=== PATIENT | male | born 1965 | race Caucasian/White ===

== ENCOUNTER → 2020-01-29 12:27 | Outpatient (BNVA) | payer OTHER, SELFPAY | PROVIDERS: PCP Internal Medicine; Referring Provider Internal Medicine; Visit Provider Internal Medicine Cardiovascular Disease | DX: Z76.89 Persons encountering health services in other specified circumstances (principal) ==

== ENCOUNTER 2020-04-25 10:28 | Outpatient (REF) | payer OTHER, SELFPAY ==
[2020-04-25 11:09] LABS: MANUAL DIFF FLAG NO
[2020-04-25 11:12] LABS: Basophils Absolute Auto 0.1 X10*3/uL (0.0-0.2); Basophils Percent Auto 0.9 % (0-2); Eosinophils Absolute Auto 0.3 X10*3/uL (0.0-0.4); Eosinophils Percent Auto 4.1 % (0-4); Hematocrit 45.4 % (42-52); Hemoglobin 15.6 g/dl (14.0-18.0); Imm Gran Abs Auto 0.03 X10*3/uL (0.00-0.03); Imm Gran Pct Auto 0.4 % (0.0-0.4); Lymphocytes Absolute Auto 1.8 X10*3/uL (1.2-4.9); Lymphocytes Percent Auto 26.3 % (20-40); Mean Corpuscular HGB Conc 34.4 g/dl (31.0-36.0); Mean Corpuscular Hemoglobin 31.4 pg (27.0-33.0); Mean Corpuscular Volume 91.3 fL (80-98); Monocytes Absolute Auto 0.7 X10*3/uL (0.1-1.2); Monocytes Percent Auto 10.7 % (2-11); Neutrophils Percent Auto 57.6 % (45-73); Platelet Count 207 X10*3/uL (160-400); Red Blood Count 4.97 X10*6/uL (4.60-5.80); Red Cell Distribution Width 12.6 % (11.0-16.0); White Blood Count 6.9 X10*3/uL (4.8-10.8)
[2020-04-25 11:27] LABS: Estimated Average Glucose 226 mg/dL; Hemoglobin A1c % 9.5 %
[2020-04-25 11:50] LABS: B Type Natriuretic Peptide 14 pg/mL (<100)
[2020-04-25 12:02] LABS: Free T4 (Free Thyroxine) 1.01 ng/dL (0.71-1.85); Thyroid Stimulating Hormone 1.04 uIU/mL (0.32-4.0)
[2020-04-25 12:11] LABS: Alanine Aminotransferase 67 U/L (0-40); Albumin Level 4.4 g/dL (3.5-5.0); Alkaline Phosphatase 67 U/L (39-117); Anion Gap 14 (12-20); Aspartate Amino Transferase 29 U/L (5-37); Blood Urea Nitrogen 20 mg/dL (9-16); Calcium 9.2 mg/dL (8.4-10.2); Carbon Dioxide 27 mmol/L (22-29); Chloride 102 mmol/L (96-108); Cholesterol 168 mg/dL; Estimated Glomerular Filt Rate > 60; Glucose Random 238 mg/dL (60-115); HDL Cholesterol 32 mg/dL; LDL Cholesterol Calculated 109 mg/dl; Potassium 4.3 mmol/L (3.3-5.1); Sodium 139 mmol/L (135-145); Total Protein 7.2 g/dL (6.5-8.0); Triglycerides 137 mg/dL
[2020-04-25 12:25] LABS: Folate 13.6 ng/mL (> or = 4.0); Vitamin B12 509 pg/mL (200-900)
== END 2020-04-25 10:29 | disposition home or self-care (01) ==
LOC: HO.LAB 10:28
PROVIDERS: PCP Internal Medicine; Visit Provider Internal Medicine
DX: E11.65 Type 2 diabetes mellitus with hyperglycemia (principal); I42.8 Other cardiomyopathies; I10 Essential (primary) hypertension; E78.00 Pure hypercholesterolemia, unspecified
CPT/HCPCS: 36415; 80053; 80061; 82607; 82746; 83036; 83880; 84439; 84443; 85025

== ENCOUNTER → 2020-07-18 13:24 | Outpatient (BNVA) | payer OTHER, SELFPAY | PROVIDERS: PCP Internal Medicine; Referring Provider Internal Medicine; Visit Provider Internal Medicine Cardiovascular Disease ==

== ENCOUNTER → 2020-09-18 15:07 | Outpatient (REF) | payer OTHER, SELFPAY ==
--- NOTE | 2020-09-18 15:12 | CA_ITS ---
Transthoracic Echocardiogram Patient (Last, First, Middle): Mark Roth P Gender: Male Date of : 1965 Age: 54 Procedure Date: 09/18/2020 Procedure Type: Transthoracic Echocardiogram Location: OP Height: 175.26 cm Weight: 133.81 kg BSA: 2.44 m2 Heart Rate: bpm BP: 130 / 82 mmHg Splunk Developer: JOB/CP Referring MD: Papi Peterson MD Detasseler: Papi Peterson MD Symptoms: I42.8 - Other cardiomyopathies Study Quality: Technically Difficult/Contrast ECG Rhythm: Ventriculary paced rhythm Conclusions: - 1. Mildly dilated left ventricle with normal LV systolic function with LVEF of 55-60% with grade 1 diastolic dysfunction 2. Normal cardiac valvular Doppler 3. Normal RV systolic pressure 4. No gross pericardial effusion Findings Procedure Information Contrast agent, definity, is being given per protocol without apparent complications. Left Ventricle Mildly increased left ventricular cavity size. There is normal left ventricular wall thickness. The left ventricular systolic function is normal. The visually estimated ejection fraction is between 55-60%. Spectral Doppler is indicative of an impaired relaxation filling pattern. E/E prime ratio is <8, consistent with normal filling pressures. Evidence suggests grade I (mild) diastolic dysfunction. Right Ventricle Normal right ventricular cavity size and systolic function. There is a pacemaker wire seen in the right ventricle. Atria The left atrium is normal in size. Interatrial shunt cannot be excluded. The right atrium is normal in size. A pacemaker wire is identified in the right atrium. Aortic Valve The aortic valve was not well visualized. There is no aortic valve stenosis. There is no aortic valve regurgitation. Mitral Valve Likely normal mitral valve structure and function. There is trace mitral valve regurgitation. There is no mitral valve stenosis. Pulmonic Valve The pulmonic valve was not well visualized. Tricuspid Valve The tricuspid valve was not well visualized. There is trace tricuspid valve regurgitation. The right ventricular systolic pressure is normal. Normal right atrial pressure. There is no evidence of pulmonary hypertension. Great Vessels All visible segments of the aorta are normal in size. The pulmonary artery was not well visualized. Venous The inferior vena cava was not well visualized. Pericardium/Pleural There is no evidence of pericardial effusion. Prior Study Comparison Changes noted compared to prior study dated: 05/24/2019. LV systolic function is normalized Measurements 2D Linear Measurements IVSd: 1.14 0.6-0.9/0.6-1.0 cm LVIDd: 5.90 3.9-5.3/4.2-5.9 cm LVIDd Index: 2.42 2.4-3.2/2.2-3.1 cm/m2 LVIDs: 4.70 2.0-3.6 cm LVPWd: 1.16 0.7-1.1 cm Ao Root: 3.40 2.1-3.5 cm LA Diam: 4.60 2.7-3.8/3.0-4.0 cm LAIDs Index: 1.89 1.5-2.3 cm/m2 LV Mass: 359.83 67-162/88-224 g LV Mass Index: 147.47 43-95/49-115 g/m2 LVOT Diam: 2.30 3.0+(-)1.3 cm 2D Systolic Function EF 4C: 57.00 >55% EF 2C: 61.50 >55% EF BiP: 59.50 >55% Mitral Valve MV Pk E: 0.67 MV PK A: 0.68 MV Decel Time: 244.00 E/A: 1.00 E'Lateral: 11.90 E'Medial: 7.62 E/E' Med: 8.80 E/E' Lat: 5.60 PHT: 72.00 MVA PHT: 3.06 Decel [place]: 2.75 Aortic Valve AoV Pk Gibran: 1.75 AoV Mn Gibran: 1.25 AoV VTI: 0.36 AoV Pk Grad: 12.00 Aov Mn Grad: 7.00 DIMITRY Cont.VTI: 2.64 LVOT LVOT Pk Gibran: 1.17 LVOT Mn Gibran: 0.82 LVOT VTI: 0.23 LVOT Pk Grad: 5.00 LVOT Mn Grad: 3.00 LVOT Diam: 2.30 LVOT Area: 4.15 Diastolic Function MV Pk E: 0.67 MV Pk A: 0.68 E/A: 1.00 E'Medial: 7.62 E/E' Med: 8.80 E' Laterial: 11.90 E/E' Lat: 5.60 Tricuspid Valve TR Pk Gibran: 1.52 TR Pk Grad: 9.00 RA Press: 3.00 RVSP: 12.00 Great Vessels Aorta Ao Root-2D: 3.40 2.0-3.7 cm Ao Asc: 3.90 2.1-3.4 cm Ao Arch: 3.50 Updated in Other Vendor System with Status of Final Papi Peterson MD electronically signed on 09/18/2020 4:57:20 PM with status of Final
== END ==
LOC: HO.CARD 15:07
PROVIDERS: PCP Internal Medicine; Visit Provider Internal Medicine Cardiovascular Disease
DX: I42.8 Other cardiomyopathies (principal)
CPT/HCPCS: 93306; Q9957

== ENCOUNTER 2020-10-28 14:52 | Outpatient (REF) | payer OTHER, SELFPAY ==
--- NOTE | ~2020-10-28 | XR_ITS ---
EXAMINATION: XR RIBS, RIGHT CLINICAL INFORMATION: Pleurodynia COMPARISON: September 26, 2019 TECHNIQUE: PA chest and 3 views of the right ribs FINDINGS: There is no evidence of acute parenchymal disease, pneumothorax, or pleural effusion. Heart normal size. No evidence of pulmonary edema. Pacemaker in place. No acute displaced right rib fracture identified. No expansile destructive bony lesion is identified. XR/XR ribs RT min 3V w CXR1V IMPRESSION: No acute parenchymal disease within the chest. No acute displaced right rib fracture.
== END 2020-10-28 14:53 | disposition home or self-care (01) ==
LOC: HO.HMGCX 14:52
PROVIDERS: PCP Internal Medicine; Visit Provider Hospitalist
DX: R07.81 Pleurodynia (principal)
CPT/HCPCS: 71101

== ENCOUNTER 2020-11-18 09:34 | Outpatient (REF) | payer OTHER, SELFPAY | END 2020-11-18 09:35 | disposition home or self-care (01) | LOC: HO.LAB 09:34 | PROVIDERS: PCP Internal Medicine; Visit Provider Internal Medicine | DX: Z13.89 Encounter for screening for other disorder (principal) ==

== ENCOUNTER → 2021-01-16 10:37 | Outpatient (BNVA) | payer OTHER, SELFPAY | PROVIDERS: PCP Internal Medicine; Referring Provider Internal Medicine; Visit Provider Internal Medicine Cardiovascular Disease | DX: Z45.02 Encounter for adjustment and management of automatic implantable cardiac defibrillator (principal); I42.8 Other cardiomyopathies | CPT/HCPCS: 93005 ==

== ENCOUNTER 2021-02-19 08:29 | Outpatient (REF) | payer OTHER, SELFPAY ==
[2021-02-19 09:52] LABS: Estimated Average Glucose 223 mg/dL; Hemoglobin A1c % 9.4 %
[2021-02-19 10:02] LABS: Alanine Aminotransferase 55 U/L (0-40); Albumin Level 4.1 g/dL (3.5-5.0); Alkaline Phosphatase 62 U/L (39-117); Anion Gap 12 (12-20); Aspartate Amino Transferase 32 U/L (5-37); Blood Urea Nitrogen 14 mg/dL (9-16); Calcium 9.3 mg/dL (8.4-10.2); Carbon Dioxide 26 mmol/L (22-29); Chloride 102 mmol/L (96-108); Cholesterol 153 mg/dL; Estimated Glomerular Filt Rate > 60; Glucose Random 241 mg/dL (60-115); HDL Cholesterol 29 mg/dL; LDL Cholesterol Calculated 91 mg/dl; Potassium 4.2 mmol/L (3.3-5.1); Sodium 136 mmol/L (135-145); Total Protein 6.8 g/dL (6.5-8.0); Triglycerides 165 mg/dL
[2021-02-19 10:36] LABS: B Type Natriuretic Peptide 17 pg/mL (<100)
== END 2021-02-19 08:30 | disposition home or self-care (01) ==
LOC: HO.LAB 08:29
PROVIDERS: PCP Internal Medicine; Visit Provider Internal Medicine
DX: E11.65 Type 2 diabetes mellitus with hyperglycemia (principal); E78.00 Pure hypercholesterolemia, unspecified; I42.8 Other cardiomyopathies
CPT/HCPCS: 36415; 80053; 80061; 83036; 83880

== ENCOUNTER 2021-03-03 12:23 | Outpatient (REF) | payer OTHER, SELFPAY ==
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
== END 2021-03-03 12:24 | disposition home or self-care (01) ==
LOC: HO.XRAY 12:23
PROVIDERS: PCP Internal Medicine; Visit Provider Nurse Practitioner Acute Care
DX: M89.8X5 Other specified disorders of bone, thigh (principal); M25.551 Pain in right hip
CPT/HCPCS: 73552

== ENCOUNTER 2021-05-29 11:37 | Outpatient (REF) | payer OTHER, SELFPAY ==
[2021-05-29 12:16] LABS: Baso%MD 0.8 %; Eos%MD 3.2 %; Hematocrit 42.8 % (42.0-52.0); Hemoglobin 14.4 g/dl (14.0-18.0); IG%MD 0.5 %; Lymph%MD 23.3 %; Mean Corpuscular HGB Conc 33.6 g/dl (31.0-36.0); Mean Corpuscular Hemoglobin 31.4 pg (27.0-33.0); Mean Corpuscular Volume 93.4 fL (80.0-98.0); Mean Platelet Volume 9.8 fL (9.4-12.4); Mono%MD 10.9 %; Neut%MD 61.3 %; Platelet Count 191 X10*3/uL (160-400); Red Blood Count 4.58 X10*6/uL (4.60-5.80); Red Cell Distribution Width 13.2 % (11.0-16.0); White Blood Count 7.9 X10*3/uL (4.8-10.8)
[2021-05-29 12:55] LABS: Band Neutrophils Percent 2 % (3-5); Eosinophils Absolute Manual 0.3 X10*3/uL (0.0-0.4); Eosinophils Percent Manual 4 % (0-4); Lymphocytes Absolute Manual 2.1 X10*3/uL (1.2-4.9); Lymphocytes Percent Manual 27 % (20-40); Monocytes Absolute Manual 0.6 X10*3/uL (0.1-1.2); Monocytes Percent Manual 8 % (2-11); Neutrophils Absolute Manual 4.8 X10*3/uL (2.0-8.3); Neutrophils Percent Manual 59 % (45-73); Platelet Estimate NORMAL (NORMAL); Platelet Morphology Comment NORMAL; RBC Morphology NORMAL
[2021-05-29 12:58] LABS: Estimated Average Glucose 203 mg/dL; Hemoglobin A1c % 8.7 %
[2021-05-29 13:28] LABS: Creatinine Urine 206.19 mg/dL; Microalbum/Creatinine Ratio Ur 4.8 ug/mg cr
[2021-05-29 14:19] LABS: Alanine Aminotransferase 51 U/L (0-40); Albumin Level 4.1 g/dL (3.5-5.0); Alkaline Phosphatase 62 U/L (39-117); Anion Gap 14 (12-20); Aspartate Amino Transferase 24 U/L (5-37); Blood Urea Nitrogen 15 mg/dL (9-16); Calcium 9.7 mg/dL (8.4-10.2); Carbon Dioxide 25 mmol/L (22-29); Chloride 104 mmol/L (96-108); Cholesterol 146 mg/dL; Estimated Glomerular Filt Rate > 60; Glucose Fasting 197 mg/dL (60-99); HDL Cholesterol 33 mg/dL; LDL Cholesterol Calculated 92 mg/dl; Sodium 139 mmol/L (135-145); Total Protein 6.8 g/dL (6.5-8.0); Triglycerides 109 mg/dL
[2021-05-29 14:43] LABS: Prostate Specific Antigen Scr 0.97 ng/mL (<0.05-4.0)
== END 2021-05-29 11:38 | disposition home or self-care (01) ==
LOC: HO.LAB 11:37
PROVIDERS: Absent Provider Internal Medicine; PCP Internal Medicine; Visit Provider Nurse Practitioner Acute Care
DX: Z12.5 Encounter for screening for malignant neoplasm of prostate (principal); E11.65 Type 2 diabetes mellitus with hyperglycemia
CPT/HCPCS: 36415; 80053; 80061; 82043; 83036; 84153; 84443; 85007; 85027

== ENCOUNTER 2021-06-13 08:02 | Outpatient (REF) | payer OTHER, SELFPAY ==
--- NOTE | ~2021-06-13 | XR_ITS ---
EXAMINATION: XR HIP, RIGHT CLINICAL INFORMATION: Pain COMPARISON: Right femur x-rays 03/03/2021 TECHNIQUE: Two views of the right hip. FINDINGS: Pelvic ring is intact. Visualized portion of the proximal right femur demonstrate no fracture. There is mild narrowing of the right femoral acetabular joint space. Small osteophyte along the superolateral right acetabular margin. Small pelvic calcifications are likely vascular in nature. Limited imaging of the left hip demonstrates mild degenerative changes. XR/XR hip RT w PEL1V IMPRESSION: Mild degenerative changes of the right hip without fracture or dislocation.
== END 2021-06-13 08:03 | disposition home or self-care (01) ==
LOC: HO.HOSX 08:02
PROVIDERS: Visit Provider Physician Assistant
DX: M70.61 Trochanteric bursitis, right hip (principal)
CPT/HCPCS: 20610; 73502; J1020

== ENCOUNTER 2021-09-10 10:03 | Outpatient (REF) | payer OTHER, SELFPAY ==
[2021-09-10 10:34] LABS: MANUAL DIFF FLAG NO
[2021-09-10 10:43] LABS: Basophils Absolute Auto 0.1 X10*3/uL (0.0-0.2); Basophils Percent Auto 0.9 % (0-2); Eosinophils Absolute Auto 0.2 X10*3/uL (0.0-0.4); Eosinophils Percent Auto 3.8 % (0-4); Imm Gran Abs Auto 0.03 X10*3/uL (0.00-0.03); Imm Gran Pct Auto 0.5 % (0.0-0.4); Lymphocytes Absolute Auto 1.5 X10*3/uL (1.2-4.9); Lymphocytes Percent Auto 25.9 % (20-40); Mean Corpuscular HGB Conc 34.1 g/dl (31.0-36.0); Mean Corpuscular Hemoglobin 31.8 pg (27.0-33.0); Mean Corpuscular Volume 93.2 fL (80.0-98.0); Mean Platelet Volume 9.6 fL (9.4-12.4); Monocytes Absolute Auto 0.7 X10*3/uL (0.1-1.2); Monocytes Percent Auto 11.4 % (2-11); Neutrophils Absolute Auto 3.3 x10*3/uL (2.0-8.3); Neutrophils Percent Auto 57.5 % (45-73); Platelet Count 206 X10*3/uL (160-400); Red Blood Count 4.72 X10*6/uL (4.60-5.80); Red Cell Distribution Width 13.2 % (11.0-16.0); White Blood Count 5.7 X10*3/uL (4.8-10.8)
[2021-09-10 10:50] LABS: Estimated Average Glucose 177 mg/dL; Hemoglobin A1c % 7.8 %
[2021-09-10 11:32] LABS: Alanine Aminotransferase 52 U/L (0-40); Albumin Level 4.3 g/dL (3.5-5.0); Alkaline Phosphatase 62 U/L (39-117); Anion Gap 12 (12-20); Aspartate Amino Transferase 34 U/L (5-37); Bilirubin Total 1.9 mg/dL (0.0-1.0); Blood Urea Nitrogen 13 mg/dL (9-16); Calcium 9.2 mg/dL (8.4-10.2); Carbon Dioxide 27 mmol/L (22-29); Chloride 106 mmol/L (96-108); Cholesterol 142 mg/dL; Estimated Glomerular Filt Rate > 60; Glucose Random 168 mg/dL (60-115); HDL Cholesterol 30 mg/dL; LDL Cholesterol Calculated 87 mg/dl; Potassium 4.3 mmol/L (3.3-5.1); Sodium 141 mmol/L (135-145); Total Protein 7.1 g/dL (6.5-8.0); Triglycerides 129 mg/dL
[2021-09-10 11:34] LABS: Free T4 (Free Thyroxine) 1.17 ng/dL (0.71-1.85); Prostate Specific Antigen Scr 0.91 ng/mL (<0.05-4.0); Thyroid Stimulating Hormone 1.24 uIU/mL (0.32-4.0)
[2021-09-10 11:48] LABS: Folate 17.3 ng/mL (> or = 4.0); Vitamin B12 339 pg/mL (200-900)
[2021-09-10 12:35] LABS: Creatinine Urine 99.76 mg/dL
[2021-09-10 15:12] LABS: Creatinine Urine 96.09 mg/dL
== END 2021-09-10 10:04 | disposition home or self-care (01) ==
LOC: HO.LAB 10:03
PROVIDERS: PCP Internal Medicine; Referring Provider Internal Medicine; Visit Provider Nurse Practitioner Acute Care
DX: Z12.5 Encounter for screening for malignant neoplasm of prostate (principal); E11.65 Type 2 diabetes mellitus with hyperglycemia; E78.00 Pure hypercholesterolemia, unspecified
CPT/HCPCS: 36415; 80053; 80061; 82043; 82607; 82746; 83036; 84153; 84439; 84443; 85025

== ENCOUNTER 2021-11-19 13:27 | Emergency (ER) | payer OTHER, SELFPAY ==
--- NOTE | 2021-11-19 13:53 | ECG_ITS ---
Test Reason : dizziness sob Blood Pressure : / mmHG Vent. Rate : 077 BPM Atrial Rate : 077 BPM P-R Int : 172 ms QRS Dur : 128 ms QT Int : 432 ms P-R-T Axes : 033 -44 124 degrees QTc Int : 488 ms Atrial-sensed ventricular-paced rhythm Abnormal ECG When compared with ECG of 16-MAY-2007 12:06, Electronic ventricular pacemaker has replaced Sinus rhythm Referred By: Generic ED Physician Electronically Signed By:PETRA HERNANDEZ
[2021-11-19 13:54] VITALS: BP 152/83; PULSE 86; RESP 18; TEMP 36.7; O2SAT 99; BMI 41.3
[2021-11-19 14:21] LABS: MANUAL DIFF FLAG NO
[2021-11-19 14:22] LABS: Basophils Percent Auto 0.7 % (0-2); Eosinophils Absolute Auto 0.2 X10*3/uL (0.0-0.4); Eosinophils Percent Auto 2.7 % (0-4); Hematocrit 43.5 % (42.0-52.0); Hemoglobin 14.7 g/dl (14.0-18.0); Imm Gran Abs Auto 0.03 X10*3/uL (0.00-0.03); Imm Gran Pct Auto 0.5 % (0.0-0.4); Lymphocytes Absolute Auto 1.4 X10*3/uL (1.2-4.9); Lymphocytes Percent Auto 22.4 % (20-40); Mean Corpuscular HGB Conc 33.8 g/dl (31.0-36.0); Mean Corpuscular Hemoglobin 31.3 pg (27.0-33.0); Mean Corpuscular Volume 92.8 fL (80.0-98.0); Mean Platelet Volume 9.7 fL (9.4-12.4); Monocytes Absolute Auto 0.5 X10*3/uL (0.1-1.2); Neutrophils Absolute Auto 3.9 x10*3/uL (2.0-8.3); Neutrophils Percent Auto 64.7 % (45-73); Platelet Count 190 X10*3/uL (160-400); Red Blood Count 4.69 X10*6/uL (4.60-5.80); Red Cell Distribution Width 12.6 % (11.0-16.0)
[2021-11-19 14:38] LABS: COVID-19 Test Negative (Negative)
[2021-11-19 14:54] LABS: Anion Gap 17 (12-20); Blood Urea Nitrogen 11 mg/dL (9-16); Calcium 9.6 mg/dL (8.4-10.2); Carbon Dioxide 22 mmol/L (22-29); Chloride 107 mmol/L (96-108); Estimated Glomerular Filt Rate > 60; Glucose Random 253 mg/dL (60-115); Potassium 3.7 mmol/L (3.3-5.1); Sodium 142 mmol/L (135-145)
[2021-11-19 14:58] LABS: Troponin-I High Sensitivity < 3.5 ng/L (<3.5-35.0)
[2021-11-19 18:20] LABS: Glucose, Whole Blood 211 mg/dL (60-115)
--- NOTE | 2021-11-19 20:01 | ED.GENADULT ---
HPI - General Adult General Chief complaint: General Medical Stated complaint: not feeling well, shaky Time Seen by Provider: 11/19/21 19:45 History of Present Illness HPI narrative: Patient is a 55-year-old male with a history of cardiomyopathy. History of diabetes, hypertension. History of ventricular tachycardia. Status post AICD placement. Patient had an episode of feeling lightheaded. Almost passed out. Not associated with chest pain. No bloody stool. The episode lasted a few minutes. He attempted to take some food to no avail initially. The symptoms eventually resolved. Patient never checked the sugar. Patient denies any fever chills coughing congestion upper respiratory symptoms. No diaphoresis. Patient's defibrillator is a Biotronik AICD. Related Data Home Medications Medication Instructions Recorded Confirmed CPAP full face mask medium size 13 #1 ea 04/22/20 09/01/21 cm H2O humidified Air furosemide 40 mg tablet 40 mg PO DAILY PRN 07/18/20 09/01/21 Previous Rx's Medication Instructions Recorded fluticasone propionate 50 2 spray intranasal DAILY #16 grams 10/30/20 mcg/actuation nasal spray,suspension (Flonase Allergy Relief) lovastatin 40 mg tablet 40 mg PO DAILY #90 tabs 11/04/20 metoprolol succinate 100 mg 100 mg PO DAILY #90 tabs 01/03/21 tablet,extended release 24 hr lidocaine 4 % topical patch 1 patch topical DAILY PRN pain #10 04/09/21 (Aspercreme (lidocaine)) ea empagliflozin 10 mg tablet 10 mg PO DAILY 30 days #30 tabs 05/29/21 (Jardiance) lisinopril 40 mg tablet 40 mg PO DAILY #90 tabs 06/06/21 metformin 1,000 mg tablet 1,000 mg PO BID #180 tabs 06/06/21 clotrimazole 1 % topical cream 1 appl topical BID 4 weeks #45 08/28/21 grams Allergies Allergy/AdvReac Type Severity Reaction Status Date / Time morphine [Morphine] Allergy Mild FLUSH, Verified 09/10/21 11:57 SHORT OF BREATH SEASONAL ALLERGIES Allergy Unknown SHORT OF Uncoded 09/10/21 11:57 BREATH Review of Systems Review of Systems: No fever no chills no chest pain Yes all other systems are reviewed and are negative PMFSH Past Medical History Attestation statement: The following information was validated with the patient. Medical History Biventricular ICD (implantable cardioverter-defibrillator) in place Fatty liver GERD (gastroesophageal reflux disease) HTN (hypertension) Hypercholesterolemia Left bundle branch block Morbid obesity Nonischemic cardiomyopathy ZAEEM (obstructive sleep apnea) Peripheral vascular disease Ventricular tachycardia Vitamin D deficiency Surgical History History of cardiac catheterization History of permanent cardiac pacemaker placement Family History Family History Father CHF (congestive heart failure) Diabetes Mother No problems noted. Social History Social History Housing: House Alcohol intake: current Alcohol intake frequency: a few times a week Patient Tobacco Use Status: Never used Tobacco e-Cigarette/Vaping Use: Never Used Second Hand Smoke Exposure: No Advance Directives: No Advance Directives Information Provided: No service: No Current occupational status: employed Cognitive needs: No Hearing needs: No Vision needs: Yes (reading glasses) Physical Exam ED Vital Signs: Vital Signs - 24 hr 11/19/21 13:54 11/19/21 21:15 Temperature 98.1 F 97.8 F Pulse Rate 86 96 Respiratory Rate 18 18 Blood Pressure 152/83 H 143/90 H Pulse Oximetry 99 98 Oxygen Delivery Method Room Air Room Air BMI result Body Mass Index 41.3 Appearance: Alert. Oriented X3. No acute distress. Eyes: Pupils equal, round and reactive to light. ENT: Pharynx normal. Neck: Normal inspection. Neck supple. No lymph nodes noted. No crepitus CVS: Normal heart rate and rhythm. Pulses normal. Normal S1 and S2 Respiratory: No respiratory distress. Breath sounds normal. No Wheezing. No rales Abdomen: Soft and nontender. No rigidity. No distention. good BS x4 Skin: Skin warm and dry. Normal skin color. Normal skin turgor. Extremities: No lower extremity edema. Neurovascular intact to all extremities. No Lacerations. No Rash Neuro: Oriented X 3. No motor deficit. No sensory deficit. Moving all extermities. No slurred speech Medical Decision Making MDM Narrative Medical decision making narrative: Patient's EKG showed a paced rhythm heart rate is 75. Patient's cardiac enzyme was negative. No distress. Neurologically intact. Patient's defibrillator was interrogated. No arrhythmia was detected. More likely patient's episode likely secondary to low sugar. Will discharge patient home. Close follow-up on an outpatient basis. In stable condition. Troponin was negative as well. Lab Data Result diagrams: 11/19/21 14:12 11/19/21 14:12 Labs: Lab Results 11/19/21 11/19/21 11/19/21 Range/Units 13:58 14:12 14:12 WBC 6.0 (4.8-10.8) X10*3/uL RBC 4.69 (4.60-5.80) X10*6/uL Hgb 14.7 (14.0-18.0) g/dl Hct 43.5 (42.0-52.0) % MCV 92.8 (80.0-98.0) fL MCH 31.3 (27.0-33.0) pg MCHC 33.8 (31.0-36.0) g/dl RDW 12.6 (11.0-16.0) % Plt Count 190 (160-400) X10*3/uL MPV 9.7 (9.4-12.4) fL Immature Gran % (Auto) 0.5 H (0.0-0.4) % Neut % (Auto) 64.7 (45-73) % Lymph % (Auto) 22.4 (20-40) % [place] % (Auto) 9.0 (2-11) % Eos % (Auto) 2.7 (0-4) % Baso % (Auto) 0.7 (0-2) % Lymph # (Auto) 1.4 (1.2-4.9) X10*3/uL [place] # (Auto) 0.5 (0.1-1.2) X10*3/uL Eos # (Auto) 0.2 (0.0-0.4) X10*3/uL Baso # (Auto) 0.0 (0.0-0.2) X10*3/uL Abs Immat Gran (auto) 0.03 (0.00-0.03) X10*3/uL Absolute Neuts (auto) 3.9 (2.0-8.3) x10*3/uL Absolute Nucleated RBC 0.000 (0.0-0.012) X10*3/uL Nucleated RBC % (auto) 0.0 (0.0-0.2) /100WBC Sodium 142 (135-145) mmol/L Potassium 3.7 (3.3-5.1) mmol/L Chloride 107 (96-108) mmol/L Carbon Dioxide 22 (22-29) mmol/L Anion Gap 17 (12-20) BUN 11 (9-16) mg/dL Creatinine 0.94 (0.5-1.4) mg/dL Estim Creat Clear Calc 117.0 Estimated GFR > 60 POC Glucose 211 H (60-115) mg/dL Random Glucose 253 H D (60-115) mg/dL Calcium 9.6 (8.4-10.2) mg/dL Troponin I High Sens (<3.5-35.0) ng/L COVID-19 (JIMY) (Negative) COVID-19 Clin Com 11/19/21 11/19/21 Range/Units 14:12 14:12 WBC (4.8-10.8) X10*3/uL RBC (4.60-5.80) X10*6/uL Hgb (14.0-18.0) g/dl Hct (42.0-52.0) % MCV (80.0-98.0) fL MCH (27.0-33.0) pg MCHC (31.0-36.0) g/dl RDW (11.0-16.0) % Plt Count (160-400) X10*3/uL MPV (9.4-12.4) fL Immature Gran % (Auto) (0.0-0.4) % Neut % (Auto) (45-73) % Lymph % (Auto) (20-40) % [place] % (Auto) (2-11) % Eos % (Auto) (0-4) % Baso % (Auto) (0-2) % Lymph # (Auto) (1.2-4.9) X10*3/uL [place] # (Auto) (0.1-1.2) X10*3/uL Eos # (Auto) (0.0-0.4) X10*3/uL Baso # (Auto) (0.0-0.2) X10*3/uL Abs Immat Gran (auto) (0.00-0.03) X10*3/uL Absolute Neuts (auto) (2.0-8.3) x10*3/uL Absolute Nucleated RBC (0.0-0.012) X10*3/uL Nucleated RBC % (auto) (0.0-0.2) /100WBC Sodium (135-145) mmol/L Potassium (3.3-5.1) mmol/L Chloride (96-108) mmol/L Carbon Dioxide (22-29) mmol/L Anion Gap (12-20) BUN (9-16) mg/dL Creatinine (0.5-1.4) mg/dL Estim Creat Clear Calc Estimated GFR POC Glucose (60-115) mg/dL Random Glucose (60-115) mg/dL Calcium (8.4-10.2) mg/dL Troponin I High Sens < 3.5 (<3.5-35.0) ng/L COVID-19 (JIMY) Negative (Negative) COVID-19 Clin Com See Note Discharge Plan Discharge Clinical Impression: Hypoglycemia, Near syncope Patient Disposition: Home, Self-Care Instructions: Near Syncope (ED), Diabetes and Nutrition (ED) Prescriptions: No Action fluticasone propionate [Flonase Allergy Relief] 50 mcg/actuation spray,suspension 2 spray intranasal DAILY Qty: 16 11RF Rx Instructions: administer into each nostril lovastatin 40 mg tablet 40 mg PO DAILY Qty: 90 3RF metoprolol succinate 100 mg tablet extended release 24 hr 100 mg PO DAILY Qty: 90 3RF metformin 1,000 mg tablet 1,000 mg PO BID Qty: 180 3RF lisinopril 40 mg tablet 40 mg PO DAILY Qty: 90 2RF (DME) CPAP full face mask medium size 13 cm H2O humidified Air 0 .Route .MEDSUPPLY Qty: 1 Jardiance 10 mg tablet 10 mg PO DAILY 30 Days Qty: 30 3RF clotrimazole 1 % cream 1 appl topical BID 28 Days Qty: 45 0RF lidocaine [Aspercreme (lidocaine)] 4 % adhesive patch,medicated 1 patch topical DAILY PRN (Reason: pain) Qty: 10 0RF furosemide 40 mg tablet 40 mg PO DAILY PRN Referrals: Po,Ondina Langford MD [Primary Care Provider] -
[2021-11-19 21:15] VITALS: BP 143/90; PULSE 96; RESP 18; TEMP 36.6; O2SAT 98
[2021-11-19 22:23] LABS: Glucose, Whole Blood 225 mg/dL (60-115)
== END 2021-11-19 22:27 | disposition home or self-care (01) ==
PROVIDERS: Emergency Medicine; Emergency Provider Emergency Medicine Emergency Medical Services; PCP Internal Medicine
DX: E11.649 Type 2 diabetes mellitus with hypoglycemia without coma (principal); I10 Essential (primary) hypertension; R07.89 Other chest pain; R42 Dizziness and giddiness; R06.02 Shortness of breath; Z20.822 Contact with and (suspected) exposure to COVID-19; Z79.899 Other long term (current) drug therapy
CPT/HCPCS: 80048; 82947; 84484; 85025; 87635; 93005; 99283

== ENCOUNTER 2022-02-11 11:41 | Outpatient (REF) | payer OTHER, SELFPAY ==
[2022-02-11 11:57] LABS: MANUAL DIFF FLAG NO
[2022-02-11 12:20] LABS: Basophils Absolute Auto 0.1 X10*3/uL (0.0-0.2); Basophils Percent Auto 0.8 % (0-2); Eosinophils Absolute Auto 0.3 X10*3/uL (0.0-0.4); Eosinophils Percent Auto 4.1 % (0-4); Hematocrit 45.9 % (42.0-52.0); Hemoglobin 15.5 g/dl (14.0-18.0); Imm Gran Abs Auto 0.03 X10*3/uL (0.00-0.03); Imm Gran Pct Auto 0.4 % (0.0-0.4); Lymphocytes Absolute Auto 1.8 X10*3/uL (1.2-4.9); Lymphocytes Percent Auto 24.1 % (20-40); Mean Corpuscular HGB Conc 33.8 g/dl (31.0-36.0); Mean Corpuscular Hemoglobin 31.3 pg (27.0-33.0); Mean Corpuscular Volume 92.5 fL (80.0-98.0); Mean Platelet Volume 9.4 fL (9.4-12.4); Monocytes Absolute Auto 0.8 X10*3/uL (0.1-1.2); Monocytes Percent Auto 11.4 % (2-11); Neutrophils Absolute Auto 4.4 x10*3/uL (2.0-8.3); Neutrophils Percent Auto 59.2 % (45-73); Platelet Count 221 X10*3/uL (160-400); Red Blood Count 4.96 X10*6/uL (4.60-5.80); Red Cell Distribution Width 12.8 % (11.0-16.0); White Blood Count 7.4 X10*3/uL (4.8-10.8)
[2022-02-11 13:28] LABS: Alanine Aminotransferase 57 U/L (0-40); Albumin Level 4.4 g/dL (3.5-5.0); Alkaline Phosphatase 74 U/L (39-117); Anion Gap 12 (12-20); Aspartate Amino Transferase 28 U/L (5-37); Bilirubin Total 1.8 mg/dL (0.0-1.0); Blood Urea Nitrogen 14 mg/dL (9-16); Calcium 9.9 mg/dL (8.4-10.2); Carbon Dioxide 26 mmol/L (22-29); Chloride 105 mmol/L (96-108); Estimated Glomerular Filt Rate > 60; Glucose Random 177 mg/dL (60-115); Sodium 139 mmol/L (135-145); Total Protein 7.1 g/dL (6.5-8.0)
[2022-02-11 14:38] LABS: Estimated Average Glucose 177 mg/dL; Hemoglobin A1c % 7.8 %
== END 2022-02-11 11:42 | disposition home or self-care (01) ==
LOC: HO.LAB 11:41
PROVIDERS: PCP Internal Medicine; Visit Provider Surgery
DX: E66.01 Morbid (severe) obesity due to excess calories (principal); K42.9 Umbilical hernia without obstruction or gangrene; E11.65 Type 2 diabetes mellitus with hyperglycemia; I42.8 Other cardiomyopathies
CPT/HCPCS: 36415; 80053; 83036; 84134; 85025

== ENCOUNTER 2022-02-20 10:15 | Outpatient (REF) | payer OTHER, SELFPAY ==
--- NOTE | ~2022-02-20 | CT_ITS ---
EXAMINATION: CT ABDOMEN AND PELVIS WITHOUT CONTRAST CLINICAL INFORMATION: Umbilical hernia without obstruction. Severe obesity. COMPARISON: None TECHNIQUE: Multidetector volumetric imaging was performed from the superior aspect of the liver through the pubic symphysis. Sagittal and coronal reformatted images were obtained on the technologist's workstation. This CT examination was performed using dose optimization techniques as appropriate, variously including the following: *Automated exposure control *Adjustment of mA and/or kV according to patient size (this includes techniques or standardized protocols for targeted exams where dose is matched to indication/reason for exam; i.e. extremities or head) *Use of iterative reconstruction technique DLP: 862 mGy-cm FINDINGS: LUNG BASES: The visualized lung bases are unremarkable. LIVER, GALLBLADDER, AND BILIARY TREE: The liver is normal in size, shape, and attenuation. No focal hepatic lesion or biliary ductal dilatation is present. There are multiple radiopaque gallstones in a contracted gallbladder. PANCREAS: Unremarkable. SPLEEN: Unremarkable. ADRENAL GLANDS: Unremarkable. KIDNEYS AND URETERS: The kidneys are normal in size, shape, and attenuation. No hydronephrosis, hydroureter, or calculi seen. No perinephric stranding. BLADDER: Unremarkable. GASTROINTESTINAL TRACT: There is scattered stool, diverticula and gas seen throughout the colon without distention. ABDOMINAL WALL: There is a small umbilical hernia containing minimal intraperitoneal fat with neck measuring 5 mm wide. LYMPH NODES: Normal. VASCULAR: Unremarkable. PELVIC VISCERA: Unremarkable. OSSEOUS STRUCTURES: There are degenerative disc changes L5-S1 disc level. Rest of the disc levels, vertebral heights and alignment are preserved. There is moderate ventral spondylosis. CT/CT abdomen pelvis wo IV con IMPRESSION: 1. Cholelithiasis without wall thickening. 2. Colonic diverticulosis without diverticulitis. 3. Small umbilical hernia containing minimal intraperitoneal fat. Fleischner guidelines were followed.
== END 2022-02-20 10:16 | disposition home or self-care (01) ==
LOC: HO.CT 10:15
PROVIDERS: PCP Internal Medicine; Visit Provider Surgery
DX: E11.65 Type 2 diabetes mellitus with hyperglycemia (principal); E66.01 Morbid (severe) obesity due to excess calories; K42.9 Umbilical hernia without obstruction or gangrene
CPT/HCPCS: 74176

== ENCOUNTER → 2022-03-11 12:58 | Outpatient (REF) | payer OTHER, SELFPAY ==
--- NOTE | 2022-03-11 13:01 | CA_ITS ---
Transthoracic Echocardiogram Patient (Last, First, Middle): Mark Roth P Gender: Male Date of : 1965 Age: 56 Procedure Date: 03/11/2022 Procedure Type: Transthoracic Echocardiogram Location: OP Height: 175.26 cm Weight: 124.74 kg BSA: 2.37 m2 Heart Rate: bpm BP: 130 / 85 mmHg Home Health Attendant: TO Referring MD: Papi Peterson MD Symptoms: I42.8 - Other cardiomyopathies Study Quality: Fair/Contrast ECG Rhythm: Sinus Conclusions: - The left ventricular systolic function is low normal. The visually estimated ejection fraction is between 50-55%. - No obvious valvular pathology seen on this study. Findings Procedure Information Contrast agent, definity, is being given per protocol without apparent complications. Left Ventricle Normal left ventricular cavity size. There is mildly increased left ventricular wall thickness. The left ventricular systolic function is low normal. The visually estimated ejection fraction is between 50-55%. There is no evidence of regional wall motion abnormalities. Diastolic function is normal for age. Right Ventricle Normal right ventricular cavity size and systolic function. Atria Both atria are normal in size. Aortic Valve There is a normal trileaflet aortic valve. There is no aortic valve stenosis. There is no aortic valve regurgitation. Mitral Valve The mitral valve appears normal. There is no mitral valve regurgitation. There is no mitral valve stenosis. Pulmonic Valve The pulmonic valve is likely normal. Tricuspid Valve There is trace tricuspid valve regurgitation. There is no evidence of pulmonary hypertension. Great Vessels The asc aorta is normal in size. Venous The inferior vena cava was not well visualized. The inferior vena cava is normal in size. Pericardium/Pleural There is no evidence of pericardial effusion. Prior Study Comparison No significant change compared to prior study dated: 09/18/2020. Recommendations, Care & Conclusions No obvious valvular pathology seen on this study. Measurements 2D Linear Measurements IVSd: 1.24 0.6-0.9/0.6-1.0 cm LVIDd: 5.54 3.9-5.3/4.2-5.9 cm LVIDd Index: 2.34 2.4-3.2/2.2-3.1 cm/m2 LVIDs: 4.11 2.0-3.6 cm LVPWd: 1.06 0.7-1.1 cm LA Diam: 4.10 2.7-3.8/3.0-4.0 cm LAIDs Index: 1.73 1.5-2.3 cm/m2 LV Mass: 324.33 67-162/88-224 g LV Mass Index: 136.85 43-95/49-115 g/m2 LVOT Diam: 2.40 3.0+(-)1.3 cm 2D Systolic Function EF 4C: 55.50 >55% EF 2C: 60.30 >55% EF BiP: 57.70 >55% Mitral Valve MV Pk E: 0.74 MV PK A: 0.78 MV Decel Time: 193.00 E/A: 0.90 E'Lateral: 8.70 E'Medial: 5.22 E/E' Med: 14.20 E/E' Lat: 8.50 PHT: 57.00 MVA PHT: 3.86 Decel [place]: 3.84 Aortic Valve AoV Pk Gibran: 1.54 AoV Mn Gibran: 1.12 AoV VTI: 0.30 AoV Pk Grad: 9.00 Aov Mn Grad: 6.00 DIMITRY Cont.VTI: 3.02 LVOT LVOT Pk Gibran: 1.09 LVOT Mn Gibran: 0.74 LVOT VTI: 0.20 LVOT Pk Grad: 5.00 LVOT Mn Grad: 3.00 LVOT Diam: 2.40 LVOT Area: 4.52 Diastolic Function MV Pk E: 0.74 MV Pk A: 0.78 E/A: 0.90 E'Medial: 5.22 E/E' Med: 14.20 E' Laterial: 8.70 E/E' Lat: 8.50 Right Ventricle TAPSE (mm): 25.40 TVS' Gibran: 12.00 Great Vessels Aorta Sinus of Valsalva: 3.47 2.0-3.5 cm Ao Asc: 3.90 2.1-3.4 cm Updated in Other Vendor System with Status of Final Kai Grant MD electronically signed on 03/13/2022 3:08:56 PM with status of Final
== END ==
LOC: HO.CARD 12:58
PROVIDERS: PCP Internal Medicine; Visit Provider Internal Medicine Cardiovascular Disease
DX: I42.8 Other cardiomyopathies (principal)
CPT/HCPCS: 93306; Q9957

== ENCOUNTER → 2022-03-16 10:06 | Outpatient (BNVA) | payer OTHER, SELFPAY | PROVIDERS: PCP Internal Medicine; Visit Provider Surgery | DX: Z13.89 Encounter for screening for other disorder (principal) ==

== ENCOUNTER → 2022-03-18 14:00 | Outpatient (BNVA) | payer OTHER, SELFPAY | PROVIDERS: PCP Internal Medicine; Visit Provider Physician Assistant Surgical | DX: E66.9 Obesity, unspecified (principal) ==

== ENCOUNTER → 2022-03-25 16:02 | Outpatient (BNVA) | payer OTHER, SELFPAY | PROVIDERS: PCP Internal Medicine; Visit Provider Dietitian, Registered | DX: E66.01 Morbid (severe) obesity due to excess calories (principal) | CPT/HCPCS: 97802 ==

== ENCOUNTER → 2022-05-04 15:02 | Outpatient (BNVA) | payer OTHER, SELFPAY | PROVIDERS: PCP Internal Medicine; Referring Provider Internal Medicine; Visit Provider Internal Medicine Cardiovascular Disease | DX: I42.8 Other cardiomyopathies (principal); Z95.810 Presence of automatic (implantable) cardiac defibrillator | CPT/HCPCS: 93005 ==

== ENCOUNTER → 2022-05-20 14:57 | Outpatient (BNVA) | payer OTHER, SELFPAY | PROVIDERS: PCP Internal Medicine; Visit Provider Surgery | DX: Z13.89 Encounter for screening for other disorder (principal) ==

== ENCOUNTER 2022-07-09 10:12 | Outpatient (REF) | payer OTHER, SELFPAY ==
[2022-07-09 10:33] LABS: MANUAL DIFF FLAG NO
[2022-07-09 11:01] LABS: Basophils Absolute Auto 0.1 X10*3/uL (0.0-0.2); Eosinophils Absolute Auto 0.3 X10*3/uL (0.0-0.4); Eosinophils Percent Auto 4.7 % (0-4); Hematocrit 45.9 % (42.0-52.0); Hemoglobin 15.5 g/dl (14.0-18.0); Imm Gran Abs Auto 0.03 X10*3/uL (0.00-0.03); Imm Gran Pct Auto 0.5 % (0.0-0.4); Lymphocytes Absolute Auto 1.4 X10*3/uL (1.2-4.9); Lymphocytes Percent Auto 22.9 % (20-40); Mean Corpuscular HGB Conc 33.8 g/dl (31.0-36.0); Mean Corpuscular Hemoglobin 31.6 pg (27.0-33.0); Mean Corpuscular Volume 93.5 fL (80.0-98.0); Mean Platelet Volume 9.4 fL (9.4-12.4); Monocytes Absolute Auto 0.7 X10*3/uL (0.1-1.2); Monocytes Percent Auto 11.1 % (2-11); Neutrophils Absolute Auto 3.5 x10*3/uL (2.0-8.3); Neutrophils Percent Auto 59.8 % (45-73); Platelet Count 216 X10*3/uL (160-400); Red Blood Count 4.91 X10*6/uL (4.60-5.80); Red Cell Distribution Width 13.1 % (11.0-16.0); White Blood Count 5.9 X10*3/uL (4.8-10.8)
[2022-07-09 12:18] LABS: Creatinine Urine 88.51 mg/dL; Microalbumin Urine < 5.0 mg/L
[2022-07-09 12:21] LABS: B Type Natriuretic Peptide 15 pg/mL (<100)
[2022-07-09 12:31] LABS: Alanine Aminotransferase 48 U/L (0-40); Albumin Level 4.2 g/dL (3.5-5.0); Alkaline Phosphatase 57 U/L (39-117); Anion Gap 11 (12-20); Aspartate Amino Transferase 24 U/L (5-37); Bilirubin Total 1.9 mg/dL (0.0-1.0); Blood Urea Nitrogen 18 mg/dL (9-16); C Reactive Protein 0.23 mg/dL (< or = 0.50); Calcium 9.6 mg/dL (8.4-10.2); Carbon Dioxide 23 mmol/L (22-29); Chloride 110 mmol/L (96-108); Cholesterol 169 mg/dL; Estimated Glomerular Filt Rate > 60; Glucose Random 135 mg/dL (60-115); HDL Cholesterol 30 mg/dL; Iron 87 mcg/dL (45-160); LDL Cholesterol Calculated 107 mg/dl; Percent Iron Saturation 29 % (15-50); Potassium 4.4 mmol/L (3.3-5.1); Sodium 140 mmol/L (135-145); Total Iron Binding Capacity 297 mcg/dL (228-428); Total Protein 6.9 g/dL (6.5-8.0); Triglycerides 161 mg/dL; Unsaturated Iron Binding 210 ug/dL
[2022-07-09 12:45] LABS: Free T4 (Free Thyroxine) 0.87 ng/dL (0.71-1.85); Prostate Specific Antigen Scr 0.75 ng/mL (<0.05-4.0)
[2022-07-09 13:09] LABS: Ferritin 620 ng/mL (20-250); Folate 11.7 ng/mL (> or = 4.0); Insulin 16 uU/mL (2-29); TSH reflex Free T4 0.92 uIU/mL (0.32-4.0); Thyroid Stimulating Hormone 0.92 uIU/mL (0.32-4.0); Vitamin B12 290 pg/mL (200-900); Vitamin D 25-OH Total 26.2 ng/mL (>30)
[2022-07-13 15:24] LABS: PTHI 48 pg/mL (16-77)
[2022-07-14 13:04] LABS: Zinc 73 mcg/dL (60-130)
[2022-07-16 00:59] LABS: Vitamin A 58 mcg/dL (38-98)
[2022-07-18 15:23] LABS: Vitamin B1 10 nmol/L (8-30)
== END 2022-07-09 10:13 | disposition home or self-care (01) ==
LOC: HO.LAB 10:12
PROVIDERS: Absent Provider Internal Medicine; PCP Internal Medicine; Visit Provider Physician Assistant Surgical
DX: Z12.5 Encounter for screening for malignant neoplasm of prostate (principal); E66.01 Morbid (severe) obesity due to excess calories; E11.65 Type 2 diabetes mellitus with hyperglycemia; I42.8 Other cardiomyopathies; E63.9 Nutritional deficiency, unspecified
CPT/HCPCS: 36415; 80053; 80061; 82043; 82306; 82607; 82728; 82746; 83525; 83540; 83880; 83970; 84153; 84425; 84439; 84443; 84590; 84630; 85025; 86140

== ENCOUNTER → 2022-09-29 23:59 | Outpatient (BNV) | payer OTHER, SELFPAY ==
--- NOTE | 2022-10-07 14:44 | MHC.OFFVIS ---
Intake Intake Visit Reasons: Remote HF Monitoring- Biotronik Allergies morphine [Morphine] Allergy (Mild, Verified 07/07/22 14:29) FLUSH, SHORT OF BREATH SEASONAL ALLERGIES Allergy (Unknown, Uncoded 07/07/22 14:29) SHORT OF BREATH PFSH Medical History (Updated 07/07/22 @ 14:54 by Ondina France MD) Biventricular ICD (implantable cardioverter-defibrillator) in place Fatty liver GERD (gastroesophageal reflux disease) HTN (hypertension) Hypercholesterolemia Left bundle branch block Morbid obesity Nonischemic cardiomyopathy AZEEM (obstructive sleep apnea) Peripheral vascular disease Ventricular tachycardia Vitamin D deficiency Surgical History History of cardiac catheterization History of permanent cardiac pacemaker placement Family History Father CHF (congestive heart failure) Diabetes Mother No problems noted. Social History Housing: House Alcohol intake: current Alcohol intake frequency: a few times a week Patient Tobacco Use Status: Never used Tobacco e-Cigarette/Vaping Use: Never Used Second Hand Smoke Exposure: No service: No Current occupational status: employed Cognitive needs: No Hearing needs: No Vision needs: Yes (reading glasses) Office Procedures Cardiac Device Check Cardiac Device Check Details: Remote heart failure report generated 09/29/2022. Heart failure parameters are stable [id number] Cardiac Device Interrogation, cardio physiologic monitor Procedure code (CPT) selection complete Coding Level of Care Code Procedure Only Diagnoses CPT Codes Cardiac Device Check - Cardiac Device 15: [id number] Cardiac Device Interrogation, cardio physiologic monitor ([id number])
== END ==
PROVIDERS: PCP Internal Medicine; Visit Provider Internal Medicine Cardiovascular Disease
DX: I42.8 Other cardiomyopathies (principal); Z95.810 Presence of automatic (implantable) cardiac defibrillator
CPT/HCPCS: 93297

== ENCOUNTER → 2022-10-05 23:59 | Outpatient (BNV) | payer OTHER, SELFPAY ==
--- NOTE | 2022-10-07 14:28 | MHC.OFFVIS ---
Intake Intake Visit Reasons: Remote ICD Check- Bitronik Allergies morphine [Morphine] Allergy (Mild, Verified 07/07/22 14:29) FLUSH, SHORT OF BREATH SEASONAL ALLERGIES Allergy (Unknown, Uncoded 07/07/22 14:29) SHORT OF BREATH PFSH Medical History (Updated 07/07/22 @ 14:54 by Ondina France MD) Biventricular ICD (implantable cardioverter-defibrillator) in place Fatty liver GERD (gastroesophageal reflux disease) HTN (hypertension) Hypercholesterolemia Left bundle branch block Morbid obesity Nonischemic cardiomyopathy AZEEM (obstructive sleep apnea) Peripheral vascular disease Ventricular tachycardia Vitamin D deficiency Surgical History History of cardiac catheterization History of permanent cardiac pacemaker placement Family History Father CHF (congestive heart failure) Diabetes Mother No problems noted. Social History Housing: House Alcohol intake: current Alcohol intake frequency: a few times a week Patient Tobacco Use Status: Never used Tobacco e-Cigarette/Vaping Use: Never Used Second Hand Smoke Exposure: No service: No Current occupational status: employed Cognitive needs: No Hearing needs: No Vision needs: Yes (reading glasses) Office Procedures Cardiac Device Check Cardiac Device Check Details: Remote ICD report generated 10/05/2022. ICD function is adequate. Bi V pacing 99% of the time [id number] Cardiac Interrogation, implant defibrillator w/interim Procedure code (CPT) selection complete Coding Level of Care Code Procedure Only Diagnoses CPT Codes Cardiac Device Check - Cardiac Device 13: [id number] Cardiac Interrogation, implant defibrillator w/interim ([id number])
== END ==
PROVIDERS: PCP Internal Medicine; Visit Provider Internal Medicine Cardiovascular Disease
DX: I42.9 Cardiomyopathy, unspecified (principal); Z95.810 Presence of automatic (implantable) cardiac defibrillator
CPT/HCPCS: 93295

== ENCOUNTER 2022-10-20 15:46 | Outpatient (AMB) | payer OTHER, SELFPAY ==
[2022-10-20 16:01] VITALS: BP 126/80; PULSE 70; O2SAT 97; BMI 40.0
--- NOTE | 2022-10-20 16:01 | MHC.PC.OV ---
Vital Signs 10/20/22 16:01 Height 5 ft 9 in Weight 271 lb BMI 40.0 BP 126/80 Blood Pressure Location Lt brachial Position Sitting Pulse 70 Pulse Source Pulse Oximeter Pulse Oximetry (%) 97 Oxygen Delivery Method Room Air Intake Visit Reasons: DM Dental Chairside Assistant Required: No Accompanied by: Self / Same As Patient Allergies morphine [Morphine] Allergy (Mild, Verified 10/20/22 16:02) FLUSH, SHORT OF BREATH SEASONAL ALLERGIES Allergy (Unknown, Uncoded 07/07/22 14:29) SHORT OF BREATH Tobacco use date assessed: 10/20/22 Dental Screening Dental Screen Date: 10/20/22 Did you have a dental visit in the last 12 months?: Yes Did you have a dental problem in the last 6 months where you did not have access to dental care?: No Was dental information given to patient?: Patient has dentist HPI DM HPI Details 56-year-old obese male with nonischemic cardiomyopathy ICD in place hypertension obstructive sleep apnea hypercholesterolemia GERD coming in for follow-up last seen in July 2022. Patient continues to follow-up with cardiology for testing of the ICD. Otherwise July 2022 last blood work cholesterol still elevated 107 LDL has requested but this was not done. Reminded patient. As for the diabetes patient has had Jardiance but this was stopped and not sure why. He has been taking semaglutide at a lower dose and did not feel any changed yet. Discussed that we need to increase Emery 0.5 is still very low. [facility] Medical History (Updated 10/20/22 @ 16:14 by Ondina France MD) Biventricular ICD (implantable cardioverter-defibrillator) in place Diabetes type 2, uncontrolled Fatty liver GERD (gastroesophageal reflux disease) HTN (hypertension) Hypercholesterolemia Left bundle branch block Morbid obesity Nonischemic cardiomyopathy AZEEM (obstructive sleep apnea) Peripheral vascular disease Ventricular tachycardia Vitamin D deficiency Surgical History History of cardiac catheterization History of permanent cardiac pacemaker placement Family History Father CHF (congestive heart failure) Diabetes Mother No problems noted. Social History Housing: House Alcohol intake: current Alcohol intake frequency: a few times a week Patient Tobacco Use Status: Never used Tobacco e-Cigarette/Vaping Use: Never Used Second Hand Smoke Exposure: No service: No Current occupational status: employed Cognitive needs: No Hearing needs: No Vision needs: Yes (reading glasses) Questionnaire PHQ-9 Over the last 2 weeks, how often have you been bothered by any of the following problems? 1. Little interest or pleasure in doing things: not at all 2. Feeling down, depressed, or hopeless: not at all 3. Trouble falling or staying asleep, or sleeping too much: not at all 4. Feeling tired or having little energy: not at all 5. Poor appetite or overeating: not at all 6. Feeling bad about yourself - or that you are a failure or have let yourself or your family down: not at all 7. Trouble concentrating on things, such as reading the newspaper or watching television: not at all 8. Moving or speaking so slowly that other people could have noticed. Or the opposite - being so fidgety or restless that you have been moving around a lot more than usual: not at all 9. Thoughts that you would be better off or of hurting yourself in some way: not at all Total score: 0 Depression Screening Interpretation: Negative Source: Developed by Drs. Jasvir Salazar, Jory Sanchez, Akira Fairbanks and colleagues, with an educational saloni from [employer]. Thrive Questionnaire Date Thrive assessed: 10/20/22 I am a: Patient What is your living situation today?: I have a steady place to live Within the past 12 months, did the food you bought not last and you didn't have the money to get more?: Never true Within the past 12 months, did you worry whether your food would run out before you got money to buy more?: Never true Do you have trouble paying for medicines?: No Do you have trouble getting transportation to medical appointments?: No Do you have trouble paying your heating and electricity bill?: No Do you have trouble taking care of your child, family member or friend?: No Do you have trouble with day-to-day activities such as bathing, preparing meals, shopping, managing finances, etc.?: No Are you currently unemployed and looking for a job?: No Are you interested in more education?: No Please select the resources that you would like help with: None Currently or been in a relationship where the following occur: no concerns reported AUDIT C Alcohol Use Questionnaire (AUDIT-C) 1. How often do you have a drink containing alcohol?: 2-3 times a week 2. How many drinks containing alcohol do you have on a typical day when you are drinking?: 1 or 2 3. How often do you have six or more drinks on one occasion?: Never Total Score: 3 Score Reviewed/Action Taken: Yes VERONICA-7 AMB Questionnaire VERONICA-7 Date VERONICA - 7 assessed: 10/20/22 Feeling nervous, anxious, or on edge: 0 = Not at all Not being able to stop or control worryin = Not at all Worrying too much about different things: 0 = Not at all Trouble relaxin = Not at all Being so restless that it is hard to sit still: 0 = Not at all Becoming easily annoyed or irritable: 0 = Not at all Feeling afraid as if something awful might happen: 0 = Not at all Total VERONICA-7 score (0-4 normal; 5-9 mild; 10-14 moderate; 15-21 severe): 0 Source: Developed by Drs. Jasvir Salazar, Jory Sanchez, Akira Fairbanks and colleagues, with an educational saloni from [employer]. Physical exam (Primary Care) Vital Signs: Last Vital Signs Pulse 70 10/20/22 16:01 BP 126/80 10/20/22 16:01 Pulse Ox 97 10/20/22 16:01 Oxygen Delivery Method Room Air 10/20/22 16:01 BMI result Body Mass Index 40.0 Tobacco/Smoking Status: Tobacco use Status Tobacco use date assessed 10/20/22 10/20/22 16:05 Patient Tobacco Use Status Never used Tobacco 10/20/22 16:05 e-Cigarette/Vaping Use Never Used 10/20/22 16:05 PHQ-9: PHQ-9 Score PHQ-9: Total score 0 10/20/22 16:05 Depression Screening Interpretation: Negative Thrive Assessment: Date of Thrive Assessment Date Thrive assessed 10/20/22 10/20/22 16:05 Currently or been in a relationship where the following occur: no concerns reported Const General: alert; No acute distress Eyes Conjunctivae: conjunctivae normal Resp Auscultation: clear to auscultation bilaterally Cardio Rate: regular rate Rhythm: regular rhythm GI Inspection: Yes normal to inspection Extrem General: Yes normal to inspection and No edema Results AMB Hemoglobin A1c AMB Hemoglobin A1c 6.6 % Last Edit by Kristi Paula CMA on 10/20/22 16:16 Assessment and Plan Assessment & Plan (1) Type 2 diabetes mellitus with hyperglycemia: Comment: Dr. Streeter Code(s): E11.65 - Type 2 diabetes mellitus with hyperglycemia Qualifiers: Diabetes mellitus assisted insulin use: without termite helper use Qualified Code(s): E11.65 - Type 2 diabetes mellitus with hyperglycemia Plan: Decrease the amount of carbohydrate intake, pasta, bread, rice and potatoes are all sugar and that is aside from all the sweet stuff, remember that fruits are good but they are Sweet also. Hemoglobin A1c goal of less than 6.5 patient is on metformin a 1000 mg twice a day and semaglutide . Patient was on Jardiance and all of a sudden was told it was discontinued. Not really sure but would need Jardiance with the semaglutide and will need to increase the dose on the semaglutide. (2) Nonischemic cardiomyopathy: Code(s): I42.8 - Other cardiomyopathies Plan: Control the blood pressure and cholesterol (3) Biventricular ICD (implantable cardioverter-defibrillator) in place: Comment: September 2019 Code(s): Z95.810 - Presence of automatic (implantable) cardiac defibrillator Plan: Patient follows up with cardiology for ICD check (4) HTN (hypertension): Code(s): I10 - Essential (primary) hypertension Qualifiers: Hypertension type: essential hypertension Qualified Code(s): I10 - Essential (primary) hypertension Plan: Continue with blood pressure medication. Decrease salt intake and exercise patient is taking metoprolol on rid mg once a day lisinopril 40 mg once a day (5) AZEEM (obstructive sleep apnea): Comment: CPAP use Code(s): G47.33 - Obstructive sleep apnea (adult) (pediatric) Plan: Continue to use the CPAP more than 4 hours night and benefits from the (6) Morbid obesity: Code(s): E66.01 - Morbid (severe) obesity due to excess calories Plan: Diet and exercise (7) Hypercholesterolemia: Code(s): E78.00 - Pure hypercholesterolemia, unspecified Plan: Avoid fried foods, chicken skin, eggs, butter margarine, pastries and meat. Be it pork or beef they have a lot of cholesterol LDL goal of less than 100 and triglyceride of less than 150 patient is presently on lovastatin 40. Patient is reminded about the blood work (8) GERD (gastroesophageal reflux disease): Code(s): K21.9 - Gastro-esophageal reflux disease without esophagitis Qualifiers: Esophagitis presence: without esophagitis Qualified Code(s): K21.9 - Gastro-esophageal reflux disease without esophagitis Plan: Avoid the foods that causes that usually spicy foods, tomato products, juices, coffee, soda and foods that your sensitive to. After eating do not lie down, allow 3-4 hours before in lie down. And keep the head of bed above 30 degrees to avoid the acid from going up. Orders: Orders AMB Hemoglobin A1c Today Z13.9 - Encounter for screening, unspecified Medications: Changed From empagliflozin 25 mg PO DAILY 30 tabs 3RF 30 days E11.65 - Type 2 diabetes mellitus with hyperglycemia To empagliflozin 25 mg PO DAILY 90 days 90 tabs 3RF E11.65 - Type 2 diabetes mellitus with hyperglycemia From semaglutide for 4 doses 0.5 mg (0.736 mL) subcut QWEEK 30 days 4 mL 1RF E11.65 - Type 2 diabetes mellitus with hyperglycemia To semaglutide for 4 doses 1 mg (0.75 mL) subcut QWEEK 30 days 3.75 mL 4RF E11.65 - Type 2 diabetes mellitus with hyperglycemia Coding Level of Care Code Est Pt Level 4 (91220) Diagnoses Type 2 diabetes mellitus with hyperglycemia E11.65 Diabetes mellitus termite helper insulin use: without assisted use Nonischemic cardiomyopathy I42.8 Biventricular ICD (implantable cardioverter-defibrillator) in place Z95.810 HTN (hypertension) I10 Hypertension type: essential hypertension AZEEM (obstructive sleep apnea) G47.33 Morbid obesity E66.01 Hypercholesterolemia E78.00 GERD (gastroesophageal reflux disease) K21.9 Esophagitis presence: without esophagitis Additional Codes PHQ-9 - 52284 - PHQ-9 Billing: Y ([id number])
== END 2022-10-20 16:28 | disposition home or self-care (01) ==
PROVIDERS: PCP Internal Medicine; Visit Provider Internal Medicine
DX: E11.65 Type 2 diabetes mellitus with hyperglycemia (principal); I10 Essential (primary) hypertension; E66.01 Morbid (severe) obesity due to excess calories; K21.9 Gastro-esophageal reflux disease without esophagitis; I42.8 Other cardiomyopathies; Z68.41 Body mass index [BMI] 40.0-44.9, adult; Z95.810 Presence of automatic (implantable) cardiac defibrillator; G47.33 Obstructive sleep apnea (adult) (pediatric); E78.00 Pure hypercholesterolemia, unspecified
CPT/HCPCS: 83036; 99214

== ENCOUNTER → 2022-10-25 23:59 | Outpatient (BNV) | payer OTHER, SELFPAY ==
--- NOTE | 2022-11-02 15:05 | MHC.OFFVIS ---
Intake Intake Visit Reasons: Remote HF Monitoring- [employer] Allergies morphine [Morphine] Allergy (Mild, Verified 11/02/22 14:38) FLUSH, SHORT OF BREATH SEASONAL ALLERGIES Allergy (Unknown, Uncoded 11/02/22 14:38) SHORT OF BREATH PFSH Medical History (Updated 10/20/22 @ 16:14 by Ondina France MD) Biventricular ICD (implantable cardioverter-defibrillator) in place Diabetes type 2, uncontrolled Fatty liver GERD (gastroesophageal reflux disease) HTN (hypertension) Hypercholesterolemia Left bundle branch block Morbid obesity Nonischemic cardiomyopathy AZEEM (obstructive sleep apnea) Peripheral vascular disease Ventricular tachycardia Vitamin D deficiency Surgical History History of cardiac catheterization History of permanent cardiac pacemaker placement Family History Father CHF (congestive heart failure) Diabetes Mother No problems noted. Social History Housing: House Alcohol intake: current Alcohol intake frequency: a few times a week Patient Tobacco Use Status: Never used Tobacco e-Cigarette/Vaping Use: Never Used Second Hand Smoke Exposure: No service: No Current occupational status: employed Cognitive needs: No Hearing needs: No Vision needs: Yes (reading glasses) Office Procedures Cardiac Device Check Cardiac Device Check Details: Remote heart failure report generated 10/25/2022. Heart failure parameters are stable [id number] Cardiac Device Interrogation, cardio physiologic monitor Procedure code (CPT) selection complete Coding Level of Care Code Procedure Only Diagnoses CPT Codes Cardiac Device Check - Cardiac Device 15: [id number] Cardiac Device Interrogation, cardio physiologic monitor ([id number])
== END ==
PROVIDERS: PCP Internal Medicine; Visit Provider Internal Medicine Cardiovascular Disease
DX: I50.9 Heart failure, unspecified (principal)
CPT/HCPCS: 93297

== ENCOUNTER 2022-11-02 14:15 | Outpatient (AMB) | payer OTHER, SELFPAY ==
--- NOTE | 2022-11-02 14:23 | A.OFFVIS_ITS ---
Intake Vital Signs 11/02/22 14:26 Height 5 ft 9 in Weight 269 lb 6.478 oz BMI 39.8 BP 110/64 Blood Pressure Location Lt brachial Position Sitting Pulse 108 H Pulse Source Pulse Oximeter Intake Visit Reasons: 6 month f/u with [employer] Intake Note: 6 month follow up with [employer] device check. Colorist Formulator Required: No Accompanied by: Self / Same As Patient Allergies morphine [Morphine] Allergy (Mild, Verified 11/02/22 14:38) FLUSH, SHORT OF BREATH SEASONAL ALLERGIES Allergy (Unknown, Uncoded 11/02/22 14:38) SHORT OF BREATH Medication List - Last Reconciled 11/02/22 by Papi Peterson MD [CPAP full face mask medium size 13 cm H2O humidified Air ] empagliflozin 25 mg PO DAILY 90 days fexofenadine 180 mg PO DAILY fluticasone propionate 50 mcg/actuation (Flonase Allergy Relief) 2 sprays intranasal DAILY furosemide 40 mg PO DAILY PRN lisinopril 40 mg PO DAILY lovastatin 40 mg PO DAILY metformin 1,000 mg PO BID metoprolol succinate ER 100 mg PO DAILY semaglutide 1 mg (0.75 mL) subcut QWEEK 30 days sildenafil 50 mg PO DAILY PRN HPI HPI Comments History of Present Illness Details Mark comes for follow-up. He has been taking all his medications. Occasionally feels twinges in his chest. Denies any rapid heart rate. Today said he has been working on lot of projects which are labor intensive and not adequately hydrating himself. He also stubbed his toe couple of weeks ago and still in pain in the left great toe. He denies any other cardiac symptoms. No ICD discharge. No lightheadedness, syncope. No orthopnea, PND, leg edema. [facility] Medical History Biventricular ICD (implantable cardioverter-defibrillator) in place Diabetes type 2, uncontrolled Fatty liver GERD (gastroesophageal reflux disease) HTN (hypertension) Hypercholesterolemia Left bundle branch block Morbid obesity Nonischemic cardiomyopathy AZEEM (obstructive sleep apnea) Peripheral vascular disease Ventricular tachycardia Vitamin D deficiency Surgical History History of cardiac catheterization History of permanent cardiac pacemaker placement Family History Father CHF (congestive heart failure) Diabetes Mother No problems noted. Social History Housing: House Alcohol intake: current Alcohol intake frequency: a few times a week Patient Tobacco Use Status: Never used Tobacco e-Cigarette/Vaping Use: Never Used Second Hand Smoke Exposure: No service: No Current occupational status: employed Cognitive needs: No Hearing needs: No Vision needs: Yes (reading glasses) Review of Systems Const Denies weakness ENT Denies dizziness Card Denies chest pain, Denies chest pain with activity, Denies syncope, Denies rapid heart rate, Denies pedal edema, Denies edema, Denies leg edema, Denies lightheadedness, Denies palpitations, Denies dyspnea, Denies dyspnea on exertion and Denies orthopnea Resp Denies cough, Denies dyspnea and Denies dyspnea on exertion GI Denies hematochezia and Denies change in stool character Musc Denies abnormal gait, Denies muscle cramps, Denies muscle weakness, Denies numbn ess, Denies radiating pain into limb and Denies tingling Neuro Denies abnormal gait, Denies dizziness, Denies syncope, Denies numbness, Denies tingling and Denies weakness Endo Denies palpitations Physical Exam Vital Signs: Last Vital Signs Pulse 108 H 11/02/22 14:26 BP 110/64 11/02/22 14:26 BMI result Body Mass Index 39.8 Const General: cooperative, comfortable, no acute distress, alert, awake and Physically active Nutritional Appearance: obese Orientation/consciousness: patient oriented x3 Limitations: no limitations Neck Neck: Yes trachea midline, Yes supple and Yes no JVD Resp Effort & Inspection: normal respiratory effort Auscultation: clear to auscultation bilaterally Cardio Jugular venous distension: no JVD Palpation: normal PMI Rate: regular rate Rhythm: regular rhythm Heart sounds: S1 normal heart sound present, S2 normal heart sound present and Other heart sounds present (S4 present) GI Inspection: Yes obesity Auscultation: normal bowel sounds Skin General skin exam: no rashes or lesions noted Neuro General: patient oriented x3 and no focal motor deficits Extrem General: Yes no clubbing, cyanosis or edema Psych Appearance: grossly normal Office Procedures Cardiac Device Check Cardiac Device Check Details: Biventricular [employer] ICD in place. Programmed in DDDR at 60 beats per minute . Atrial and biventricular pacing thresholds adequate. Pacing lead impedance is stable. Atrial ventricular sensing is excellent. Multiple high ventricular rate episode consistent with SVT or sinus tachycardia. Isolated PVCs noted. Battery life is excellent [id number] Cardiac Device Check, multi lead implantable defibrillator Procedure code (CPT) selection complete EKG Details: EKG shows sinus tachycardia with biventricular pacing [id number], Complete Assessment & Plan Assessment & Plan (1) Nonischemic cardiomyopathy: Code(s): I42.8 - Other cardiomyopathies Plan: Nonischemic cardiomyopathy most likely bundle-branch block related. Has improved with cardiac resynchronization therapy. No signs or symptoms of heart failure. Continue neurohormonal modulation with lisinopril and metoprolol therapy. Will add Corlanor to his regimen given his baseline sinus tachy have frequent sinus tachycardia to help with better rate control. Continue Jardiance although prescribed for diabetes. Currently on Lasix as need be. Daily weight monitoring avoidance of salt loading was discussed. Maintain adequate hydration. Has symptoms of twinges in his chest most likely related to isolated PVCs. Does not require additional therapy. Continue metoprolol. Avoidance of stimulants was discussed. Continue participate in weight loss program regular physical activity. Continue CPAP therapy. (2) Biventricular ICD (implantable cardioverter-defibrillator) in place: Comment: September 2019 Code(s): Z95.810 - Presence of automatic (implantable) cardiac defibrillator Plan: Biventricular ICD in place, working well. Follow remotely for heart failure as well as device function. (3) HTN (hypertension): Code(s): I10 - Essential (primary) hypertension Qualifiers: Hypertension type: essential hypertension Qualified Code(s): I10 - Essential (primary) hypertension Plan: Hypertension currently well optimized. Continue current therapy including lisinopril and metoprolol therapy. Advised to monitor blood pressure at home maintain a log. Goal blood pressure less than 130/84. Continue CPAP therapy. Will follow up in the clinic in 6 months time, sooner p.r.n.. Thank you for allowing me to partake in his care Orders: Orders CA echo transthorac w con 6 Months I42.8 - Other cardiomyopathies Medications: New ivabradine (Corlanor) must administer with a meal/food 5 mg PO BID 60 tabs 5RF I42.8 - Other cardiomyopathies Coding Level of Care Code Est Pt Level 4 (20696) Diagnoses Nonischemic cardiomyopathy I42.8 Biventricular ICD (implantable cardioverter-defibrillator) in place Z95.810 HTN (hypertension) I10 Hypertension type: essential hypertension CPT Codes Cardiac Device Check - Cardiac Device 6: [id number] Cardiac Device Check, multi lead implantable defibrillator ([id number]) EKG - CPT: 13590-Eaepslvvaodgqmdjy, Complete ([id number])
[2022-11-02 14:26] VITALS: BP 110/64; PULSE 108; BMI 39.8
== END 2022-11-02 15:13 | disposition home or self-care (01) ==
PROVIDERS: PCP Internal Medicine; Referring Provider Internal Medicine; Visit Provider Internal Medicine Cardiovascular Disease
DX: I42.8 Other cardiomyopathies (principal); Z95.810 Presence of automatic (implantable) cardiac defibrillator; I10 Essential (primary) hypertension
CPT/HCPCS: 93284; 99214

== ENCOUNTER → 2022-11-02 14:15 | Outpatient (BNVA) | payer OTHER, SELFPAY | PROVIDERS: PCP Internal Medicine; Referring Provider Internal Medicine; Visit Provider Internal Medicine Cardiovascular Disease | DX: I42.8 Other cardiomyopathies (principal); I10 Essential (primary) hypertension; Z79.899 Other long term (current) drug therapy; Z45.02 Encounter for adjustment and management of automatic implantable cardiac defibrillator | CPT/HCPCS: 93005 ==

== ENCOUNTER → 2022-11-27 23:59 | Outpatient (BNV) | payer OTHER, SELFPAY ==
--- NOTE | 2022-12-03 09:28 | MHC.OFFVIS ---
Intake Intake Visit Reasons: Remote HF Monitoring- [employer] Allergies morphine [Morphine] Allergy (Mild, Verified 11/02/22 14:38) FLUSH, SHORT OF BREATH SEASONAL ALLERGIES Allergy (Unknown, Uncoded 11/02/22 14:38) SHORT OF BREATH PFSH Medical History Biventricular ICD (implantable cardioverter-defibrillator) in place Diabetes type 2, uncontrolled Fatty liver GERD (gastroesophageal reflux disease) HTN (hypertension) Hypercholesterolemia Left bundle branch block Morbid obesity Nonischemic cardiomyopathy AZEEM (obstructive sleep apnea) Peripheral vascular disease Ventricular tachycardia Vitamin D deficiency Surgical History History of cardiac catheterization History of permanent cardiac pacemaker placement Family History Father CHF (congestive heart failure) Diabetes Mother No problems noted. Social History Housing: House Alcohol intake: current Alcohol intake frequency: a few times a week Patient Tobacco Use Status: Never used Tobacco e-Cigarette/Vaping Use: Never Used Second Hand Smoke Exposure: No service: No Current occupational status: employed Cognitive needs: No Hearing needs: No Vision needs: Yes (reading glasses) Office Procedures Cardiac Device Check Cardiac Device Check Details: Remote heart failure report generated 11/27/2022. Heart failure parameters are stable [id number] Cardiac Device Interrogation, cardio physiologic monitor Procedure code (CPT) selection complete Coding Level of Care Code Procedure Only CPT Codes Cardiac Device Check - Cardiac Device 15: [id number] Cardiac Device Interrogation, cardio physiologic monitor ([id number])
== END ==
PROVIDERS: PCP Internal Medicine; Visit Provider Internal Medicine Cardiovascular Disease
DX: I42.8 Other cardiomyopathies (principal); Z95.810 Presence of automatic (implantable) cardiac defibrillator
CPT/HCPCS: 93297

== ENCOUNTER → 2022-12-31 23:59 | Outpatient (BNV) | payer OTHER, SELFPAY ==
--- NOTE | 2022-12-31 12:44 | MHC.OFFVIS ---
Intake Intake Visit Reasons: Remote ICD Check- [employer] Allergies morphine [Morphine] Allergy (Mild, Verified 11/02/22 14:38) FLUSH, SHORT OF BREATH SEASONAL ALLERGIES Allergy (Unknown, Uncoded 11/02/22 14:38) SHORT OF BREATH PFSH Medical History Biventricular ICD (implantable cardioverter-defibrillator) in place Diabetes type 2, uncontrolled Fatty liver GERD (gastroesophageal reflux disease) HTN (hypertension) Hypercholesterolemia Left bundle branch block Morbid obesity Nonischemic cardiomyopathy AZEEM (obstructive sleep apnea) Peripheral vascular disease Ventricular tachycardia Vitamin D deficiency Surgical History History of cardiac catheterization History of permanent cardiac pacemaker placement Family History Father CHF (congestive heart failure) Diabetes Mother No problems noted. Social History Housing: House Alcohol intake: current Alcohol intake frequency: a few times a week Patient Tobacco Use Status: Never used Tobacco e-Cigarette/Vaping Use: Never Used Second Hand Smoke Exposure: No service: No Current occupational status: employed Cognitive needs: No Hearing needs: No Vision needs: Yes (reading glasses) Office Procedures Cardiac Device Check Cardiac Device Check Details: Remote ICD report generated 12/31/2022. ICD function is adequate. Bi V pacing 98% of the time [id number] Cardiac Interrogation, implant defibrillator w/interim Procedure code (CPT) selection complete Coding Level of Care Code Procedure Only CPT Codes Cardiac Device Check - Cardiac Device 13: [id number] Cardiac Interrogation, implant defibrillator w/interim ([id number])
== END ==
PROVIDERS: PCP Internal Medicine; Visit Provider Internal Medicine Cardiovascular Disease
DX: I42.9 Cardiomyopathy, unspecified (principal); Z95.810 Presence of automatic (implantable) cardiac defibrillator
CPT/HCPCS: 93295

== ENCOUNTER → 2023-01-18 23:59 | Outpatient (BNV) | payer OTHER, SELFPAY ==
--- NOTE | 2023-01-18 12:01 | MHC.OFFVIS ---
Intake Intake Visit Reasons: Remote HF Monitoring- [facility] Allergies morphine [Morphine] Allergy (Mild, Verified 11/02/22 14:38) FLUSH, SHORT OF BREATH SEASONAL ALLERGIES Allergy (Unknown, Uncoded 11/02/22 14:38) SHORT OF BREATH PFSH Medical History Biventricular ICD (implantable cardioverter-defibrillator) in place Diabetes type 2, uncontrolled Fatty liver GERD (gastroesophageal reflux disease) HTN (hypertension) Hypercholesterolemia Left bundle branch block Morbid obesity Nonischemic cardiomyopathy AZEEM (obstructive sleep apnea) Peripheral vascular disease Ventricular tachycardia Vitamin D deficiency Surgical History History of cardiac catheterization History of permanent cardiac pacemaker placement Family History Father CHF (congestive heart failure) Diabetes Mother No problems noted. Social History Housing: House Alcohol intake: current Alcohol intake frequency: a few times a week Patient Tobacco Use Status: Never used Tobacco e-Cigarette/Vaping Use: Never Used Second Hand Smoke Exposure: No service: No Current occupational status: employed Cognitive needs: No Hearing needs: No Vision needs: Yes (reading glasses) Office Procedures Cardiac Device Check Cardiac Device Check Details: Remote heart failure report generated 01/07/2023. Heart failure parameters are stable [id number] Cardiac Device Interrogation, cardio physiologic monitor Procedure code (CPT) selection complete Coding Level of Care Code Procedure Only CPT Codes Cardiac Device Check - Cardiac Device 15: [id number] Cardiac Device Interrogation, cardio physiologic monitor ([id number])
== END ==
PROVIDERS: PCP Internal Medicine; Visit Provider Internal Medicine Cardiovascular Disease
DX: I42.9 Cardiomyopathy, unspecified (principal); Z95.810 Presence of automatic (implantable) cardiac defibrillator
CPT/HCPCS: 93297

== ENCOUNTER 2023-01-21 15:46 | Outpatient (AMB) | payer OTHER, SELFPAY ==
[2023-01-21 15:48] VITALS: BP 172/84; PULSE 60; O2SAT 98; BMI 40.0
--- NOTE | 2023-01-21 15:48 | MHC.PC.OV ---
Vital Signs 01/21/23 15:48 Height 5 ft 9 in Weight 271 lb BMI 40.0 BP 172/84 H Blood Pressure Location Lt brachial Position Sitting Pulse 60 Pulse Source Pulse Oximeter Pulse Oximetry (%) 98 Oxygen Delivery Method Room Air Intake Visit Reasons: 3 mon f/u [employer] Ranger Required: No Plate Driller: Not Required per policy Accompanied by: Self / Same As Patient Allergies morphine [Morphine] Allergy (Mild, Verified 01/21/23 15:48) FLUSH, SHORT OF BREATH SEASONAL ALLERGIES Allergy (Unknown, Uncoded 01/21/23 15:48) SHORT OF BREATH Medication List - Last Reconciled 01/21/23 by Ondina France MD [CPAP full face mask medium size 13 cm H2O humidified Air ] empagliflozin 25 mg PO DAILY 90 days fexofenadine 180 mg PO DAILY fluticasone propionate 50 mcg/actuation (Flonase Allergy Relief) 2 sprays intranasal DAILY furosemide 40 mg PO DAILY PRN ivabradine (Corlanor) 5 mg PO BID lisinopril 40 mg PO DAILY lovastatin 40 mg PO DAILY metformin 1,000 mg PO BID metoprolol succinate ER 100 mg PO DAILY semaglutide 2 mg (0.75 mL) subcut QWEEK 30 days sildenafil 50 mg PO DAILY PRN Tobacco use date assessed: 10/20/22 Dental Screening Dental Screen Date: 01/21/23 Did you have a dental visit in the last 12 months?: No Did you have a dental problem in the last 6 months where you did not have access to dental care?: No Was dental information given to patient?: Patient has dentist HPI 3 mon f/u HPI Details 57-year-old obese male with diabetes mellitus nonischemic cardiomyopathy biventricular ICD hypertension obstructive sleep apnea hypercholesterolemia GERD last seen in October 2022. Patient follows up with Cardiology October 2019 imp proved with cardiac resynchronization advised to add Corlanor. states 9 weeks ago tripped and now pain on the L foot. [facility] Medical History Diabetes type 2, uncontrolled Fatty liver Ventricular tachycardia Peripheral vascular disease Vitamin D deficiency GERD (gastroesophageal reflux disease) Hypercholesterolemia Left bundle branch block AZEEM (obstructive sleep apnea) Morbid obesity HTN (hypertension) Biventricular ICD (implantable cardioverter-defibrillator) in place Nonischemic cardiomyopathy Surgical History History of permanent cardiac pacemaker placement History of cardiac catheterization Family History Father CHF (congestive heart failure) Diabetes Mother No problems noted. Social History Housing: House Alcohol intake: current Alcohol intake frequency: a few times a week Patient Tobacco Use Status: Never used Tobacco e-Cigarette/Vaping Use: Never Used Second Hand Smoke Exposure: No service: No Current occupational status: employed Cognitive needs: No Hearing needs: No Vision needs: Yes (reading glasses) Questionnaire PHQ-9 Over the last 2 weeks, how often have you been bothered by any of the following problems? 1. Little interest or pleasure in doing things: not at all 2. Feeling down, depressed, or hopeless: not at all 3. Trouble falling or staying asleep, or sleeping too much: not at all 4. Feeling tired or having little energy: not at all 5. Poor appetite or overeating: not at all 6. Feeling bad about yourself - or that you are a failure or have let yourself or your family down: not at all 7. Trouble concentrating on things, such as reading the newspaper or watching television: not at all 8. Moving or speaking so slowly that other people could have noticed. Or the opposite - being so fidgety or restless that you have been moving around a lot more than usual: not at all 9. Thoughts that you would be better off or of hurting yourself in some way: not at all Total score: 0 Depression Screening Interpretation: Negative Depression Screening Done: Yes Source: Developed by Drs. Jasvir Salazar, Jory Sanchez, Akira Fairbanks and colleagues, with an educational saloni from [employer]. Thrive Questionnaire Date Thrive assessed: 10/20/22 AUDIT C Alcohol Use Questionnaire (AUDIT-C) 1. How often do you have a drink containing alcohol?: 2-3 times a week 2. How many drinks containing alcohol do you have on a typical day when you are drinking?: 1 or 2 3. How often do you have six or more drinks on one occasion?: Never Total Score: 3 Score Reviewed/Action Taken: Yes VERONICA-7 AMB Questionnaire VERONICA-7 Date VERONICA - 7 assessed: 10/20/22 Source: Developed by Drs. Jasvir Salazar, Jory Sanchez, Akira Fairbanks and colleagues, with an educational saloni from [employer]. Physical exam (Primary Care) Vital Signs: Last Vital Signs Pulse 60 01/21/23 15:48 BP 172/84 H 01/21/23 15:48 Pulse Ox 98 01/21/23 15:48 Oxygen Delivery Method Room Air 01/21/23 15:48 BMI result Body Mass Index 40.0 Tobacco/Smoking Status: Tobacco use Status Tobacco use date assessed 10/20/22 01/21/23 15:49 Patient Tobacco Use Status Never used Tobacco 01/21/23 15:49 e-Cigarette/Vaping Use Never Used 01/21/23 15:49 PHQ-9: PHQ-9 Score PHQ-9: Total score 0 01/21/23 16:21 Depression Screening Interpretation: Negative Thrive Assessment: Date of Thrive Assessment Date Thrive assessed 10/20/22 01/21/23 15:49 Const General: alert; No acute distress Eyes Conjunctivae: conjunctivae normal Resp Auscultation: clear to auscultation bilaterally Cardio Rate: regular rate Rhythm: regular rhythm GI Inspection: Yes normal to inspection Extrem General: Yes normal to inspection and No edema Results AMB Hemoglobin A1c AMB Hemoglobin A1c 7.6 % Last Edit by KEVIN Noble on 01/21/23 16:01 Results Reviewed Results Reviewed: Laboratory Last Values Hgb A1c (Clinic) 7.6 % (4.0-6.0) H 01/21/23 15:49 Assessment and Plan Assessment & Plan (1) Type 2 diabetes mellitus with hyperglycemia: Comment: Dr. Streeter Code(s): E11.65 - Type 2 diabetes mellitus with hyperglycemia Qualifiers: Diabetes mellitus [facility] insulin use: without project management director use Qualified Code(s): E11.65 - Type 2 diabetes mellitus with hyperglycemia Plan: Decrease the amount of carbohydrate intake, pasta, bread, rice and potatoes are all sugar and that is aside from all the sweet stuff, remember that fruits are good but they are Sweet also. Hemoglobin A1c goal of less than 6.5. Patient is on metformin a 1000 mg twice a day Ozempic and Jardiance (2) Nonischemic cardiomyopathy: Code(s): I42.8 - Other cardiomyopathies Plan: Continue to follow-up with cardiology Corlanor added (3) Biventricular ICD (implantable cardioverter-defibrillator) in place: Comment: September 2019 Code(s): Z95.810 - Presence of automatic (implantable) cardiac defibrillator Plan: Patient follows up with Cardiology (4) AZEEM (obstructive sleep apnea): Comment: CPAP use Code(s): G47.33 - Obstructive sleep apnea (adult) (pediatric) Plan: Continue to use the CPAP more than 4 hours a night and benefits from this (5) Morbid obesity: Code(s): E66.01 - Morbid (severe) obesity due to excess calories Plan: Diet and exercise (6) HTN (hypertension): Code(s): I10 - Essential (primary) hypertension Qualifiers: Hypertension type: essential hypertension Qualified Code(s): I10 - Essential (primary) hypertension Plan: Continue with blood pressure medication. Decrease salt intake and exercise continue with lisinopril 40 mg once a day metoprolol 100 mg once a day (7) Hypercholesterolemia: Code(s): E78.00 - Pure hypercholesterolemia, unspecified Plan: Avoid fried foods, chicken skin, eggs, butter margarine, pastries and meat. Be it pork or beef they have a lot of cholesterol LDL goal of less than 100 and triglyceride of less than 150 on lovastatin 40 mg once a day (8) GERD (gastroesophageal reflux disease): Code(s): K21.9 - Gastro-esophageal reflux disease without esophagitis Qualifiers: Esophagitis presence: without esophagitis Qualified Code(s): K21.9 - Gastro-esophageal reflux disease without esophagitis Plan: Avoid the foods that causes that usually spicy foods, tomato products, juices, coffee, soda and foods that your sensitive to. After eating do not lie down, allow 3-4 hours before in lie down. And keep the head of bed above 30 degrees to avoid the acid from going up. (9) Foot pain, left: Code(s): M79.672 - Pain in left foot Orders: Orders XR foot LT 2V Today M79.672 - Pain in left foot AMB Hemoglobin A1c Today E11.65 - Type 2 diabetes mellitus with hyperglycemia Medications: Changed From semaglutide for 4 doses 1 mg (0.75 mL) subcut QWEEK 30 days 3.75 mL 4RF E11.65 - Type 2 diabetes mellitus with hyperglycemia To semaglutide for 4 doses 2 mg (0.75 mL) subcut QWEEK 3.75 mL 4RF 30 days E11.65 - Type 2 diabetes mellitus with hyperglycemia Refilled ivabradine (Corlanor) must administer with a meal/food 5 mg PO BID 60 tabs 5RF I42.8 - Other cardiomyopathies Coding Level of Care Code Est Pt Level 4 (15326) Diagnoses Type 2 diabetes mellitus with hyperglycemia, without long-term current use of insulin E11.65 Diabetes mellitus project management director insulin use: without project management director use Nonischemic cardiomyopathy I42.8 Biventricular ICD (implantable cardioverter-defibrillator) in place Z95.810 AZEEM (obstructive sleep apnea) G47.33 Morbid obesity E66.01 Essential hypertension I10 Hypertension type: essential hypertension Hypercholesterolemia E78.00 Gastroesophageal reflux disease without esophagitis K21.9 Esophagitis presence: without esophagitis Foot pain, left M79.672 Additional Codes PHQ-9 - 44524 - PHQ-9 Billing: ([id number])
== END 2023-01-21 16:36 | disposition home or self-care (01) ==
PROVIDERS: PCP Internal Medicine; Visit Provider Internal Medicine
DX: E11.65 Type 2 diabetes mellitus with hyperglycemia (principal); I42.8 Other cardiomyopathies; E66.01 Morbid (severe) obesity due to excess calories; Z68.41 Body mass index [BMI] 40.0-44.9, adult; Z95.810 Presence of automatic (implantable) cardiac defibrillator; G47.33 Obstructive sleep apnea (adult) (pediatric); I10 Essential (primary) hypertension; E78.00 Pure hypercholesterolemia, unspecified; K21.9 Gastro-esophageal reflux disease without esophagitis; M79.672 Pain in left foot
CPT/HCPCS: 83036; 99214

== ENCOUNTER → 2023-02-18 23:59 | Outpatient (BNV) | payer OTHER, SELFPAY ==
--- NOTE | 2023-02-18 10:34 | MHC.OFFVIS ---
Intake Intake Visit Reasons: Remote HF Monitoring- [facility] Allergies morphine [Morphine] Allergy (Mild, Verified 01/21/23 15:48) FLUSH, SHORT OF BREATH SEASONAL ALLERGIES Allergy (Unknown, Uncoded 01/21/23 15:48) SHORT OF BREATH PFSH Medical History Diabetes type 2, uncontrolled Fatty liver Ventricular tachycardia Peripheral vascular disease Vitamin D deficiency GERD (gastroesophageal reflux disease) Hypercholesterolemia Left bundle branch block AZEEM (obstructive sleep apnea) Morbid obesity HTN (hypertension) Biventricular ICD (implantable cardioverter-defibrillator) in place Nonischemic cardiomyopathy Surgical History History of permanent cardiac pacemaker placement History of cardiac catheterization Family History Father CHF (congestive heart failure) Diabetes Mother No problems noted. Social History Housing: House Alcohol intake: current Alcohol intake frequency: a few times a week Patient Tobacco Use Status: Never used Tobacco e-Cigarette/Vaping Use: Never Used Second Hand Smoke Exposure: No service: No Current occupational status: employed Cognitive needs: No Hearing needs: No Vision needs: Yes (reading glasses) Office Procedures Cardiac Device Check Cardiac Device Check Details: Remote heart failure report generated 02/18/2023. Heart failure parameters are stable [id number] Cardiac Device Interrogation, cardio physiologic monitor Procedure code (CPT) selection complete Assessment & Plan Assessment & Plan (1) Biventricular ICD (implantable cardioverter-defibrillator) in place: Comment: September 2019 Code(s): Z95.810 - Presence of automatic (implantable) cardiac defibrillator Plan: See above Coding Level of Care Code Procedure Only Diagnoses Biventricular ICD (implantable cardioverter-defibrillator) in place Z95.810 CPT Codes Cardiac Device Check - Cardiac Device 15: [id number] Cardiac Device Interrogation, cardio physiologic monitor ([id number])
== END ==
PROVIDERS: PCP Internal Medicine; Visit Provider Internal Medicine Cardiovascular Disease
DX: I42.8 Other cardiomyopathies (principal); Z95.810 Presence of automatic (implantable) cardiac defibrillator
CPT/HCPCS: 93297

== ENCOUNTER → 2023-04-01 23:59 | Outpatient (BNV) | payer OTHER, SELFPAY ==
--- NOTE | 2023-04-02 14:07 | MHC.OFFVIS ---
Intake Intake Visit Reasons: Remote ICD Check- [facility] Allergies morphine [Morphine] Allergy (Mild, Verified 01/21/23 15:48) FLUSH, SHORT OF BREATH SEASONAL ALLERGIES Allergy (Unknown, Uncoded 01/21/23 15:48) SHORT OF BREATH PFSH Medical History Diabetes type 2, uncontrolled Fatty liver Ventricular tachycardia Peripheral vascular disease Vitamin D deficiency GERD (gastroesophageal reflux disease) Hypercholesterolemia Left bundle branch block AZEEM (obstructive sleep apnea) Morbid obesity HTN (hypertension) Biventricular ICD (implantable cardioverter-defibrillator) in place Nonischemic cardiomyopathy Surgical History History of permanent cardiac pacemaker placement History of cardiac catheterization Family History Father CHF (congestive heart failure) Diabetes Mother No problems noted. Social History Housing: House Alcohol intake: current Alcohol intake frequency: a few times a week Patient Tobacco Use Status: Never used Tobacco e-Cigarette/Vaping Use: Never Used Second Hand Smoke Exposure: No service: No Current occupational status: employed Cognitive needs: No Hearing needs: No Vision needs: Yes (reading glasses) Office Procedures Cardiac Device Check Cardiac Device Check Details: Remote ICD report generated 04/01/2023. ICD function is adequate. Bi V pacing 99% of time [id number] Cardiac Interrogation, implant defibrillator w/interim Procedure code (CPT) selection complete Assessment & Plan Assessment & Plan (1) Biventricular ICD (implantable cardioverter-defibrillator) in place: Comment: September 2019 Code(s): Z95.810 - Presence of automatic (implantable) cardiac defibrillator Plan: See above Coding Level of Care Code Procedure Only Diagnoses Biventricular ICD (implantable cardioverter-defibrillator) in place Z95.810 CPT Codes Cardiac Device Check - Cardiac Device 13: [id number] Cardiac Interrogation, implant defibrillator w/interim ([id number])
== END ==
PROVIDERS: PCP Internal Medicine; Visit Provider Internal Medicine Cardiovascular Disease
DX: I42.9 Cardiomyopathy, unspecified (principal); Z95.810 Presence of automatic (implantable) cardiac defibrillator
CPT/HCPCS: 93295

== ENCOUNTER → 2023-04-05 23:59 | Outpatient (BNV) | payer OTHER, SELFPAY ==
--- NOTE | 2023-04-05 16:40 | MHC.OFFVIS ---
Intake Intake Visit Reasons: Remote HF Monitoring- [facility] Allergies morphine [Morphine] Allergy (Mild, Verified 01/21/23 15:48) FLUSH, SHORT OF BREATH SEASONAL ALLERGIES Allergy (Unknown, Uncoded 01/21/23 15:48) SHORT OF BREATH PFSH Medical History Diabetes type 2, uncontrolled Fatty liver Ventricular tachycardia Peripheral vascular disease Vitamin D deficiency GERD (gastroesophageal reflux disease) Hypercholesterolemia Left bundle branch block AZEEM (obstructive sleep apnea) Morbid obesity HTN (hypertension) Biventricular ICD (implantable cardioverter-defibrillator) in place Nonischemic cardiomyopathy Surgical History History of permanent cardiac pacemaker placement History of cardiac catheterization Family History Father CHF (congestive heart failure) Diabetes Mother No problems noted. Social History Housing: House Alcohol intake: current Alcohol intake frequency: a few times a week Patient Tobacco Use Status: Never used Tobacco e-Cigarette/Vaping Use: Never Used Second Hand Smoke Exposure: No service: No Current occupational status: employed Cognitive needs: No Hearing needs: No Vision needs: Yes (reading glasses) Office Procedures Cardiac Device Check Cardiac Device Check Details: Remote heart failure report generated 04/05/2023. Heart failure parameters are stable [id number] Cardiac Device Interrogation, cardio physiologic monitor Procedure code (CPT) selection complete Assessment & Plan Assessment & Plan (1) Biventricular ICD (implantable cardioverter-defibrillator) in place: Comment: September 2019 Code(s): Z95.810 - Presence of automatic (implantable) cardiac defibrillator Plan: See above Coding Level of Care Code Procedure Only Diagnoses Biventricular ICD (implantable cardioverter-defibrillator) in place Z95.810 CPT Codes Cardiac Device Check - Cardiac Device 15: [id number] Cardiac Device Interrogation, cardio physiologic monitor ([id number])
== END ==
PROVIDERS: PCP Internal Medicine; Visit Provider Internal Medicine Cardiovascular Disease
DX: I42.9 Cardiomyopathy, unspecified (principal); Z95.810 Presence of automatic (implantable) cardiac defibrillator
CPT/HCPCS: 93297

== ENCOUNTER → 2023-04-27 09:06 | Outpatient (REF) | payer OTHER, SELFPAY ==
--- NOTE | 2023-04-27 09:08 | CA_ITS ---
Transthoracic Echocardiogram Patient (Last, First, Middle): Mark Roth P Gender: Male Date of : 1965 Age: 57 Procedure Date: 04/27/2023 Procedure Type: Transthoracic Echocardiogram Location: OP Height: 175.26 cm Weight: 120.2 kg BSA: 2.33 m2 Heart Rate: 87 bpm BP: 120 / 75 mmHg Manager Call: LIZET Referring MD: Papi Peterson MD Collections Professional: Papi Peterson MD Symptoms: I42.8 - Other cardiomyopathies Study Quality: Fair/w Contrast ECG Rhythm: Sinus Conclusions: - 1. Low normal LV ejection fraction of 50-55% with mild LVH with grade 1 diastolic dysfunction 2. Normal cardiac valvular Dopplers 3. Normal RV systolic pressure 4. Mildly dilated ascending aorta at 4 cm 5. No pericardial effusion Findings Procedure Information Contrast agent, definity, is being given per protocol without apparent complications. Left Ventricle Normal left ventricular cavity size. There is mildly increased left ventricular wall thickness. The left ventricular systolic function is low normal. The visually estimated ejection fraction is between 50-55%. There is paradoxical septal motion consistent with a right ventricular pacemaker. Spectral Doppler is indicative of an impaired relaxation filling pattern. E/E prime ratio is <8, consistent with normal filling pressures. Evidence suggests grade I (mild) diastolic dysfunction. Right Ventricle Normal right ventricular cavity size. There is borderline right ventricular systolic function. There is an ICD wire seen in the right ventricle. Atria Both atria are normal in size. Interatrial shunt cannot be excluded. A pacemaker wire is identified in the right atrium. Aortic Valve Normal aortic valve structure and function. There is no aortic valve stenosis. There is no aortic valve regurgitation. Mitral Valve Likely normal mitral valve structure and function. There is trace mitral valve regurgitation. There is no mitral valve stenosis. Pulmonic Valve The pulmonic valve was not well visualized. Tricuspid Valve Likely normal tricuspid valve structure and function. There is trace tricuspid valve regurgitation. The right ventricular systolic pressure is normal. There is no evidence of pulmonary hypertension. Great Vessels The pulmonary artery was not well visualized. There is mild dilatation of the ascending aorta measuring 4.00 cm. Venous The inferior vena cava is normal in size and collapses greater than 50% with inspiration. Pericardium/Pleural There is no evidence of pericardial effusion. Prior Study Comparison Changes noted compared to prior study dated: 03/11/2022. Ascending aorta is mildly enlarged on this study at 4 cm Measurements 2D Linear Measurements IVSd: 1.11 0.6-0.9/0.6-1.0 cm LVIDd: 3.45 3.9-5.3/4.2-5.9 cm LVIDd Index: 1.48 2.4-3.2/2.2-3.1 cm/m2 LVIDs: 2.65 2.0-3.6 cm LVPWd: 1.34 0.7-1.1 cm LA Diam: 3.60 2.7-3.8/3.0-4.0 cm LAIDs Index: 1.55 1.5-2.3 cm/m2 LV Mass: 170.89 67-162/88-224 g LV Mass Index: 73.34 43-95/49-115 g/m2 LVOT Diam: 2.50 3.0+(-)1.3 cm 2D Systolic Function EF 4C: 52.20 >55% EF 2C: 52.90 >55% EF BiP: 52.60 >55% Mitral Valve MV Pk E: 0.45 MV PK A: 0.73 MV Decel Time: 272.00 E/A: 0.60 E'Lateral: 6.85 E'Medial: 4.79 E/E' Med: 9.50 E/E' Lat: 6.60 PHT: 80.00 MVA PHT: 2.75 Decel Garden: 1.67 Aortic Valve AoV Pk Gibran: 1.29 AoV Mn Gibran: 0.96 AoV VTI: 0.23 AoV Pk Grad: 7.00 Aov Mn Grad: 4.00 DIMITRY Cont.VTI: 3.26 LVOT LVOT Pk Gibran: 0.85 LVOT Mn Gibran: 0.63 LVOT VTI: 0.15 LVOT Pk Grad: 3.00 LVOT Mn Grad: 2.00 LVOT Diam: 2.50 LVOT Area: 4.91 Diastolic Function MV Pk E: 0.45 MV Pk A: 0.73 E/A: 0.60 E'Medial: 4.79 E/E' Med: 9.50 E' Laterial: 6.85 E/E' Lat: 6.60 Right Ventricle TAPSE (mm): 17.80 TVS' Gibran: 8.49 Tricuspid Valve TR Pk Gibran: 1.45 TR Pk Grad: 8.00 RA Press: 3.00 RVSP: 11.00 Great Vessels Aorta Sinus of Valsalva: 3.50 2.0-3.5 cm Ao Asc: 4.00 2.1-3.4 cm Ao Arch: 3.20 Pulmonary Valve PV Pk Gibran: 1.37 Peak PV Grad: 8.00 Updated in Other Vendor System with Status of Final Papi Peterson MD electronically signed on 04/27/2023 10:26:37 AM with status of Final
== END ==
LOC: HO.CARD 09:06
PROVIDERS: PCP Internal Medicine; Visit Provider Internal Medicine Cardiovascular Disease
DX: I42.8 Other cardiomyopathies (principal)
CPT/HCPCS: 93306; Q9957

== ENCOUNTER → 2023-04-27 09:08 | Outpatient (BNV) | payer OTHER, SELFPAY | PROVIDERS: PCP Internal Medicine; Visit Provider Internal Medicine Cardiovascular Disease | DX: I42.8 Other cardiomyopathies (principal) | CPT/HCPCS: 93306 ==

== ENCOUNTER 2023-04-29 14:29 | Outpatient (AMB) | payer OTHER, SELFPAY ==
[2023-04-29 14:31] VITALS: BP 122/78; PULSE 90; O2SAT 99; BMI 39.7
--- NOTE | 2023-04-29 14:31 | A.OFFPC_ITS ---
Vital Signs 04/29/23 14:31 Height 5 ft 9 in Weight 269 lb BMI 39.7 BP 122/78 Blood Pressure Location Lt brachial Position Sitting Pulse 90 Pulse Source Pulse Oximeter Pulse Oximetry (%) 99 Oxygen Delivery Method Room Air Intake Visit Reasons: Diabetes mellitus morbid obesity Intake Note: Patient is here to follow up on DM Hotbed Operator Required: No Allergies morphine [Morphine] Allergy (Mild, Verified 04/29/23 14:31) FLUSH, SHORT OF BREATH SEASONAL ALLERGIES Allergy (Unknown, Uncoded 04/29/23 14:31) SHORT OF BREATH Tobacco use date assessed: 04/29/23 Dental Screening Dental Screen Date: 04/29/23 HPI Diabetes mellitus morbid obesity HPI Details 57-year-old obese male with diabetes prudence litus nonischemic cardiomyopathy biventricular ICD obstructive sleep apnea hypertension hypercholesterolemia GERD last seen in January 2023. Patient's colonoscopy November 2016 review of the notes patient had a echocardiogram April 2023l ow normal LV ejection fraction of 50-55% with mild LVH with grade 1 diastolic dysfunction 2. Normal cardiac valvular Dopplers 3. Normal RV systolic pressure 4. Mildly dilated ascending aorta at 4 c m 5. No pericardial effusion diarrhea snce January, bloated, Complains of feeling bloated and having diarrhea for more than 3 months now patient has been on semaglutide and question that this may be the 1 causing it. Patient also is known to have cholelithiasis. Is very concerned about the family history of pancreatic cancer. Advised that will do the ultrasound and refer to Gastroenterology and try to decrease the semaglutide 1 mg per week and also get the blood work done. [facility] Medical History Diabetes type 2, uncontrolled Fatty liver Ventricular tachycardia Peripheral vascular disease Vitamin D deficiency GERD (gastroesophageal reflux disease) Hypercholesterolemia Left bundle branch block AZEEM (obstructive sleep apnea) Morbid obesity HTN (hypertension) Biventricular ICD (implantable cardioverter-defibrillator) in place Nonischemic cardiomyopathy Surgical History History of permanent cardiac pacemaker placement History of cardiac catheterization Family History Father CHF (congestive heart failure) Diabetes Mother No problems noted. Social History (Reviewed 01/21/23 @ 15:48 by KEYSHAWN Noble Housing: House Alcohol intake: current Alcohol intake frequency: a few times a week Patient Tobacco Use Status: Never used Tobacco e-Cigarette/Vaping Use: Never Used Second Hand Smoke Exposure: No service: No Current occupational status: employed Cognitive needs: No Hearing needs: No Vision needs: Yes (reading glasses) Questionnaire PHQ-9 Over the last 2 weeks, how often have you been bothered by any of the following problems? 1. Little interest or pleasure in doing things: not at all 2. Feeling down, depressed, or hopeless: not at all 3. Trouble falling or staying asleep, or sleeping too much: not at all 4. Feeling tired or having little energy: not at all 5. Poor appetite or overeating: not at all 6. Feeling bad about yourself - or that you are a failure or have let yourself or your family down: not at all 7. Trouble concentrating on things, such as reading the newspaper or watching television: not at all 8. Moving or speaking so slowly that other people could have noticed. Or the opposite - being so fidgety or restless that you have been moving around a lot more than usual: not at all 9. Thoughts that you would be better off or of hurting yourself in some way: not at all Total score: 0 Depression Screening Interpretation: Negative Depression Screening Done: Yes Source: Developed by Drs. Jasvir Salazar, Akira Joaquin and colleagues, with an educational saloni from [employer] Thrive Questionnaire Date Thrive assessed: 10/20/22 AUDIT C Alcohol Use Questionnaire (AUDIT-C) 1. How often do you have a drink containing alcohol?: 2-3 times a week 2. How many drinks containing alcohol do you have on a typical day when you are drinking?: 1 or 2 3. How often do you have six or more drinks on one occasion?: Never Total Score: 3 Score Reviewed/Action Taken: Yes VERONICA-7 AMB Questionnaire VERONICA-7 Date VERONICA - 7 assessed: 04/29/23 Source: Developed by Drs. Jasvir Salazar, Jory Sanchez, Akira Fairbanks and colleagues, with an educational saloni from [employer] Physical exam (Primary Care) Vital Signs: Last Vital Signs Pulse 90 04/29/23 14:31 BP 122/78 04/29/23 14:31 Pulse Ox 99 04/29/23 14:31 Oxygen Delivery Method Room Air 04/29/23 14:31 BMI result Body Mass Index 39.7 Tobacco/Smoking Status: Tobacco use Status Tobacco use date assessed 04/29/23 04/29/23 14:32 Patient Tobacco Use Status Never used Tobacco 04/29/23 14:32 e-Cigarette/Vaping Use Never Used 04/29/23 14:32 PHQ-9: PHQ-9 Score PHQ-9: Total score 0 04/29/23 14:45 Depression Screening Interpretation: Negative Thrive Assessment: Date of Thrive Assessment Date Thrive assessed 10/20/22 04/29/23 14:32 Const General: alert; No acute distress Eyes Conjunctivae: conjunctivae normal Resp Auscultation: clear to auscultation bilaterally Cardio Rate: regular rate Rhythm: regular rhythm GI Inspection: Yes normal to inspection Extrem General: Yes normal to inspection and No edema Results AMB Hemoglobin A1c AMB Hemoglobin A1c 6.3 % Last Edit by KEVIN Palacios on 04/29/23 14:45 Results Reviewed Results Reviewed: Laboratory Last Values Hgb A1c (Clinic) 6.3 % (4.0-6.0) H 04/29/23 14:33 Assessment and Plan Assessment & Plan (1) Type 2 diabetes mellitus with hyperglycemia: Comment: Dr. Streeter Code(s): E11.65 - Type 2 diabetes mellitus with hyperglycemia Qualifiers: Diabetes mellitus group home insulin use: without buttermaker helper use Qualified Code(s): E11.65 - Type 2 diabetes mellitus with hyperglycemia Plan: Decrease the amount of carbohydrate intake, pasta, bread, rice and potatoes are all sugar and that is aside from all the sweet stuff, remember that fruits are good but they are Sweet also. Hemoglobin A1c goal of less than 6.5. Patient on metformin 1000 mg twice a day semaglutide 2 mg once a week Jardiance of 25 mg once a day (2) Nonischemic cardiomyopathy: Code(s): I42.8 - Other cardiomyopathies Plan: Keep well hydrated continue with present medication controlled blood pressure and cholesterol. Patient has been placed on ivabradine and diuretic (3) HTN (hypertension): Code(s): I10 - Essential (primary) hypertension Qualifiers: Hypertension type: essential hypertension Qualified Code(s): I10 - Essential (primary) hypertension Plan: Continue with blood pressure medication. Decrease salt intake and exercise on lisinopril to 40 mg once a day metoprolol 150 mg once a day (4) AZEEM (obstructive sleep apnea): Comment: CPAP use Code(s): G47.33 - Obstructive sleep apnea (adult) (pediatric) Plan: Continue to use the CPAP more than 4 hours a night and benefits from this. (5) Hypercholesterolemia: Code(s): E78.00 - Pure hypercholesterolemia, unspecified Plan: Avoid fried foods, chicken skin, eggs, butter margarine, pastries and meat. Be it pork or beef they have a lot of cholesterol LDL goal of less than 70 and triglyceride of less than 150. Patient on lovastatin 40 mg once a day (6) GERD (gastroesophageal reflux disease): Code(s): K21.9 - Gastro-esophageal reflux disease without esophagitis Qualifiers: Esophagitis presence: without esophagitis Qualified Code(s): K21.9 - Gastro-esophageal reflux disease without esophagitis Plan: Avoid the foods that causes that usually spicy foods, tomato products, juices, coffee, soda and foods that your sensitive to. After eating do not lie down, allow 3-4 hours before in lie down. And keep the head of bed above 30 degrees to avoid the acid from going up. (7) Obesity: Code(s): E66.9 - Obesity, unspecified Plan: Diet and exercise (8) Cholelithiasis: Code(s): K80.20 - Calculus of gallbladder without cholecystitis without obstruction (9) Diarrhea: Code(s): R19.7 - Diarrhea, unspecified Plan: will get blood work , US abd to do , referral to Dr. Garcia, low fat diet decrease the semaglutide to 1 mg to see if this is better Orders: Orders AMB Hemoglobin A1c Today E11.65 - Type 2 diabetes mellitus with hyperglycemia US abdomen complete Today K80.20 - Calculus of gallbladder without cholecystitis without obstruction, R79.89 - Other specified abnormal findings of blood chemistry Referrals Gastroenterology Referral R19.7 - Diarrhea, unspecified Coding Level of Care Code Est Pt Level 4 (72648) Diagnoses Type 2 diabetes mellitus with hyperglycemia, without long-term current use of insulin E11.65 Diabetes mellitus group home insulin use: without group home use Nonischemic cardiomyopathy I42.8 Essential hypertension I10 Hypertension type: essential hypertension AZEEM (obstructive sleep apnea) G47.33 Hypercholesterolemia E78.00 Gastroesophageal reflux disease without esophagitis K21.9 Esophagitis presence: without esophagitis Obesity E66.9 Cholelithiasis K80.20 Diarrhea R19.7 Additional Codes PHQ-9 - 01005 - PHQ-9 Billing: ([id number])
== END 2023-04-29 15:34 | disposition home or self-care (01) ==
PROVIDERS: PCP Internal Medicine; Visit Provider Internal Medicine
DX: E11.65 Type 2 diabetes mellitus with hyperglycemia (principal); I42.8 Other cardiomyopathies; E66.9 Obesity, unspecified; Z68.39 Body mass index [BMI] 39.0-39.9, adult; I10 Essential (primary) hypertension; G47.33 Obstructive sleep apnea (adult) (pediatric); E78.00 Pure hypercholesterolemia, unspecified; K21.9 Gastro-esophageal reflux disease without esophagitis; K80.20 Calculus of gallbladder without cholecystitis without obstruction; R19.7 Diarrhea, unspecified
CPT/HCPCS: 83036; 99214

== ENCOUNTER 2023-05-03 12:22 | Outpatient (AMB) | payer OTHER, SELFPAY ==
[2023-05-03 12:34] VITALS: BP 120/76; PULSE 82; BMI 39.7
--- NOTE | 2023-05-03 12:34 | A.OFFVIS_ITS ---
Intake Vital Signs 05/03/23 12:34 Height 5 ft 9 in Weight 268 lb 15.423 oz BMI 39.7 BP 120/76 Blood Pressure Location Lt brachial Position Sitting Pulse 82 Intake Visit Reasons: 6 mth w/ biotronik Intake Note: 6 month follow-up Cornelioronigerry had rapid heart rate a month and 1/2 ago to extra metoprolol Boatswains Mate Required: No Allergies morphine [Morphine] Allergy (Mild, Verified 04/29/23 14:31) FLUSH, SHORT OF BREATH SEASONAL ALLERGIES Allergy (Unknown, Uncoded 04/29/23 14:31) SHORT OF BREATH Medication List - Last Reconciled 05/03/23 by Papi Peterson MD [CPAP full face mask medium size 13 cm H2O humidified Air ] fexofenadine 180 mg PO DAILY PRN fluticasone propionate 50 mcg/actuation (Flonase Allergy Relief) 2 sprays intranasal DAILY furosemide 40 mg PO DAILY PRN lisinopril 40 mg PO DAILY lovastatin 40 mg PO DAILY metformin 1,000 mg PO BID metoprolol succinate ER 150 mg (1.5 x 100 mg) PO DAILY 90 days semaglutide 2 mg subcut QWEEK sildenafil 50 mg PO DAILY PRN HPI HPI Comments History of Present Illness Details Mark comes for follow-up. He has been doing very well overall. He has been trying to lose weight and is been gradually losing weight. Has had no cardiac symptoms. Occasional palpitations but these are not very bothersome. Denies any exertional chest pain. No lightheadedness, syncope. No ICD discharge. No orthopnea, PND, leg edema. Has not taken Lasix for more than 6 months. Taking all his medications otherwise. Recent echocardiogram showed low normal LVEF of 50-55%. Showed mild ascending aortic aneurysm at 4 cm. [facility] Medical History Diabetes type 2, uncontrolled Fatty liver Ventricular tachycardia Peripheral vascular disease Vitamin D deficiency GERD (gastroesophageal reflux disease) Hypercholesterolemia Left bundle branch block AZEEM (obstructive sleep apnea) Morbid obesity HTN (hypertension) Biventricular ICD (implantable cardioverter-defibrillator) in place Nonischemic cardiomyopathy Surgical History History of permanent cardiac pacemaker placement History of cardiac catheterization Family History Father CHF (congestive heart failure) Diabetes Mother No problems noted. Social History Housing: House Alcohol intake: current Alcohol intake frequency: a few times a week Patient Tobacco Use Status: Never used Tobacco e-Cigarette/Vaping Use: Never Used Second Hand Smoke Exposure: No service: No Current occupational status: employed Cognitive needs: No Hearing needs: No Vision needs: Yes (reading glasses) Review of Systems Const Denies chills, Denies fatigue, Denies fever(s), Denies frequent falls, Denies weakness, Denies weight gain and Denies weight loss ENT Denies dizziness Card Denies chest pain, Denies leg edema, Denies lightheadedness, Denies palpitations, Denies dyspnea, Denies dyspnea on exertion, Denies orthopnea and Denies other (loss of consciousness) Resp Denies cough, Denies dyspnea and Denies dyspnea on exertion GI Denies hematochezia and Denies change in stool character Musc Denies abnormal gait, Denies muscle weakness, Denies numbness, Denies radiating pain into limb and Denies tingling Neuro Denies abnormal gait, Denies dizziness, Denies frequent falls, Denies numbness, Denies tingling and Denies weakness Endo Denies fatigue and Denies palpitations Physical Exam Vital Signs: Last Vital Signs Pulse 82 05/03/23 12:34 BP 120/76 05/03/23 12:34 BMI result Body Mass Index 39.7 Const General: cooperative, comfortable, no acute distress, alert, awake and Physically active Nutritional Appearance: obese Orientation/consciousness: patient oriented x3 Limitations: no limitations Neck Neck: Yes trachea midline, Yes supple and Yes no JVD Resp Effort & Inspection: normal respiratory effort Auscultation: clear to auscultation bilaterally Cardio Jugular venous distension: no JVD Palpation: normal PMI Rate: regular rate Rhythm: regular rhythm Heart sounds: S1 normal heart sound present, S2 normal heart sound present and Other heart sounds present (S4 present) GI Inspection: Yes obesity Auscultation: normal bowel sounds Skin General skin exam: no rashes or lesions noted Neuro General: patient oriented x3 and no focal motor deficits Extrem General: Yes no clubbing, cyanosis or edema Psych Appearance: grossly normal Office Procedures Cardiac Device Check Cardiac Device Check Details: Biotronik biventricular ICD in place. Programmed in DDDR at 60 beats per minute. Biventricular pacing 100% time. Few episodes of SVT noted. Atrial and RV sensing is excellent. LV sensing is on the low side. Pacing and shock lead impedance is stable. Battery life is excellent. [id number] Cardiac Device Check, multi lead implantable defibrillator Procedure code (CPT) selection complete Assessment & Plan Assessment & Plan (1) Nonischemic cardiomyopathy: Code(s): I42.8 - Other cardiomyopathies Plan: Nonischemic cardiomyopathy with much improved LV systolic function since cardiac resynchronization therapy. Suspected due to left bundle-branch block. Patient is doing well from this perspective. Continue neurohormonal modulation with lisinopril and metoprolol therapy. Signs and symptoms of heart failure were discussed. Avoidance of cardiotoxic agent such as alcohol was discussed continue participate in aggressive weight loss program. (2) Biventricular ICD (implantable cardioverter-defibrillator) in place: Comment: September 2019 Code(s): Z95.810 - Presence of automatic (implantable) cardiac defibrillator Plan: Biventricular ICD in place, working well. Reprogrammed for adequate function. Will follow remotely for heart failure as well as device function. (3) SVT (supraventricular tachycardia): Code(s): I47.10 - Supraventricular tachycardia, unspecified Plan: Supraventricular tachycardia with persistent episodes. Patient has minimal symptoms related to it. No change in therapy. Continue metoprolol therapy. Avoidance of stimulants was discussed. (4) Thoracic aortic aneurysm: Code(s): I71.20 - Thoracic aortic aneurysm, without rupture, unspecified Plan: Mild thoracic aortic aneurysm without any significant change in the size. Will continue monitor annually by echocardiogram. Continue aggressive blood pressure control as above. Lipid modification goal LDL at least less than 100 mg/dL. Avoidance sudden strenuous isometric exercise was discussed. Follow up in the clinic in 6 months time, sooner p.r.n.. Thank you for allowing me to partake in his care Medications: Changed From semaglutide for 4 doses 2 mg (0.75 mL) subcut QWEEK 30 days 3.75 mL 4RF E11.65 - Type 2 diabetes mellitus with hyperglycemia To semaglutide for 4 doses 2 mg subcut QWEEK E11.65 - Type 2 diabetes mellitus with hyperglycemia Coding Level of Care Code Est Pt Level 4 (99621) Diagnoses Nonischemic cardiomyopathy I42.8 Biventricular ICD (implantable cardioverter-defibrillator) in place Z95.810 SVT (supraventricular tachycardia) I47.10 Thoracic aortic aneurysm I71.20 CPT Codes Cardiac Device Check - Cardiac Device 6: [id number] Cardiac Device Check, multi lead implantable defibrillator ([id number])
== END 2023-05-03 13:17 | disposition home or self-care (01) ==
PROVIDERS: PCP Internal Medicine; Visit Provider Internal Medicine Cardiovascular Disease
DX: I42.8 Other cardiomyopathies (principal); I47.10 Supraventricular tachycardia, unspecified; I71.20 Thoracic aortic aneurysm, without rupture, unspecified; Z95.810 Presence of automatic (implantable) cardiac defibrillator
CPT/HCPCS: 93284; 99214

== ENCOUNTER → 2023-05-03 12:22 | Outpatient (BNVA) | payer OTHER, SELFPAY | PROVIDERS: PCP Internal Medicine; Visit Provider Internal Medicine Cardiovascular Disease ==

== ENCOUNTER → 2023-05-09 23:59 | Outpatient (BNV) | payer OTHER, SELFPAY ==
--- NOTE | 2023-05-10 16:35 | A.OFFVIS_ITS ---
Intake Intake Visit Reasons: Remote HF Monitoring- Biotronik Allergies morphine [Morphine] Allergy (Mild, Verified 04/29/23 14:31) FLUSH, SHORT OF BREATH SEASONAL ALLERGIES Allergy (Unknown, Uncoded 04/29/23 14:31) SHORT OF BREATH PFSH Medical History Diabetes type 2, uncontrolled Fatty liver Ventricular tachycardia Peripheral vascular disease Vitamin D deficiency GERD (gastroesophageal reflux disease) Hypercholesterolemia Left bundle branch block AZEEM (obstructive sleep apnea) Morbid obesity HTN (hypertension) Biventricular ICD (implantable cardioverter-defibrillator) in place Nonischemic cardiomyopathy Surgical History History of permanent cardiac pacemaker placement History of cardiac catheterization Family History Father CHF (congestive heart failure) Diabetes Mother No problems noted. Social History Housing: House Alcohol intake: current Alcohol intake frequency: a few times a week Patient Tobacco Use Status: Never used Tobacco e-Cigarette/Vaping Use: Never Used Second Hand Smoke Exposure: No service: No Current occupational status: employed Cognitive needs: No Hearing needs: No Vision needs: Yes (reading glasses) Office Procedures Cardiac Device Check Cardiac Device Check Details: Remote heart failure report generated 05/10/2023. Heart failure parameters are stable [id number] Cardiac Device Interrogation, cardio physiologic monitor Procedure code (CPT) selection complete Assessment & Plan Assessment & Plan (1) Biventricular ICD (implantable cardioverter-defibrillator) in place: Comment: September 2019 Code(s): Z95.810 - Presence of automatic (implantable) cardiac defibrillator Plan: See above Coding Level of Care Code Procedure Only Diagnoses Biventricular ICD (implantable cardioverter-defibrillator) in place Z95.810 CPT Codes Cardiac Device Check - Cardiac Device 15: [id number] Cardiac Device Interr ogation, cardio physiologic monitor ([id number])
== END ==
PROVIDERS: PCP Internal Medicine; Visit Provider Internal Medicine Cardiovascular Disease
DX: I42.8 Other cardiomyopathies (principal); Z95.810 Presence of automatic (implantable) cardiac defibrillator
CPT/HCPCS: 93297

== ENCOUNTER 2023-05-19 08:25 | Outpatient (REF) | payer OTHER, SELFPAY ==
--- NOTE | ~2023-05-19 | US_ITS ---
EXAMINATION: US ABDOMEN COMPLETE CLINICAL INFORMATION: Abnormal findings of blood chemistry. COMPARISON: CT abdomen and pelvis 02/20/2022. TECHNIQUE: Real-time imaging of the abdominal viscera. FINDINGS: PANCREAS: Normal. ABDOMINAL AORTA: The proximal, mid, and distal segments are normal in caliber. INFERIOR VENA CAVA: Visualized portions are normal. LIVER: The liver is enlarged measuring 17.5 cm. There is diffusely increased parenchymal echogenicity with attenuation of the sound beam consistent with steatosis. An area of focal fatty sparing is seen along the gallbladder fossa, similar to CT scan from 02/20/2022. GALLBLADDER: Normal. The gallbladder is physiologically distended without evidence Of stones, sludge, polyps, wall thickening or pericholecystic fluid. COMMON BILE DUCT: Normal in caliber measuring 0.2 cm in diameter. RIGHT KIDNEY: Normal. No hydronephrosis. No renal calculi or focal parenchymal lesions. The kidney measures 11.0 cm in maximum dimension. LEFT KIDNEY: Normal. No hydronephrosis. No renal calculi or focal parenchymal lesions. The kidney measures 10.7 cm in maximum dimension. SPLEEN: Normal. The spleen measures 11.8 cm in maximum dimension. FREE FLUID: None. US/US abdomen complete IMPRESSION: Hepatic steatosis. No biliary ductal dilatation.
== END 2023-05-19 08:26 | disposition home or self-care (01) ==
LOC: HO.US 08:25
PROVIDERS: PCP Internal Medicine; Visit Provider Internal Medicine
DX: R79.89 Other specified abnormal findings of blood chemistry (principal); K80.20 Calculus of gallbladder without cholecystitis without obstruction
CPT/HCPCS: 76700

== ENCOUNTER → 2023-06-11 23:59 | Outpatient (BNV) | payer OTHER, SELFPAY ==
--- NOTE | 2023-06-14 16:17 | A.OFFVIS_ITS ---
Intake Intake Visit Reasons: Remote HF monitoring- Biotronik Allergies morphine [Morphine] Allergy (Mild, Verified 04/29/23 14:31) FLUSH, SHORT OF BREATH SEASONAL ALLERGIES Allergy (Unknown, Uncoded 04/29/23 14:31) SHORT OF BREATH PFSH Medical History (Updated 05/21/23 @ 18:28 by Ondina France MD) Diabetes type 2, uncontrolled Fatty liver Ventricular tachycardia Peripheral vascular disease Vitamin D deficiency GERD (gastroesophageal reflux disease) Hypercholesterolemia Left bundle branch block AZEEM (obstructive sleep apnea) Morbid obesity HTN (hypertension) Biventricular ICD (implantable cardioverter-defibrillator) in place Nonischemic cardiomyopathy Surgical History History of permanent cardiac pacemaker placement History of cardiac catheterization Family History Father CHF (congestive heart failure) Diabetes Mother No problems noted. Social History Housing: House Alcohol intake: current Alcohol intake frequency: a few times a week Patient Tobacco Use Status: Never used Tobacco e-Cigarette/Vaping Use: Never Used Second Hand Smoke Exposure: No service: No Current occupational status: employed Cognitive needs: No Hearing needs: No Vision needs: Yes (reading glasses) Office Procedures Cardiac Device Check Cardiac Device Check Details: Remote heart failure report generated 06/11/2023. Heart failure parameters are stable [id number] Cardiac Device Interrogation, cardio physiologic monitor Procedure code (CPT) selection complete Assessment & Plan Assessment & Plan (1) Biventricular ICD (implantable cardioverter-defibrillator) in place: Comment: September 2019 Code(s): Z95.810 - Presence of automatic (implantable) cardiac defibrillator Plan: See above Coding Level of Care Code Procedure Only Diagnoses Biventricular ICD (implantable cardioverter-defibrillator) in place Z95.810 CPT Codes Cardiac Device Check - Cardiac Device 15: [id number] Cardiac Device Inter rogation, cardio physiologic monitor ([id number])
== END ==
PROVIDERS: PCP Internal Medicine; Visit Provider Internal Medicine Cardiovascular Disease
DX: Z45.02 Encounter for adjustment and management of automatic implantable cardiac defibrillator (principal)
CPT/HCPCS: 93297

== ENCOUNTER → 2023-07-08 23:59 | Outpatient (BNV) | payer OTHER, SELFPAY ==
--- NOTE | 2023-07-08 14:27 | A.OFFVIS_ITS ---
Intake Visit Reasons: Remote ICD check- Biotronik Allergies morphine [Morphine] Allergy (Mild, Verified 04/29/23 14:31) FLUSH, SHORT OF BREATH SEASONAL ALLERGIES Allergy (Unknown, Uncoded 04/29/23 14:31) SHORT OF BREATH [facility] Medical History (Updated 05/21/23 @ 18:28 by Ondina France MD) Diabetes type 2, uncontrolled Fatty liver Ventricular tachycardia Peripheral vascular disease Vitamin D deficiency GERD (gastroesophageal reflux disease) Hypercholesterolemia Left bundle branch block AZEEM (obstructive sleep apnea) Morbid obesity HTN (hypertension) Biventricular ICD (implantable cardioverter-defibrillator) in place Nonischemic cardiomyopathy Surgical History History of permanent cardiac pacemaker placement History of cardiac catheterization Family History Father CHF (congestive heart failure) Diabetes Mother No problems noted. Social History Housing: House Alcohol intake: current Alcohol intake frequency: a few times a week Patient Tobacco Use Status: Never used Tobacco e-Cigarette/Vaping Use: Never Used Second Hand Smoke Exposure: No service: No Current occupational status: employed Cognitive needs: No Hearing needs: No Vision needs: Yes (reading glasses) Office Procedures Cardiac Device Check Cardiac Device Check Details: Remote ICD report generated 07/08/2023. Bi V pacing 100% of time. ICD function is adequate [id number] Cardiac Interrogation, implant defibrillator w/interim Procedure code (CPT) selection complete Assessment & Plan Assessment & Plan (1) Biventricular ICD (implantable cardioverter-defibrillator) in place: Comment: September 2019 Code(s): Z95.810 - Presence of automatic (implantable) cardiac defibrillator Category: Medical Plan: See above Coding Level of Care Code Procedure Only Diagnoses Biventricular ICD (implantable cardioverter-defibrillator) in place Z95.810 CPT Codes Cardiac Device Check - Cardiac Device 13: [id number] Cardiac Interrogation, implant defibrillator w/interim ([id number])
== END ==
PROVIDERS: PCP Internal Medicine; Visit Provider Internal Medicine Cardiovascular Disease
DX: Z45.02 Encounter for adjustment and management of automatic implantable cardiac defibrillator (principal)
CPT/HCPCS: 93295

== ENCOUNTER → 2023-07-16 23:59 | Outpatient (BNV) | payer OTHER, SELFPAY ==
--- NOTE | 2023-07-19 11:23 | MHC.OFFVIS ---
Intake Visit Reasons: REmote HF monitoring- [employer] Allergies morphine [Morphine] Allergy (Mild, Verified 04/29/23 14:31) FLUSH, SHORT OF BREATH SEASONAL ALLERGIES Allergy (Unknown, Uncoded 04/29/23 14:31) SHORT OF BREATH [facility] Medical History (Updated 05/21/23 @ 18:28 by Ondina France MD) Diabetes type 2, uncontrolled Fatty liver Ventricular tachycardia Peripheral vascular disease Vitamin D deficiency GERD (gastroesophageal reflux disease) Hypercholesterolemia Left bundle branch block AZEEM (obstructive sleep apnea) Morbid obesity HTN (hypertension) Biventricular ICD (implantable cardioverter-defibrillator) in place Nonischemic cardiomyopathy Surgical History History of permanent cardiac pacemaker placement History of cardiac catheterization Family History Father CHF (congestive heart failure) Diabetes Mother No problems noted. Social History Housing: House Alcohol intake: current Alcohol intake frequency: a few times a week Patient Tobacco Use Status: Never used Tobacco e-Cigarette/Vaping Use: Never Used Second Hand Smoke Exposure: No service: No Current occupational status: employed Cognitive needs: No Hearing needs: No Vision needs: Yes (reading glasses) Office Procedures Cardiac Device Check Cardiac Device Check Details: Remote heart failure report generated 07/16/2023. Heart failure parameters are stable [id number] Cardiac Device Interrogation, cardio physiologic monitor Procedure code (CPT) selection complete Assessment & Plan Assessment & Plan (1) Biventricular ICD (implantable cardioverter-defibrillator) in place: Comment: September 2019 Code(s): Z95.810 - Presence of automatic (implantable) cardiac defibrillator Category: Medical Plan: See above Coding Level of Care Code Procedure Only Diagnoses Biventricular ICD (implantable cardioverter-defibrillator) in place Z95.810 CPT Codes Cardiac Device Check - Cardiac Device 15: [id number] Cardiac Device Interrogation, cardio physiologic monitor ([id number])
== END ==
PROVIDERS: PCP Internal Medicine; Visit Provider Internal Medicine Cardiovascular Disease
DX: Z45.02 Encounter for adjustment and management of automatic implantable cardiac defibrillator (principal)
CPT/HCPCS: 93297

== ENCOUNTER 2023-08-03 15:51 | Outpatient (AMB) | payer OTHER, SELFPAY ==
--- NOTE | 2023-08-03 15:57 | A.OFFPC_ITS ---
Vital Signs 08/03/23 15:58 Height 5 ft 9 in Weight 275 lb 4 oz BMI 40.6 BP 152/78 H Blood Pressure Location Lt brachial Position Sitting Pulse 84 Pulse Source Pulse Oximeter Pulse Oximetry (%) 97 Oxygen Delivery Method Room Air Intake Visit Reasons: DM Intake Note: Patient is here to follow up on DM. 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 Technician Required: No Academic Assistant: Not Required per policy Accompanied by: Self / Same As Patient Allergies morphine [Morphine] Allergy (Mild, Verified 08/03/23 15:58) FLUSH, SHORT OF BREATH SEASONAL ALLERGIES Allergy (Unknown, Uncoded 08/03/23 15:58) SHORT OF BREATH Medication List - Last Reconciled 08/03/23 by Ondina France MD [CPAP full face mask medium size 13 cm H2O humidified Air ] fexofenadine 180 mg PO DAILY PRN fluticasone propionate 50 mcg/actuation (Flonase Allergy Relief) 2 sprays intranasal DAILY furosemide 40 mg PO DAILY PRN lisinopril 40 mg PO DAILY lovastatin 40 mg PO DAILY metformin 1,000 mg PO BID metoprolol succinate ER 150 mg (1.5 x 100 mg) PO DAILY 90 days semaglutide 2 mg subcut QWEEK sildenafil 50 mg PO DAILY PRN Tobacco use date assessed: 08/03/23 Dental Screening Dental Screen Date: 04/29/23 HPI DM HPI Details 57-year-old obese male with controlled d iabetes mellitus nonischemic cardiomyopathy hypertension sleep apnea hypercholesterolemia GERD coming in for follow-up. Last seen in 04/27/2023. Patient has an ICD and being monitored by Cardiology regularly patient is up-to-date with ophthalmology exam 02/24/2023 noted 05/25/2022 ultrasound of the abdomen showing hepatic steatosis no stones noted. April saw cardiology cardiac resynchronization improved LV function noted on last echo to have a thoracic aortic aneurysm no change in size 4 cm cholesterol advised to get it below 100. 1 month [facility] Medical History (Updated 08/03/23 @ 16:04 by Ondina France MD) Diabetes type 2, uncontrolled Fatty liver Ventricular tachycardia Peripheral vascular disease Vitamin D deficiency GERD (gastroesophageal reflux disease) Hypercholesterolemia Left bundle branch block AZEEM (obstructive sleep apnea) Morbid obesity HTN (hypertension) Biventricular ICD (implantable cardioverter-defibrillator) in place Nonischemic cardiomyopathy Surgical History History of permanent cardiac pacemaker placement History of cardiac catheterization Family History Father CHF (congestive heart failure) Diabetes Mother No problems noted. Social History Housing: House Alcohol intake: current Alcohol intake frequency: a few times a week Patient Tobacco Use Status: Never used Tobacco e-Cigarette/Vaping Use: Never Used Second Hand Smoke Exposure: No service: No Current occupational status: employed Cognitive needs: No Hearing needs: No Vision needs: Yes (reading glasses) Questionnaire Thrive Questionnaire Date Thrive assessed: 10/20/22 VERONICA-7 AMB Questionnaire VERONICA-7 Date VERONICA - 7 assessed: 04/29/23 Source: Developed by Drs. Jasvir Salazar, Jory Sanchez, Akira Fairbanks and colleagues, with an educational saloni from [employer]. Physical exam (Primary Care) Tobacco/Smoking Status: Tobacco use Status Tobacco use date assessed 04/29/23 04/29/23 14:32 Patient Tobacco Use Status Never used Tobacco 04/29/23 14:32 e-Cigarette/Vaping Use Never Used 04/29/23 14:32 Thrive Assessment: Date of Thrive Assessment Date Thrive assessed 10/20/22 04/29/23 14:32 Const General: alert; No acute distress Eyes Conjunctivae: conjunctivae normal Resp Auscultation: clear to auscultation bilaterally Cardio Rate: regular rate Rhythm: regular rhythm GI Inspection: Yes normal to inspection Extrem General: Yes normal to inspection and No edema Results AMB Hemoglobin A1c AMB Hemoglobin A1c 7.3 % Last Edit by KEVIN Granado on 08/03/23 16:08 Assessment and Plan Assessment & Plan (1) Type 2 diabetes mellitus with hyperglycemia: Comment: Dr. Streeter Code(s): E11.65 - Type 2 diabetes mellitus with hyperglycemia Qualifiers: Diabetes mellitus intermediate manager insulin use: without fpc use Qualified Code(s): E11.65 - Type 2 diabetes mellitus with hyperglycemia Plan: Decrease the amount of carbohydrate intake, pasta, bread, rice and potatoes are all sugar and that is aside from all the sweet stuff, remember that fruits are good but they are Sweet also. Hemoglobin A1c goal of less than 6.5 on metformin a 1000 mg twice a day semaglutide at 2 mg once a week (2) Nonischemic cardiomyopathy: Comment: 04/27/2023 Low normal LV ejection fraction of 50-55% with mild LVH with grade 1 diastolic dysfunction 2. Normal cardiac valvular Dopplers 3. Normal RV systolic pressure 4. Mildly dilated ascending aorta at 4 cm 5. No pericardial effusion Code(s): I42.8 - Other cardiomyopathies Plan: Patient has the ICD and being monitored by Cardiology. . Recovered nicely after cardiac resynchronization (3) Biventricular ICD (implantable cardioverter-defibrillator) in place: Comment: September 2019 Code(s): Z95.810 - Presence of automatic (implantable) cardiac defibrillator Plan: Patient is under Cardiology surveillance (4) HTN (hypertension): Code(s): I10 - Essential (primary) hypertension Qualifiers: Hypertension type: essential hypertension Qualified Code(s): I10 - Essential (primary) hypertension Plan: Continue with blood pressure medication. Decrease salt intake and exercise on metoprolol 150 mg once a day and lisinopril 40 mg once a day (5) AZEEM (obstructive sleep apnea): Comment: CPAP use Code(s): G47.33 - Obstructive sleep apnea (adult) (pediatric) Plan: Continue to use the CPAP more than 4 hours a night and benefits from this. (6) Morbid obesity: Code(s): E66.01 - Morbid (severe) obesity due to excess calories Plan: Diet and exercise (7) GERD (gastroesophageal reflux disease): Code(s): K21.9 - Gastro-esophageal reflux disease without esophagitis Qualifiers: Esophagitis presence: without esophagitis Qualified Code(s): K21.9 - G kerry-esophageal reflux disease without esophagitis Plan: Avoid the foods that causes that usually spicy foods, tomato products, juices, coffee, soda and foods that your sensitive to. After eating do not lie down, allow 3-4 hours before in lie down. And keep the head of bed above 30 degrees to avoid the acid from going up. (8) Thoracic aortic aneurysm: Comment: 04/27/2023 Low normal LV ejection fraction of 50-55% with mild LVH with grade 1 diastolic dysfunction 2. Normal cardiac valvular Dopplers 3. Normal RV systolic pressure 4. Mildly dilated ascending aorta at 4 cm 5. No pericardial effusion Code(s): I71.20 - Thoracic aortic aneurysm, without rupture, unspecified (9) Fatty liver: Comment: May 2023 Code(s): K76.0 - Fatty (change of) liver, not elsewhere classified Plan: low fat diet Orders: Orders RT home sleep study Today G47.33 - Obstructive sleep apnea (adult) (pediatric) AMB Hemoglobin A1c Today E11.65 - Type 2 diabetes mellitus with hyperglycemia Coding Level of Care Code Est Pt Level 4 (70501) Diagnoses Type 2 diabetes mellitus with hyperglycemia, without long-term current use of insulin E11.65 Diabetes mellitus fpc insulin use: without intermediate manager use Nonischemic cardiomyopathy I42.8 Biventricular ICD (implantable cardioverter-defibrillator) in place Z95.810 Essential hypertension I10 Hypertension type: essential hypertension AZEEM (obstructive sleep apnea) G47.33 Morbid obesity E66.01 Gastroesophageal reflux disease without esophagitis K21.9 Esophagitis presence: without esophagitis Thoracic aortic aneurysm I71.20 Fatty liver K76.0
[2023-08-03 15:58] VITALS: BP 152/78; PULSE 84; O2SAT 97; BMI 40.6
== END 2023-08-03 16:19 | disposition home or self-care (01) ==
PROVIDERS: PCP Internal Medicine; Visit Provider Internal Medicine
DX: E11.65 Type 2 diabetes mellitus with hyperglycemia (principal); I42.8 Other cardiomyopathies; Z95.810 Presence of automatic (implantable) cardiac defibrillator; I10 Essential (primary) hypertension; G47.33 Obstructive sleep apnea (adult) (pediatric); E66.01 Morbid (severe) obesity due to excess calories; K21.9 Gastro-esophageal reflux disease without esophagitis; I71.20 Thoracic aortic aneurysm, without rupture, unspecified; K76.0 Fatty (change of) liver, not elsewhere classified
CPT/HCPCS: 83036; 99214

== ENCOUNTER 2023-08-04 12:19 | Outpatient (REF) | payer OTHER, SELFPAY ==
[2023-08-04 12:39] LABS: MANUAL DIFF FLAG NO
[2023-08-04 13:19] LABS: Alanine Aminotransferase 37 U/L (0-40); Albumin Level 4.4 g/dL (3.5-5.0); Alkaline Phosphatase 61 U/L (39-117); Anion Gap 14 (12-20); Aspartate Amino Transferase 23 U/L (5-37); Bilirubin Total 1.3 mg/dL (0.0-1.0); Blood Urea Nitrogen 15 mg/dL (9-16); Carbon Dioxide 23 mmol/L (22-29); Chloride 108 mmol/L (96-108); Cholesterol 169 mg/dL (<200); Estimated Glomerular Filt Rate > 60; Glucose Random 117 mg/dL (60-115); HDL Cholesterol 37 mg/dL (>40); LDL Cholesterol Calculated 113 mg/dL (<100); Potassium 4.1 mmol/L (3.3-5.1); Sodium 141 mmol/L (135-145); Total Protein 7.5 g/dL (6.5-8.0); Triglycerides 96 mg/dL (<150)
[2023-08-04 13:30] LABS: Basophils Absolute Auto 0.1 X10*3/uL (0.0-0.2); Basophils Percent Auto 1.1 % (0-2); Eosinophils Absolute Auto 0.2 X10*3/uL (0.0-0.4); Eosinophils Percent Auto 3.8 % (0-4); Hematocrit 45.7 % (42.0-52.0); Hemoglobin 15.6 g/dl (14.0-18.0); Imm Gran Abs Auto 0.02 X10*3/uL (0.00-0.03); Imm Gran Pct Auto 0.3 % (0.0-0.4); Lymphocytes Absolute Auto 1.7 X10*3/uL (1.2-4.9); Lymphocytes Percent Auto 27.5 % (20-40); Mean Corpuscular HGB Conc 34.1 g/dl (31.0-36.0); Mean Corpuscular Hemoglobin 31.3 pg (27.0-33.0); Mean Corpuscular Volume 91.6 fL (80.0-98.0); Mean Platelet Volume 10.4 fL (9.4-12.4); Monocytes Absolute Auto 0.7 X10*3/uL (0.1-1.2); Monocytes Percent Auto 10.8 % (2-11); Neutrophils Absolute Auto 3.5 x10*3/uL (2.0-8.3); Neutrophils Percent Auto 56.5 % (45-73); Platelet Count 230 X10*3/uL (160-400); Red Blood Count 4.99 X10*6/uL (4.60-5.80); Red Cell Distribution Width 13.2 % (11.0-16.0); White Blood Count 6.1 X10*3/uL (4.8-10.8)
[2023-08-04 13:44] LABS: Vitamin B12 343 pg/mL (200-900)
[2023-08-04 13:45] LABS: Estimated Average Glucose 148 mg/dL; Hemoglobin A1c % 6.8 % (<6.0)
[2023-08-04 15:15] LABS: Creatinine Urine 117.18 mg/dL
== END 2023-08-04 12:20 | disposition home or self-care (01) ==
LOC: HO.LAB 12:19
PROVIDERS: PCP Internal Medicine; Visit Provider Internal Medicine
DX: E11.65 Type 2 diabetes mellitus with hyperglycemia (principal); E78.00 Pure hypercholesterolemia, unspecified; E66.01 Morbid (severe) obesity due to excess calories
CPT/HCPCS: 36415; 80053; 80061; 82570; 82607; 82746; 83036; 85025

== ENCOUNTER → 2023-08-19 23:59 | Outpatient (BNV) | payer OTHER, SELFPAY ==
--- NOTE | 2023-08-19 08:44 | MHC.OFFVIS ---
Intake Visit Reasons: Remote HF monitoring- [employer] Allergies morphine [Morphine] Allergy (Mild, Verified 08/03/23 15:58) FLUSH, SHORT OF BREATH SEASONAL ALLERGIES Allergy (Unknown, Uncoded 08/03/23 15:58) SHORT OF BREATH PFS Medical History (Updated 08/03/23 @ 16:04 by Ondina France MD) Diabetes type 2, uncontrolled Fatty liver Ventricular tachycardia Peripheral vascular disease Vitamin D deficiency GERD (gastroesophageal reflux disease) Hypercholesterolemia Left bundle branch block AZEEM (obstructive sleep apnea) Morbid obesity HTN (hypertension) Biventricular ICD (implantable cardioverter-defibrillator) in place Nonischemic cardiomyopathy Surgical History History of permanent cardiac pacemaker placement History of cardiac catheterization Family History Father CHF (congestive heart failure) Diabetes Mother No problems noted. Social History Housing: House Alcohol intake: current Alcohol intake frequency: a few times a week Patient Tobacco Use Status: Never used Tobacco e-Cigarette/Vaping Use: Never Used Second Hand Smoke Exposure: No service: No Current occupational status: employed Cognitive needs: No Hearing needs: No Vision needs: Yes (reading glasses) Office Procedures Cardiac Device Check Cardiac Device Check Details: Remote heart failure generated August 18. HF parameters are stable [id number] Cardiac Device Interrogation, cardio physiologic monitor Procedure code (CPT) selection complete Assessment & Plan Assessment & Plan (1) Biventricular ICD (implantable cardioverter-defibrillator) in place: Comment: September 2019 Code(s): Z95.810 - Presence of automatic (implantable) cardiac defibrillator Category: Medical Plan: See above Coding Level of Care Code Procedure Only Diagnoses Biventricular ICD (implantable cardioverter-defibrillator) in place Z95.810 CPT Codes Cardiac Device Check - Cardiac Device 15: [id number] Cardiac Device Interrogation, cardio physiologic monitor ([id number])
== END ==
PROVIDERS: PCP Internal Medicine; Visit Provider Internal Medicine Cardiovascular Disease
DX: Z45.02 Encounter for adjustment and management of automatic implantable cardiac defibrillator (principal)
CPT/HCPCS: 93297

== ENCOUNTER → 2023-09-27 23:59 | Outpatient (BNV) | payer BC, SELFPAY ==
--- NOTE | 2023-10-05 11:54 | MHC.OFFVIS ---
Intake Visit Reasons: Remote HF monitoring- [employer] Allergies morphine [Morphine] Allergy (Mild, Verified 08/03/23 15:58) FLUSH, SHORT OF BREATH SEASONAL ALLERGIES Allergy (Unknown, Uncoded 08/03/23 15:58) SHORT OF BREATH PFS Medical History (Updated 08/03/23 @ 16:04 by Ondina France MD) Diabetes type 2, uncontrolled Fatty liver Ventricular tachycardia Peripheral vascular disease Vitamin D deficiency GERD (gastroesophageal reflux disease) Hypercholesterolemia Left bundle branch block AZEEM (obstructive sleep apnea) Morbid obesity HTN (hypertension) Biventricular ICD (implantable cardioverter-defibrillator) in place Nonischemic cardiomyopathy Surgical History History of permanent cardiac pacemaker placement History of cardiac catheterization Family History Father CHF (congestive heart failure) Diabetes Mother No problems noted. Social History Housing: House Alcohol intake: current Alcohol intake frequency: a few times a week Patient Tobacco Use Status: Never used Tobacco e-Cigarette/Vaping Use: Never Used Second Hand Smoke Exposure: No service: No Current occupational status: employed Cognitive needs: No Hearing needs: No Vision needs: Yes (reading glasses) Office Procedures Cardiac Device Check Cardiac Device Check Details: Remote heart failure report generated 09/27/2023. Heart failure parameters are within normal limits. [id number] Cardiac Device Interrogation, cardio physiologic monitor Procedure code (CPT) selection complete Assessment & Plan Assessment & Plan (1) Biventricular ICD (implantable cardioverter-defibrillator) in place: Comment: September 2019 Code(s): Z95.810 - Presence of automatic (implantable) cardiac defibrillator Category: Medical Plan: See above Coding Level of Care Code Procedure Only Diagnoses Biventricular ICD (implantable cardioverter-defibrillator) in place Z95.810 CPT Codes Cardiac Device Check - Cardiac Device 15: [id number] Cardiac Device Interrogation, cardio physiologic monitor ([id number])
== END ==
PROVIDERS: PCP Internal Medicine; Visit Provider Internal Medicine Cardiovascular Disease
DX: Z45.02 Encounter for adjustment and management of automatic implantable cardiac defibrillator (principal)
CPT/HCPCS: 93297

== ENCOUNTER → 2023-09-28 23:59 | Outpatient (BNV) | payer BC, SELFPAY ==
--- NOTE | 2023-09-30 08:56 | MHC.OFFVIS ---
Intake Visit Reasons: Remote ICD check- [employer] Allergies morphine [Morphine] Allergy (Mild, Verified 08/03/23 15:58) FLUSH, SHORT OF BREATH SEASONAL ALLERGIES Allergy (Unknown, Uncoded 08/03/23 15:58) SHORT OF BREATH COUNT INCLUDES [facility] Medical History (Updated 08/03/23 @ 16:04 by Ondina France MD) Diabetes type 2, uncontrolled Fatty liver Ventricular tachycardia Peripheral vascular disease Vitamin D deficiency GERD (gastroesophageal reflux disease) Hypercholesterolemia Left bundle branch block AZEEM (obstructive sleep apnea) Morbid obesity HTN (hypertension) Biventricular ICD (implantable cardioverter-defibrillator) in place Nonischemic cardiomyopathy Surgical History History of permanent cardiac pacemaker placement History of cardiac catheterization Family History Father CHF (congestive heart failure) Diabetes Mother No problems noted. Social History Housing: House Alcohol intake: current Alcohol intake frequency: a few times a week Patient Tobacco Use Status: Never used Tobacco e-Cigarette/Vaping Use: Never Used Second Hand Smoke Exposure: No service: No Current occupational status: employed Cognitive needs: No Hearing needs: No Vision needs: Yes (reading glasses) Office Procedures Cardiac Device Check Cardiac Device Check Details: Remote ICD report generated 09/29/2023. ICD function is adequate. Bi V pacing 99% of time [id number] Cardiac Interrogation, implant defibrillator w/interim Procedure code (CPT) selection complete Assessment & Plan Assessment & Plan (1) Biventricular ICD (implantable cardioverter-defibrillator) in place: Comment: September 2019 Code(s): Z95.810 - Presence of automatic (implantable) cardiac defibrillator Category: Medical Plan: See above Coding Level of Care Code Procedure Only Diagnoses Biventricular ICD (implantable cardioverter-defibrillator) in place Z95.810 CPT Codes Cardiac Device Check - Cardiac Device 13: [id number] Cardiac Interrogation, implant defibrillator w/interim ([id number])
== END ==
PROVIDERS: PCP Internal Medicine; Visit Provider Internal Medicine Cardiovascular Disease
DX: Z45.02 Encounter for adjustment and management of automatic implantable cardiac defibrillator (principal)
CPT/HCPCS: 93295

== ENCOUNTER → 2023-10-27 23:59 | Outpatient (BNV) | payer BC, SELFPAY ==
--- NOTE | 2023-11-01 13:01 | MHC.OFFVIS ---
Intake Visit Reasons: Remote HF monitoring- [employer] Allergies morphine [Morphine] Allergy (Mild, Verified 08/03/23 15:58) FLUSH, SHORT OF BREATH SEASONAL ALLERGIES Allergy (Unknown, Uncoded 08/03/23 15:58) SHORT OF BREATH PFSH Medical History (Updated 08/03/23 @ 16:04 by Ondina France MD) Diabetes type 2, uncontrolled Fatty liver Ventricular tachycardia Peripheral vascular disease Vitamin D deficiency GERD (gastroesophageal reflux disease) Hypercholesterolemia Left bundle branch block AZEEM (obstructive sleep apnea) Morbid obesity HTN (hypertension) Biventricular ICD (implantable cardioverter-defibrillator) in place Nonischemic cardiomyopathy Surgical History History of permanent cardiac pacemaker placement History of cardiac catheterization Family History Father CHF (congestive heart failure) Diabetes Mother No problems noted. Social History Housing: House Alcohol intake: current Alcohol intake frequency: a few times a week Patient Tobacco Use Status: Never used Tobacco e-Cigarette/Vaping Use: Never Used Second Hand Smoke Exposure: No service: No Current occupational status: employed Cognitive needs: No Hearing needs: No Vision needs: Yes (reading glasses) Office Procedures Cardiac Device Check Cardiac Device Check Details: Remote heart failure report generated 10/27/2023. Heart failure parameters are stable [id number] Cardiac Device Interrogation, cardio physiologic monitor Procedure code (CPT) selection complete Assessment & Plan Assessment & Plan (1) Biventricular ICD (implantable cardioverter-defibrillator) in place: Comment: September 2019 Code(s): Z95.810 - Presence of automatic (implantable) cardiac defibrillator Category: Medical Plan: See above Coding Level of Care Code Procedure Only Diagnoses Biventricular ICD (implantable cardioverter-defibrillator) in place Z95.810 CPT Codes Cardiac Device Check - Cardiac Device 15: [id number] Cardiac Device Interrogation, cardio physiologic monitor ([id number])
== END ==
PROVIDERS: PCP Internal Medicine; Visit Provider Internal Medicine Cardiovascular Disease
DX: Z45.02 Encounter for adjustment and management of automatic implantable cardiac defibrillator (principal)
CPT/HCPCS: 93297

== ENCOUNTER 2023-11-01 13:33 | Outpatient (AMB) | payer BC, SELFPAY ==
--- NOTE | 2023-11-01 13:36 | MHC.OFFVIS ---
Vital Signs 11/01/23 13:37 Height 5 ft 9 in Weight 275 lb 9.245 oz BMI 40.7 BP 184/88 H Blood Pressure Location Lt brachial Position Sitting Pulse 98 Intake Visit Reasons: 6 month follow-up with [facility] Intake Note: 6 month follow-up with [employer] check c/o back pain Sailing Officer Required: No Allergies morphine [Morphine] Allergy (Mild, Verified 08/03/23 15:58) FLUSH, SHORT OF BREATH SEASONAL ALLERGIES Allergy (Unknown, Uncoded 08/03/23 15:58) SHORT OF BREATH Medication List - Last Reconciled 11/01/23 by Papi Peterson MD [CPAP full face mask medium size 13 cm H2O humidified Air ] fexofenadine 180 mg PO DAILY PRN fluticasone propionate 50 mcg/actuation (Flonase Allergy Relief) 2 sprays intranasal DAILY furosemide 40 mg PO DAILY PRN lisinopril 40 mg PO DAILY lovastatin 40 mg PO DAILY metformin 1,000 mg PO BID metoprolol succinate ER 150 mg (1.5 x 100 mg) PO DAILY 90 days semaglutide 2 mg subcut QWEEK sildenafil 50 mg PO DAILY PRN HPI Comments Details: Mark comes for follow-up. Over the last week he has been having significant back issues and pain in the left lower lumbar area. He said this may be due to over working either by golfing or working on his house. He said he has been taking Advil around the clock. He has not been taking metoprolol and lisinopril for fear of having increased side effects. He has been noticing increasing palpitations/switch is in his chest. No other heart failure symptoms. No lightheadedness, syncope, ICD discharge. Blood pressure today's exam is elevated along with elevated heart rate [facility] Medical History Diabetes type 2, uncontrolled Fatty liver Ventricular tachycardia Peripheral vascular disease Vitamin D deficiency GERD (gastroesophageal reflux disease) Hypercholesterolemia Left bundle branch block AZEEM (obstructive sleep apnea) Morbid obesity HTN (hypertension) Biventricular ICD (implantable cardioverter-defibrillator) in place Nonischemic cardiomyopathy Surgical History History of permanent cardiac pacemaker placement History of cardiac catheterization Family History Father CHF (congestive heart failure) Diabetes Mother No problems noted. Social History Housing: House Alcohol intake: current Alcohol intake frequency: a few times a week Patient Tobacco Use Status: Never used Tobacco e-Cigarette/Vaping Use: Never Used Second Hand Smoke Exposure: No service: No Current occupational status: employed Cognitive needs: No Hearing needs: No Vision needs: Yes (reading glasses) Review of Systems Const Denies chills, Denies fatigue, Denies fever(s), Denies frequent falls, Denies weakness, Denies weight gain and Denies weight loss ENT Denies dizziness Card Denies chest pain, Denies leg edema, Denies lightheadedness, Denies palpitations, Denies dyspnea, Denies dyspnea on exertion, Denies orthopnea and Denies other (loss of consciousness) Resp Denies cough, Denies dyspnea and Denies dyspnea on exertion GI Denies hematochezia and Denies change in stool character Musc Denies abnormal gait, Denies muscle weakness, Denies numbness, Denies radiating pain into limb and Denies tingling Neuro Denies abnormal gait, Denies dizziness, Denies frequent falls, Denies numbness, Denies tingling and Denies weakness Endo Denies fatigue and Denies palpitations Physical Exam Vital Signs: Last Vital Signs Pulse 98 11/01/23 13:37 BP 184/88 H 11/01/23 13:37 BMI result Body Mass Index 40.7 Const General: cooperative, comfortable, no acute distress, alert, awake and Physically active Nutritional Appearance: obese Orientation/consciousness: patient oriented x3 Limitations: no limitations Neck Neck: Yes trachea midline, Yes supple and Yes no JVD Resp Effort & Inspection: normal respiratory effort Auscultation: clear to auscultation bilaterally Cardio Jugular venous distension: no JVD Palpation: normal PMI Rate: regular rate Rhythm: regular rhythm Heart sounds: S1 normal heart sound present, S2 normal heart sound present and Other heart sounds present (S4 present) GI Inspection: Yes obesity Auscultation: normal bowel sounds Skin General skin exam: no rashes or lesions noted Neuro General: patient oriented x3 and no focal motor deficits Extrem General: Yes no clubbing, cyanosis or edema Psych Appearance: grossly normal Office Procedures Cardiac Device Check Cardiac Device Check Details: Biventricular Biotronik ICD in place. Programmed in DDDR at 60 beats per minute. FUEL DISTRIBUTION SYSTEM OPERATOR 100% time. Increased burden of PVCs noted. Minimal atrial pacing noted. Atrial and biventricular pacing thresholds adequate. Atrial ventricular sensing is adequate. Pacing and shock lead impedance is stable. Battery life is adequate. 96452-YR Cardiac Device Check, multi lead implantable defibrillator Procedure code (CPT) selection complete EKG Details: EKG shows atrially sensed, ventricular paced rhythm with LV pacing [id number], Complete Assessment & Plan Assessment & Plan (1) Nonischemic cardiomyopathy: Comment: 04/27/2023 Low normal LV ejection fraction of 50-55% with mild LVH with grade 1 diastolic dysfunction 2. Normal cardiac valvular Dopplers 3. Normal RV systolic pressure 4. Mildly dilated ascending aorta at 4 cm 5. No pericardial effusion Code(s): I42.8 - Other cardiomyopathies Category: Medical Plan: Nonischemic cardiomyopathy with improved LV ejection fraction by echocardiogram since FUEL DISTRIBUTION SYSTEM OPERATOR and current neurohormonal modulation. Importance of continued medical therapy and control blood pressure was discussed. No signs or symptoms of heart failure. Will continue monitor clinically. No need for diuretic therapy. Follow-up echocardiogram in 6 months time. Currently on diuretic therapy for leg edema. No signs or symptoms of heart failure and class 1 symptoms. (2) Biventricular ICD (implantable cardioverter-defibrillator) in place: Comment: September 2019 Code(s): Z95.810 - Presence of automatic (implantable) cardiac defibrillator Category: Medical Plan: Biventricular ICD in place for cardiomyopathy left bundle-branch block with improvement in LV ejection fraction will follow the device remotely over the telephone and follow up in the clinic in 6 months time. Has increased burden of PVCs most likely recently not taking his metoprolol therapy and also increased pain. Avoidance of alcohol use was discussed. (3) Thoracic aortic aneurysm: Comment: 04/27/2023 Low normal LV ejection fraction of 50-55% with mild LVH with grade 1 diastolic dysfunction 2. Normal cardiac valvular Dopplers 3. Normal RV systolic pressure 4. Mildly dilated ascending aorta at 4 cm 5. No pericardial effusion Code(s): I71.20 - Thoracic aortic aneurysm, without rupture, unspecified Category: Medical Plan: Thoracic aortic aneurysm which is mild. Will follow-up echocardiogram in 6 months time. Continue aggressive blood pressure control. Importance of this was discussed. No need for surgical intervention at this point time. Advised to avoid sudden strenuous isometric exercise. (4) HTN (hypertension): Code(s): I10 - Essential (primary) hypertension Category: Medical Qualifiers: Hypertension type: essential hypertension Qualified Code(s): I10 - Essential (primary) hypertension Plan: Hypertension which is currently not well optimized probably not taking his medication put lisinopril metoprolol as well as due to pain and also use of Advil. Advised to improve compliance with medication. He understands agrees. Continue CPAP therapy. Continue participate in weight loss program. Restriction use of Advil was discussed. Reduction use of alcohol was discussed. Continue participate in weight loss program. Will follow up in the clinic in 6 months time, sooner p.r.n.. Thank you for allowing me to partake in his care Orders: Orders CA echo transthoracic complete 6 Months I42.8 - Other cardiomyopathies Coding Level of Care Code Est Pt Level 4 (90836) Diagnoses Nonischemic cardiomyopathy I42.8 Biventricular ICD (implantable cardioverter-defibrillator) in place Z95.810 Thoracic aortic aneurysm I71.20 Essential hypertension I10 Hypertension type: essential hypertension CPT Codes Cardiac Device Check - Cardiac Device 6: [id number] Cardiac Device Check, multi lead implantable defibrillator ([id number]) EKG - CPT: 45332-[id number], Complete ([id number])
[2023-11-01 13:37] VITALS: BP 184/88; PULSE 98; BMI 40.7
== END 2023-11-01 14:35 | disposition home or self-care (01) ==
PROVIDERS: PCP Internal Medicine; Visit Provider Internal Medicine Cardiovascular Disease
DX: I42.8 Other cardiomyopathies (principal); Z95.810 Presence of automatic (implantable) cardiac defibrillator; I71.20 Thoracic aortic aneurysm, without rupture, unspecified; I10 Essential (primary) hypertension
CPT/HCPCS: 93010; 93284; 99214

== ENCOUNTER → 2023-11-01 13:33 | Outpatient (BNVA) | payer BC, SELFPAY | PROVIDERS: PCP Internal Medicine; Visit Provider Internal Medicine Cardiovascular Disease | DX: I42.8 Other cardiomyopathies (principal); I71.20 Thoracic aortic aneurysm, without rupture, unspecified; I10 Essential (primary) hypertension; Z95.810 Presence of automatic (implantable) cardiac defibrillator | CPT/HCPCS: 93005 ==

== ENCOUNTER 2023-11-03 09:59 | Outpatient (AMB) | payer BC, SELFPAY ==
[2023-11-03 10:02] VITALS: BP 134/72; PULSE 94; O2SAT 95; BMI 40.3
--- NOTE | 2023-11-03 10:02 | MHC.PC.OV ---
Vital Signs 11/03/23 10:02 Height 5 ft 9 in Weight 273 lb BMI 40.3 BP 134/72 Blood Pressure Location Lt brachial Position Sitting Pulse 94 Pulse Source Pulse Oximeter Pulse Oximetry (%) 95 Oxygen Delivery Method Room Air Intake Visit Reasons: BackPain Intake Note: pt c/o of left sided lower back pain X1 week Brokerage Clerk Required: No Allergies morphine [Morphine] Allergy (Mild, Verified 11/03/23 10:03) FLUSH, SHORT OF BREATH SEASONAL ALLERGIES Allergy (Unknown, Uncoded 11/03/23 10:03) SHORT OF BREATH Tobacco use date assessed: 08/03/23 Dental Screening Dental Screen Date: 04/29/23 HPI BackPain HPI Details 57-year-old morbidly obese male with diabetes mellitus nonischemic cardiomyopathy with an ICD hypertension obstructive sleep apnea GERD coming in for follow-up. Last seen in July 2023 patient's colonoscopy is up-to-date November 2016. 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 2 weeks ago L lower lumbar pain was golfing, no fall or trauma. no bruises or fall [facility] Medical History (Updated 11/03/23 @ 10:24 by Ondina France MD) Back pain of lumbar region with sciatica Pain in right femur Hip pain, right Balanitis Change in bowel function Diarrhea Morbid obesity Diabetes type 2, uncontrolled Fatty liver Ventricular tachycardia Peripheral vascular disease Vitamin D deficiency GERD (gastroesophageal reflux disease) Hypercholesterolemia Left bundle branch block AZEEM (obstructive sleep apnea) HTN (hypertension) Biventricular ICD (implantable cardioverter-defibrillator) in place Nonischemic cardiomyopathy Surgical History History of permanent cardiac pacemaker placement History of cardiac catheterization Family History Father CHF (congestive heart failure) Diabetes Mother No problems noted. Social History Housing: House Alcohol intake: current Alcohol intake frequency: a few times a week Patient Tobacco Use Status: Never used Tobacco e-Cigarette/Vaping Use: Never Used Second Hand Smoke Exposure: No service: No Current occupational status: employed Cognitive needs: No Hearing needs: No Vision needs: Yes (reading glasses) Questionnaire Thrive Questionnaire Date Thrive assessed: 10/20/22 AUDIT C Alcohol Use Questionnaire (AUDIT-C) 1. How often do you have a drink containing alcohol?: 2-3 times a week 2. How many drinks containing alcohol do you have on a typical day when you are drinking?: 1 or 2 3. How often do you have six or more drinks on one occasion?: Never Total Score: 3 Score Reviewed/Action Taken: Yes VERONICA-7 AMB Questionnaire VERONICA-7 Date VERONICA - 7 assessed: 04/29/23 Source: Developed by Drs. Jasvir Salazar, Jory Sanchez, Akira Fairbanks and colleagues, with an educational saloni from [employer]. Physical exam (Primary Care) Vital Signs: Last Vital Signs Pulse 94 11/03/23 10:02 BP 134/72 11/03/23 10:02 Pulse Ox 95 11/03/23 10:02 Oxygen Delivery Method Room Air 11/03/23 10:02 BMI result Body Mass Index 40.3 Tobacco/Smoking Status: Tobacco use Status Tobacco use date assessed 08/03/23 11/03/23 10:03 Patient Tobacco Use Status Never used Tobacco 11/03/23 10:03 e-Cigarette/Vaping Use Never Used 11/03/23 10:03 Thrive Assessment: Date of Thrive Assessment Date Thrive assessed 10/20/22 11/03/23 10:03 Const General: alert; No acute distress Eyes Conjunctivae: conjunctivae normal Resp Auscultation: clear to auscultation bilaterally Cardio Rate: regular rate Rhythm: regular rhythm GI Inspection: Yes normal to inspection Skin Other: left lower back pain Extrem General: Yes normal to inspection and No edema Assessment and Plan Assessment & Plan (1) Thoracic aortic aneurysm: Comment: 04/27/2023 Low normal LV ejection fraction of 50-55% with mild LVH with grade 1 diastolic dysfunction 2. Normal cardiac valvular Dopplers 3. Normal RV systolic pressure 4. Mildly dilated ascending aorta at 4 cm 5. No pericardial effusion Code(s): I71.20 - Thoracic aortic aneurysm, without rupture, unspecified Plan: Continue to monitor. Advised retesting of echocardiogram in 6 months. Control the blood pressure control cholesterol controlled diabetes mellitus and decrease weight. (2) Morbid (severe) obesity due to excess calories: Code(s): E66.01 - Morbid (severe) obesity due to excess calories Plan: Diet and exercise (3) Nonischemic cardiomyopathy: Comment: 04/27/2023 Low normal LV ejection fraction of 50-55% with mild LVH with grade 1 diastolic dysfunction 2. Normal cardiac valvular Dopplers 3. Normal RV systolic pressure 4. Mildly dilated ascending aorta at 4 cm 5. No pericardial effusion Code(s): I42.8 - Other cardiomyopathies Plan: Improvement in the left ventricular ejection fraction after AIRCRAFT INSTRUMENT ENGINEER (4) Biventricular ICD (implantable cardioverter-defibrillator) in place: Comment: September 2019 Code(s): Z95.810 - Presence of automatic (implantable) cardiac defibrillator Plan: Patient continues to follow-up with cardiology (5) HTN (hypertension): Code(s): I10 - Essential (primary) hypertension Qualifiers: Hypertension type: essential hypertension Qualified Code(s): I10 - Essential (primary) hypertension Plan: Continue with blood pressure medication. Decrease salt intake and exercise on lisinopril 40 mg once a day metoprolol 150 mg once a day (6) AZEEM (obstructive sleep apnea): Comment: CPAP use Code(s): G47.33 - Obstructive sleep apnea (adult) (pediatric) Plan: Continue to use the CPAP more than 4 hours a night and benefits from this (7) Type 2 diabetes mellitus with hyperglycemia: Comment: Dr. Streeter Code(s): E11.65 - Type 2 diabetes mellitus with hyperglycemia Qualifiers: Diabetes mellitus senior care insulin use: without senior care use Qualified Code(s): E11.65 - Type 2 diabetes mellitus with hyperglycemia Plan: Decrease the amount of carbohydrate intake, pasta, bread, rice and potatoes are all sugar and that is aside from all the sweet stuff, remember that fruits are good but they are Sweet also. Hemoglobin A1c goal of less than 6.5 on metformin a 1000 mg twice a day and semaglutide (8) Hypercholesterolemia: Code(s): E78.00 - Pure hypercholesterolemia, unspecified Plan: Avoid fried foods, chicken skin, eggs, butter margarine, pastries and meat. Be it pork or beef they have a lot of cholesterol LDL goal of less than 70 on lovastatin 40 mg once a day (9) GERD (gastroesophageal reflux disease): Code(s): K21.9 - Gastro-esophageal reflux disease without esophagitis Qualifiers: Esophagitis presence: without esophagitis Qualified Code(s): K21.9 - Gastro-esophageal reflux disease without esophagitis Plan: Avoid the foods that causes that usually spicy foods, tomato products, juices, coffee, soda and foods that your sensitive to. After eating do not lie down, allow 3-4 hours before in lie down. And keep the head of bed above 30 degrees to avoid the acid from going up. (10) Pain of back and left lower extremity: Code(s): M54.9 - Dorsalgia, unspecified; M79.605 - Pain in left leg (11) Back pain of lumbar region with sciatica: Code(s): M54.40 - Lumbago with sciatica, unspecified side Orders: Orders B Type Natriuretic Peptide Today M54.40 - Lumbago with sciatica, unspecified side Comprehensive Met. Panel Today M54.40 - Lumbago with sciatica, unspecified side Free T4 (Free Thyroxine) Today M54.40 - Lumbago with sciatica, unspecified side Thyroid Stimulating Hormone Today M54.40 - Lumbago with sciatica, unspecified side Creatinine Urine Today E11.65 - Type 2 diabetes mellitus with hyperglycemia, M54.40 - Lumbago with sciatica, unspecified side Microalbumin, Random (w Creat) Today E11.65 - Type 2 diabetes mellitus with hyperglycemia, M54.40 - Lumbago with sciatica, unspecified side XR lumbar spine 2-3V Today M54.40 - Lumbago with sciatica, unspecified side Complete Blood Count Auto Diff Today M54.40 - Lumbago with sciatica, unspecified side Lipid Panel Today E78.00 - Pure hypercholesterolemia, unspecified, M54.40 - Lumbago with sciatica, unspecified side Vitamin B12 and Folate Today M54.40 - Lumbago with sciatica, unspecified side Prostate Specific Antigen Scr Today M54.40 - Lumbago with sciatica, unspecified side Hemoglobin A1c Today M54.40 - Lumbago with sciatica, unspecified side Medications: New cyclobenzaprine 10 mg PO TID PRN 30 tabs 0RF muscle spasm M54.40 - Lumbago with sciatica, unspecified side Coding Level of Care Code Est Pt Level 4 (51405) Diagnoses Thoracic aortic aneurysm I71.20 Morbid (severe) obesity due to excess calories E66.01 Nonischemic cardiomyopathy I42.8 Biventricular ICD (implantable cardioverter-defibrillator) in place Z95.810 Essential hypertension I10 Hypertension type: essential hypertension AZEEM (obstructive sleep apnea) G47.33 Type 2 diabetes mellitus with hyperglycemia, without long-term current use of insulin E11.65 Diabetes mellitus senior care insulin use: without intermodal dispatcher use Hypercholesterolemia E78.00 Gastroesophageal reflux disease without esophagitis K21.9 Esophagitis presence: without esophagitis Pain of back and left lower extremity M54.9; M79.605 Back pain of lumbar region with sciatica M54.40
== END 2023-11-03 11:48 | disposition home or self-care (01) ==
PROVIDERS: PCP Internal Medicine; Visit Provider Internal Medicine
DX: I71.20 Thoracic aortic aneurysm, without rupture, unspecified (principal); E66.01 Morbid (severe) obesity due to excess calories; I42.8 Other cardiomyopathies; Z68.41 Body mass index [BMI] 40.0-44.9, adult; E11.65 Type 2 diabetes mellitus with hyperglycemia; Z95.810 Presence of automatic (implantable) cardiac defibrillator; I10 Essential (primary) hypertension; G47.33 Obstructive sleep apnea (adult) (pediatric); E78.00 Pure hypercholesterolemia, unspecified; K21.9 Gastro-esophageal reflux disease without esophagitis; M54.9 Dorsalgia, unspecified; M79.605 Pain in left leg
CPT/HCPCS: 99214

== ENCOUNTER → 2023-11-28 23:59 | Outpatient (BNV) | payer BC, SELFPAY ==
--- NOTE | 2023-12-01 13:19 | MHC.OFFVIS ---
Intake Visit Reasons: Remote HF monitoring- [employer] Allergies morphine [Morphine] Allergy (Mild, Verified 11/03/23 10:03) FLUSH, SHORT OF BREATH SEASONAL ALLERGIES Allergy (Unknown, Uncoded 11/03/23 10:03) SHORT OF BREATH PFS Medical History (Updated 11/03/23 @ 10:24 by Ondina France MD) Back pain of lumbar region with sciatica Pain in right femur Hip pain, right Balanitis Change in bowel function Diarrhea Morbid obesity Diabetes type 2, uncontrolled Fatty liver Ventricular tachycardia Peripheral vascular disease Vitamin D deficiency GERD (gastroesophageal reflux disease) Hypercholesterolemia Left bundle branch block AZEEM (obstructive sleep apnea) HTN (hypertension) Biventricular ICD (implantable cardioverter-defibrillator) in place Nonischemic cardiomyopathy Surgical History History of permanent cardiac pacemaker placement History of cardiac catheterization Family History Father CHF (congestive heart failure) Diabetes Mother No problems noted. Social History Housing: House Alcohol intake: current Alcohol intake frequency: a few times a week Patient Tobacco Use Status: Never used Tobacco e-Cigarette/Vaping Use: Never Used Second Hand Smoke Exposure: No service: No Current occupational status: employed Cognitive needs: No Hearing needs: No Vision needs: Yes (reading glasses) Office Procedures Cardiac Device Check Cardiac Device Check Details: Remote heart failure report generated 11/24/2023. I was requested to read this study today. Heart failure parameters are stable [id number] Cardiac Device Interrogation, cardio physiologic monitor Procedure code (CPT) selection complete Assessment & Plan Assessment & Plan (1) Biventricular ICD (implantable cardioverter-defibrillator) in place: Comment: September 2019 Code(s): Z95.810 - Presence of automatic (implantable) cardiac defibrillator Category: Medical Plan: see above Coding Level of Care Code Procedure Only Diagnoses Biventricular ICD (implantable cardioverter-defibrillator) in place Z95.810 CPT Codes Cardiac Device Check - Cardiac Device 15: [id number] Cardiac Device Interrogation, cardio physiologic monitor ([id number])
== END ==
PROVIDERS: PCP Internal Medicine; Visit Provider Internal Medicine Cardiovascular Disease
DX: Z45.02 Encounter for adjustment and management of automatic implantable cardiac defibrillator (principal)
CPT/HCPCS: 93297

== ENCOUNTER 2023-12-16 10:42 | Outpatient (REF) | payer BC, SELFPAY ==
[2023-12-16 11:09] LABS: MANUAL DIFF FLAG NO
[2023-12-16 11:44] LABS: Basophils Percent Auto 0.6 % (0-2); Eosinophils Absolute Auto 0.3 X10*3/uL (0.0-0.4); Eosinophils Percent Auto 4.2 % (0-4); Hematocrit 45.7 % (42.0-52.0); Hemoglobin 15.6 g/dl (14.0-18.0); Imm Gran Abs Auto 0.03 X10*3/uL (0.00-0.03); Imm Gran Pct Auto 0.5 % (0.0-0.4); Lymphocytes Absolute Auto 1.7 X10*3/uL (1.2-4.9); Lymphocytes Percent Auto 26.8 % (20-40); Mean Corpuscular HGB Conc 34.1 g/dl (31.0-36.0); Mean Corpuscular Hemoglobin 31.3 pg (27.0-33.0); Mean Corpuscular Volume 91.8 fL (80.0-98.0); Mean Platelet Volume 10.1 fL (9.4-12.4); Monocytes Absolute Auto 0.7 X10*3/uL (0.1-1.2); Monocytes Percent Auto 10.5 % (2-11); Neutrophils Absolute Auto 3.6 x10*3/uL (2.0-8.3); Neutrophils Percent Auto 57.4 % (45-73); Platelet Count 218 X10*3/uL (160-400); Red Blood Count 4.98 X10*6/uL (4.60-5.80); Red Cell Distribution Width 13.2 % (11.0-16.0); White Blood Count 6.3 X10*3/uL (4.8-10.8)
[2023-12-16 11:59] LABS: Estimated Average Glucose 212 mg/dL; Hemoglobin A1C 282.5733 umol/L; Total Hemoglobin (HGBA1C) 3758.7085 umol/L
[2023-12-16 12:15] LABS: B Type Natriuretic Peptide 13 pg/mL (<100)
[2023-12-16 12:19] LABS: Alanine Aminotransferase 52 U/L (0-40); Albumin Level 4.1 g/dL (3.5-5.0); Alkaline Phosphatase 65 U/L (39-117); Anion Gap 13 (12-20); Aspartate Amino Transferase 24 U/L (5-37); Bilirubin Total 1.8 mg/dL (0.0-1.0); Blood Urea Nitrogen 14 mg/dL (9-16); Calcium 9.9 mg/dL (8.4-10.2); Carbon Dioxide 25 mmol/L (22-29); Chloride 104 mmol/L (96-108); Cholesterol 199 mg/dL (<200); Estimated Glomerular Filt Rate > 60; Glucose Random 221 mg/dL (60-115); HDL Cholesterol 33 mg/dL (>40); LDL Cholesterol Calculated 127 mg/dL (<100); Sodium 138 mmol/L (135-145); Total Protein 7.2 g/dL (6.5-8.0); Triglycerides 195 mg/dL (<150)
[2023-12-16 12:29] LABS: Creatinine Urine 85.71 mg/dL
[2023-12-16 12:36] LABS: Free T4 (Free Thyroxine) 0.98 ng/dL (0.71-1.85); Thyroid Stimulating Hormone 1.19 uIU/mL (0.32-4.0)
[2023-12-16 13:05] LABS: Folate 13.4 ng/mL (> or = 4.0); Prostate Specific Antigen Scr 0.74 ng/mL (<0.05-4.0); Vitamin B12 423 pg/mL (200-900)
== END 2023-12-16 10:43 | disposition home or self-care (01) ==
LOC: HO.LAB 10:42
PROVIDERS: PCP Internal Medicine; Visit Provider Internal Medicine
DX: M54.40 Lumbago with sciatica, unspecified side (principal); E11.65 Type 2 diabetes mellitus with hyperglycemia; E78.00 Pure hypercholesterolemia, unspecified; J02.9 Acute pharyngitis, unspecified; Z23 Encounter for immunization; I71.20 Thoracic aortic aneurysm, without rupture, unspecified; E66.01 Morbid (severe) obesity due to excess calories; I42.8 Other cardiomyopathies; Z95.810 Presence of automatic (implantable) cardiac defibrillator; I10 Essential (primary) hypertension; G47.33 Obstructive sleep apnea (adult) (pediatric); K21.9 Gastro-esophageal reflux disease without esophagitis; Z12.5 Encounter for screening for malignant neoplasm of prostate
CPT/HCPCS: 36415; 80053; 80061; 82043; 82570; 82607; 82746; 83036; 83880; 84153; 84439; 84443; 85025; 87880; 90471; 90656

== ENCOUNTER 2023-12-16 11:36 | Outpatient (AMB) | payer BC, SELFPAY ==
[2023-12-16 11:38] VITALS: BP 142/78; PULSE 89; O2SAT 96; BMI 40.6
--- NOTE | 2023-12-16 11:38 | A.OFFPC_ITS ---
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 Patient has a history of thoracic aortic aneurysm and was advised echocardiogram. Review of the notes has been following up with Cardiology for device check. PAtient has the supply of ozempic intermittently due top supply issues. complains of sore throat with pain on swallowing - 12 days , no fevers, mild , no sob, L. side of face pain. Patient was advised that if the sore throat persist to call. Patient has Jardiance but has not been taking it thinking that he may be able to control his diabetes but with the A1c today at 9.0 advised to take it. [facility] Medical History (Updated 12/16/23 @ 11:47 by Ondina France MD) Obesity Back pain of lumbar region with sciatica Pain in right femur Hip pain, right Balanitis Change in bowel function Diarrhea Morbid obesity Diabetes type 2, uncontrolled Fatty liver Ventricular tachycardia Peripheral vascular disease Vitamin D deficiency GERD (gastroesophageal reflux disease) Hypercholesterolemia Left bundle branch block AZEEM (obstructive sleep apnea) HTN (hypertension) Biventricular ICD (implantable cardioverter-defibrillator) in place Nonischemic cardiomyopathy Surgical History History of permanent cardiac pacemaker placement History of cardiac catheterization Family History Father CHF (congestive heart failure) Diabetes Mother No problems noted. Social History Housing: House Alcohol intake: current Alcohol intake frequency: a few times a week Patient Tobacco Use Status: Never used Tobacco e-Cigarette/Vaping Use: Never Used Second Hand Smoke Exposure: No service: No Current occupational status: employed Cognitive needs: No Hearing needs: No Vision needs: Yes (reading glasses) Questionnaire Thrive Questionnaire Date Thrive assessed: 10/20/22 AUDIT C Alcohol Use Questionnaire (AUDIT-C) 1. How often do you have a drink containing alcohol?: 2-3 times a week 2. How many drinks containing alcohol do you have on a typical day when you are drinking?: 1 or 2 3. How often do you have six or more drinks on one occasion?: Never Total Score: 3 Score Reviewed/Action Taken: Yes VERONICA-7 AMB Questionnaire VERONICA-7 Date VERONICA - 7 assessed: 04/29/23 Source: Developed by Drs. Jasvir Salazar, Jory Sanchez, Akira Fairbanks and colleagues, with an educational saloni from [employer]. Physical exam (Primary Care) Vital Signs: Last Vital Signs Pulse 89 12/16/23 11:38 BP 120/80 12/16/23 12:02 Pulse Ox 96 12/16/23 11:38 Oxygen Delivery Method Room Air 12/16/23 11:38 BMI result Body Mass Index 40.6 Tobacco/Smoking Status: Tobacco use Status Tobacco use date assessed 08/03/23 12/16/23 11:40 Patient Tobacco Use Status Never used Tobacco 12/16/23 11:40 e-Cigarette/Vaping Use Never Used 12/16/23 11:40 Thrive Assessment: Date of Thrive Assessment Date Thrive assessed 10/20/22 12/16/23 11:40 Const General: alert; No acute distress Eyes Conjunctivae: conjunctivae normal Resp Auscultation: clear to auscultation bilaterally Cardio Rate: regular rate Rhythm: regular rhythm GI Inspection: Yes normal to inspection Extrem General: Yes normal to inspection and No edema Results AMB Hemoglobin A1c AMB Hemoglobin A1c 9.0 % Last Edit by KEVIN Palacios on 12/16/23 11:51 AMB Rapid Strep AMB Rapid Strep Negative Last Edit by KEVIN Palacios on 12/16/23 12:01 Results Reviewed Results Reviewed: Laboratory Last Values Hgb A1c (Clinic) 9.0 % (4.0-6.0) H 12/16/23 10:54 Strep Scn Rapid Clinic Negative 12/16/23 11:51 Coding Level of Care Code Est Pt Level 4 (43461) Diagnoses Thoracic aortic aneurysm I71.20 Morbid (severe) obesity due to excess calories E66.01 Type 2 diabetes mellitus with hyperglycemia, without long-term current use of insulin E11.65 Diabetes mellitus manager intermediate insulin use: without manager intermediate use Nonischemic cardiomyopathy I42.8 Biventricular ICD (implantable cardioverter-defibrillator) in place Z95.810 Essential hypertension I10 Hypertension type: essential hypertension AZEEM (obstructive sleep apnea) G47.33 Hypercholesterolemia E78.00 Gastroesophageal reflux disease without esophagitis K21.9 Esophagitis presence: without esophagitis Sore throat J02.9 Assessment & Plan Assessment & Plan (1) Thoracic aortic aneurysm: Comment: 04/27/2023 Low normal LV ejection fraction of 50-55% with mild LVH with grade 1 diastolic dysfunction 2. Normal cardiac valvular Dopplers 3. Normal RV systolic pressure 4. Mildly dilated ascending aorta at 4 cm 5. No pericardial effusion Code(s): I71.20 - Thoracic aortic aneurysm, without rupture, unspecified Category: Medical Plan: Due for repeat echo early next year. (2) Morbid (severe) obesity due to excess calories: Code(s): E66.01 - Morbid (severe) obesity due to excess calories Category: Medical Plan: Diet and exercise (3) Type 2 diabetes mellitus with hyperglycemia: Comment: Dr. Streeter Code(s): E11.65 - Type 2 diabetes mellitus with hyperglycemia Category: Medical Qualifiers: Diabetes mellitus fpc insulin use: without fpc use Qualified Code(s): E11.65 - Type 2 diabetes mellitus with hyperglycemia Plan: Decrease the amount of carbohydrate intake, pasta, bread, rice and potatoes are all sugar and that is aside from all the sweet stuff, remember that fruits are good but they are Sweet also. Hemoglobin A1c goal of less than 6.5. Patient is just on metformin a 1000 mg twice a day patient has been prescribed semaglutide at 2 mg once a week. Sarahtent has Jardiance but has not been taking it there is a question of diarrhea from this but patient wants to take it this time discussed that the hemoglobin A1c is 9.0 (4) Nonischemic cardiomyopathy: Comment: 04/27/2023 Low normal LV ejection fraction of 50-55% with mild LVH with grade 1 diastolic dysfunction 2. Normal cardiac valvular Dopplers 3. Normal RV systolic pressure 4. Mildly dilated ascending aorta at 4 cm 5. No pericardial effusion Code(s): I42.8 - Other cardiomyopathies Category: Medical Plan: Continue with lisinopril 40 mg once a day metoprolol 150 mg once a day (5) Biventricular ICD (implantable cardioverter-defibrillator) in place: Comment: September 2019 Code(s): Z95.810 - Presence of automatic (implantable) cardiac defibrillator Category: Medical Plan: Patient continues to follow-up with cardiology for device check. (6) HTN (hypertension): Code(s): I10 - Essential (primary) hypertension Category: Medical Qualifiers: Hypertension type: essential hypertension Qualified Code(s): I10 - Essential (primary) hypertension Plan: Continue with blood pressure medication. Decrease salt intake and exercise patient is taking metoprolol 150 mg once a day lisinopril 40 mg once a day (7) AZEEM (obstructive sleep apnea): Comment: CPAP use Code(s): G47.33 - Obstructive sleep apnea (adult) (pediatric) Category: Medical Plan: continue with the CPAP > 4 hours and benefits from this (8) Hypercholesterolemia: Code(s): E78.00 - Pure hypercholesterolemia, unspecified Category: Medical Plan: Avoid fried foods, chicken skin, eggs, butter margarine, pastries and meat. Be it pork or beef they have a lot of cholesterol blood work is pending LDL goal of less than 100 and triglyceride of less than 150 patient on lovastatin 40 mg once a day (9) GERD (gastroesophageal reflux disease): Code(s): K21.9 - Gastro-esophageal reflux disease without esophagitis Category: Medical Qualifiers: Esophagitis presence: without esophagitis Qualified Code(s): K21.9 - Gastro-esophageal reflux disease without esophagitis Plan: Avoid the foods that causes that usually spicy foods, tomato products, juices, coffee, soda and foods that your sensitive to. After eating do not lie down, allow 3-4 hours before in lie down. And keep the head of bed above 30 degrees to avoid the acid from going up. (10) Sore throat: Code(s): J02.9 - Acute pharyngitis, unspecified Category: Medical Plan: Will do a throat swab negative for strep. discussed that exam is negative cepacol for pain Orders: Orders AMB Hemoglobin A1c Today E11.65 - Type 2 diabetes mellitus with hyperglycemia AMB Rapid Strep Screen Today J02.9 - Acute pharyngitis, unspecified Medications: New semaglutide for 4 doses 2 mg (0.75 mL) subcut QWEEK 9 mL 3RF E11.65 - Type 2 diabetes mellitus with hyperglycemia amoxicillin 875 mg PO BID 14 tabs 0RF J02.9 - Acute pharyngitis, unspecified empagliflozin (Jardiance) 10 mg PO DAILY 30 tabs 0RF J02.9 - Acute pharyngitis, unspecified
[2023-12-16 12:02] VITALS: BP 120/80
== END 2023-12-16 12:13 | disposition home or self-care (01) ==
PROVIDERS: PCP Internal Medicine; Visit Provider Internal Medicine
DX: E11.65 Type 2 diabetes mellitus with hyperglycemia (principal); I71.20 Thoracic aortic aneurysm, without rupture, unspecified; E66.813 Obesity, class 3; Z68.41 Body mass index [BMI] 40.0-44.9, adult; I42.8 Other cardiomyopathies; Z95.810 Presence of automatic (implantable) cardiac defibrillator; I10 Essential (primary) hypertension; G47.33 Obstructive sleep apnea (adult) (pediatric); J02.9 Acute pharyngitis, unspecified; E78.00 Pure hypercholesterolemia, unspecified; K21.9 Gastro-esophageal reflux disease without esophagitis

== ENCOUNTER → 2023-12-31 23:59 | Outpatient (BNV) | payer BC, SELFPAY ==
--- NOTE | 2024-01-10 17:11 | MHC.OFFVIS ---
Intake Visit Reasons: Remote ICD check- [employer] Allergies morphine [Morphine] Allergy (Mild, Verified 12/16/23 11:44) FLUSH, SHORT OF BREATH SEASONAL ALLERGIES Allergy (Unknown, Uncoded 12/16/23 11:44) SHORT OF BREATH [facility] Medical History (Updated 12/16/23 @ 11:47 by Ondina France MD) Obesity Back pain of lumbar region with sciatica Pain in right femur Hip pain, right Balanitis Change in bowel function Diarrhea Morbid obesity Diabetes type 2, uncontrolled Fatty liver Ventricular tachycardia Peripheral vascular disease Vitamin D deficiency GERD (gastroesophageal reflux disease) Hypercholesterolemia Left bundle branch block AZEEM (obstructive sleep apnea) HTN (hypertension) Biventricular ICD (implantable cardioverter-defibrillator) in place Nonischemic cardiomyopathy Surgical History History of permanent cardiac pacemaker placement History of cardiac catheterization Family History Father CHF (congestive heart failure) Diabetes Mother No problems noted. Social History Housing: House Alcohol intake: current Alcohol intake frequency: a few times a week Patient Tobacco Use Status: Never used Tobacco e-Cigarette/Vaping Use: Never Used Second Hand Smoke Exposure: No service: No Current occupational status: employed Cognitive needs: No Hearing needs: No Vision needs: Yes (reading glasses) Office Procedures Cardiac Device Check Cardiac Device Check Details: Remote ICD report generated 12/31/2023. ICD function is adequate. Bi V pacing 97% of time 56072-[id number] Cardiac Interrogation, implant defibrillator w/interim Procedure code (CPT) selection complete Assessment & Plan Assessment & Plan (1) Biventricular ICD (implantable cardioverter-defibrillator) in place: Comment: September 2019 Code(s): Z95.810 - Presence of automatic (implantable) cardiac defibrillator Category: Medical Plan: See above Coding Level of Care Code Procedure Only Diagnoses Biventricular ICD (implantable cardioverter-defibrillator) in place Z95.810 CPT Codes Cardiac Device Check - Cardiac Device 13: 08010-Pefgia Cardiac Interrogation, implant defibrillator w/interim ([id number])
== END ==
PROVIDERS: PCP Internal Medicine; Visit Provider Internal Medicine Cardiovascular Disease
DX: Z45.02 Encounter for adjustment and management of automatic implantable cardiac defibrillator (principal)
CPT/HCPCS: 93295

== ENCOUNTER → 2024-03-20 23:59 | Outpatient (BNV) | payer BC, SELFPAY ==
--- NOTE | 2024-04-05 14:02 | MHC.OFFVIS ---
Intake Visit Reasons: Remote HF monitoring- [employer] Allergies morphine [Morphine] Allergy (Mild, Verified 03/23/24 14:48) FLUSH, SHORT OF BREATH SEASONAL ALLERGIES Allergy (Unknown, Uncoded 03/23/24 14:48) SHORT OF BREATH [facility] Medical History (Updated 03/23/24 @ 15:36 by Ondina France MD) Obesity Back pain of lumbar region with sciatica Pain in right femur Hip pain, right Balanitis Change in bowel function Diarrhea Morbid obesity Diabetes type 2, uncontrolled Fatty liver Ventricular tachycardia Peripheral vascular disease Vitamin D deficiency GERD (gastroesophageal reflux disease) Hypercholesterolemia Left bundle branch block AZEEM (obstructive sleep apnea) HTN (hypertension) Biventricular ICD (implantable cardioverter-defibrillator) in place Nonischemic cardiomyopathy Surgical History History of permanent cardiac pacemaker placement History of cardiac catheterization Family History Father CHF (congestive heart failure) Diabetes Mother No problems noted. Social History Housing: House Alcohol intake: current Alcohol intake frequency: a few times a week Patient Tobacco Use Status: Never used Tobacco e-Cigarette/Vaping Use: Never Used Second Hand Smoke Exposure: No service: No Current occupational status: employed Cognitive needs: No Hearing needs: No Vision needs: Yes (reading glasses) Office Procedures Cardiac Device Check Cardiac Device Check Details: Remote heart failure report generated 03/20/2024. Heart failure parameters are stable [id number] Cardiac Device Interrogation, cardio physiologic monitor Procedure code (CPT) selection complete Assessment & Plan Assessment & Plan (1) Biventricular ICD (implantable cardioverter-defibrillator) in place: Comment: September 2019 Code(s): Z95.810 - Presence of automatic (implantable) cardiac defibrillator Category: Medical Plan: See above Coding Level of Care Code Procedure Only Diagnoses Biventricular ICD (implantable cardioverter-defibrillator) in place Z95.810 CPT Codes Cardiac Device Check - Cardiac Device 15: [id number] Cardiac Device Interrogation, cardio physiologic monitor ([id number])
== END ==
PROVIDERS: PCP Internal Medicine; Visit Provider Internal Medicine Cardiovascular Disease
DX: Z45.02 Encounter for adjustment and management of automatic implantable cardiac defibrillator (principal)
CPT/HCPCS: 93297

== ENCOUNTER 2024-03-23 14:44 | Outpatient (AMB) | payer BC, SELFPAY ==
--- NOTE | 2024-03-23 14:46 | A.OFFPC_ITS ---
Vital Signs 03/23/24 14:48 Height 5 ft 9 in Weight 266 lb 8 oz BMI 39.4 BP 130/72 Blood Pressure Location Lt brachial Position Sitting Pulse 109 H Pulse Source Pulse Oximeter Temp 97.1 F Temp Source Skin Pulse Oximetry (%) 94 Oxygen Delivery Method Room Air Intake Visit Reasons: Diabetes mellitus Intake Note: Patient is here to follow up on DM. 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: No Advertiser: Not Required per policy Accompanied by: Self / Same As Patient Allergies morphine [Morphine] Allergy (Mild, Verified 03/23/24 14:48) FLUSH, SHORT OF BREATH SEASONAL ALLERGIES Allergy (Unknown, Uncoded 03/23/24 14:48) SHORT OF BREATH Tobacco use date assessed: 03/23/24 Dental Screening Dental Screen Date: 03/23/24 Did you have a dental visit in the last 12 months?: No Did you have a dental problem in the last 6 months where you did not have access to dental care?: No Was dental information given to patient?: Patient has dentist HPI Diabetes mellitus HPI Details The patient is a 58-year-old male presenting with persistent respiratory symptoms and requests follow-up on his chronic conditions, including diabetes, hyperlipidemia, and fatty liver disease. The respiratory symptoms include a persistent cough that has persisted without fever, and some tightness previously noted during coughing episodes, which has improved over time. He has been using Mucinex to alleviate the symptoms and reports improved condition, though mild throat irritation persists without significant pain. He denies experiencing any wheezing or crackles currently. The patient reports having seen an increase in cholesterol levels and elevated liver enzymes in previous blood work. His diabetes management is ongoing with medication adjustment considerations, with past glycemic levels being 9% on previous checks. The patient also has obstructive sleep apnea and uses a CPAP machine, with a regular follow-up on his ICD for cardiovascular monitoring. Previous echocardiograms and cardiac evaluations have been conducted due to concern for cardiac function; these are part of continued monitoring efforts. Additional chronic conditions include concerns for prostate health with ongoing folic acid and thyroid levels being monitored with prior normal results. The patient acknowledges challenges in maintaining lower cholesterol and achieving optimal glycemic control and has been advised on the necessity of reducing cholesterol and managing blood pressure targets. He reports maintaining regular physical activity levels. Recent social history notes a crowded clinic schedule and coming to the appointment after work assignments. COUNTS INCLUDE 234 BEDS AT THE [facility] Medical History (Updated 03/23/24 @ 15:36 by Ondina France MD) Obesity Back pain of lumbar region with sciatica Pain in right femur Hip pain, right Balanitis Change in bowel function Diarrhea Morbid obesity Diabetes type 2, uncontrolled Fatty liver Ventricular tachycardia Peripheral vascular disease Vitamin D deficiency GERD (gastroesophageal reflux disease) Hypercholesterolemia Left bundle branch block AZEEM (obstructive sleep apnea) HTN (hypertension) Biventricular ICD (implantable cardioverter-defibrillator) in place Nonischemic cardiomyopathy Surgical History History of permanent cardiac pacemaker placement History of cardiac catheterization Family History Father CHF (congestive heart failure) Diabetes Mother No problems noted. Social History Housing: House Alcohol intake: current Alcohol intake frequency: a few times a week Patient Tobacco Use Status: Never used Tobacco e-Cigarette/Vaping Use: Never Used Second Hand Smoke Exposure: No service: No Current occupational status: employed Cognitive needs: No Hearing needs: No Vision needs: Yes (reading glasses) Questionnaire PHQ-9 Over the last 2 weeks, how often have you been bothered by any of the following problems? 1. Little interest or pleasure in doing things: not at all 2. Feeling down, depressed, or hopeless: not at all 3. Trouble falling or staying asleep, or sleeping too much: not at all 4. Feeling tired or having little energy: not at all 5. Poor appetite or overeating: not at all 6. Feeling bad about yourself - or that you are a failure or have let yourself or your family down: not at all 7. Trouble concentrating on things, such as reading the newspaper or watching television: not at all 8. Moving or speaking so slowly that other people could have noticed. Or the opposite - being so fidgety or restless that you have been moving around a lot more than usual: not at all 9. Thoughts that you would be better off or of hurting yourself in some way: not at all Total score: 0 Depression Screening Interpretation: Negative Depression Screening Done: Yes Source: Developed by Drs. Jasvir Salazar, Jory BAkira Pizano and colleagues, with an educational saloni from [employer]. Thrive Questionnaire Date Thrive assessed: 03/23/24 I am a: Patient What is your living situation today?: I have a steady place to live Within the past 12 months, did the food you bought not last and you didn't have the money to get more?: Never true Within the past 12 months, did you worry whether your food would run out before you got money to buy more?: Never true Do you have trouble paying for medicines?: No Do you have trouble getting transportation to medical appointments?: No Do you have trouble paying your heating and electricity bill?: No Do you have trouble taking care of your child, family member or friend?: No Do you have trouble with day-to-day activities such as bathing, preparing meals, shopping, managing finances, etc.?: No Are you currently unemployed and looking for a job?: No Are you interested in more education?: No Please select the resources that you would like help with: None Currently or been in a relationship where the following occur: No concerns repo rted THRIVE Score: 0 AUDIT C Alcohol Use Questionnaire (AUDIT-C) 1. How often do you have a drink containing alcohol?: 2-3 times a week 2. How many drinks containing alcohol do you have on a typical day when you are drinking?: 1 or 2 Total Score: 3 VERONICA-7 AMB Questionnaire VERONICA-7 Date VERONICA - 7 assessed: 03/23/24 Feeling nervous, anxious, or on edge: 0 = Not at all Not being able to stop or control worryin = Not at all Worrying too much about different things: 0 = Not at all Trouble relaxin = Not at all Being so restless that it is hard to sit still: 0 = Not at all Becoming easily annoyed or irritable: 0 = Not at all Feeling afraid as if something awful might happen: 0 = Not at all Total VERONICA-7 score (0-4 normal; 5-9 mild; 10-14 moderate; 15-21 severe): 0 Source: Developed by Drs. Jasvir Salazar, Akira Joaquin and colleagues, with an educational saloni from [employer]. Physical exam (Primary Care) Vital Signs: Last Vital Signs Temp 97.1 F 03/23/24 14:48 Pulse 109 H 03/23/24 14:48 BP 130/72 03/23/24 14:48 Pulse Ox 94 03/23/24 14:48 Oxygen Delivery Method Room Air 03/23/24 14:48 BMI result Body Mass Index 39.4 Tobacco/Smoking Status: Tobacco use Status Tobacco use date assessed 03/23/24 03/23/24 14:54 Patient Tobacco Use Status Never used Tobacco 03/23/24 14:54 e-Cigarette/Vaping Use Never Used 03/23/24 14:54 PHQ-9: PHQ-9 Score PHQ-9: Total score 0 03/23/24 14:54 Depression Screening Interpretation: Negative Thrive Assessment: Date of Thrive Assessment Date Thrive assessed 03/23/24 03/23/24 14:54 Currently or been in a relationship where the following occur: No concerns reported Const General: alert; No acute distress Eyes Conjunctivae: conjunctivae normal Resp Auscultation: clear to auscultation bilaterally Cardio Rate: regular rate Rhythm: regular rhythm GI Inspection: Yes normal to inspection Extrem General: Yes normal to inspection and No edema Results AMB Hemoglobin A1c AMB Hemoglobin A1c 8.5 % Last Edit by KEVIN Granado on 03/23/24 15:05 Results Reviewed Results Reviewed: Laboratory Last Values Hgb A1c (Clinic) 8.5 % (4.0-6.0) H 03/23/24 14:46 Coding Level of Care Code Est Pt Level 4 (34002) Complex EM visit Add On G2211 Diagnoses Type 2 diabetes mellitus with hyperglycemia, without long-term current use of insulin E11.65 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 Streeter Code(s): E11.65 - Type 2 diabetes mellitus with hyperglycemia Category: Medical Qualifiers: Diabetes mellitus [facility] insulin use: without [facility] use Qualified Code(s): E11.65 - Type 2 diabetes mellitus with hyperglycemia (2) AZEEM (obstructive sleep apnea): Comment: CPAP use Code(s): G47.33 - Obstructive sleep apnea (adult) (pediatric) Category: Medical (3) HTN (hypertension): Code(s): I10 - Essential (primary) hypertension Category: Medical Qualifiers: Hypertension type: essential hypertension Qualified Code(s): I10 - Essential (primary) hypertension (4) Biventricular ICD (implantable cardioverter-defibrillator) in place: Comment: September 2019 Code(s): Z95.810 - Presence of automatic (implantable) cardiac defibrillator Category: Medical (5) Hypercholesterolemia: Code(s): E78.00 - Pure hypercholesterolemia, unspecified Category: Medical (6) GERD (gastroesophageal reflux disease): Code(s): K21.9 - Gastro-esophageal reflux disease without esophagitis Category: Medical Qualifiers: Esophagitis presence: without esophagitis Qualified Code(s): K21.9 - Gastro-esophageal reflux disease without esophagitis (7) Morbid (severe) obesity due to excess calories: Code(s): E66.01 - Morbid (severe) obesity due to excess calories Category: Medical (8) Fatty liver: Comment: May 2023 Code(s): K76.0 - Fatty (change of) liver, not elsewhere classified Category: Medical (9) Thoracic aortic aneurysm: Comment: 04/27/2023 Low normal LV ejection fraction of 50-55% with mild LVH with grade 1 diastolic dysfunction 2. Normal cardiac valvular Dopplers 3. Normal RV systolic pressure 4. Mildly dilated ascending aorta at 4 cm 5. No pericardial effusion Code(s): I71.20 - Thoracic aortic aneurysm, without rupture, unspecified Category: Medical (10) Asthmatic bronchitis: Code(s): J45.909 - Unspecified asthma, uncomplicated Category: Medical Plan 1. - Continue monitoring liver function and manage hyperlipidemia with diet and medication; ensure cholesterol levels <100: - Reinforce the use of CPAP for obstructive sleep apnea management. - Schedule regular ICD checks and cardiovascular evaluations to ensure appropriate heart function monitoring. - Follow prostate health parameters and continue ongoing folic acid and thyroid monitoring. - Advisement on maintaining physical activity and ongoing monitoring for any further respiratory complications or if increased symptoms present. - Immediate follow-up if respiratory symptoms intensify to exclude any viral or respiratory complex involvement. - Reinforce hygiene practices to avoid bacterial or viral infections, considering potential norovirus exposure. - Maintain consistent communication through the patient portal for questions or concerns. Orders: Orders AMB Hemoglobin A1c Today E11.65 - Type 2 diabetes mellitus with hyperglycemia Medications: New albuterol sulfate 90 mcg/actuation (Ventolin HFA) 2 puffs inhalation Q6H PRN 8.5 grams 0RF shortness of breath or wheezing J45.909 - Unspecified asthma, uncomplicated Changed From empagliflozin (Jardiance) 10 mg PO DAILY 30 tabs 0RF E11.65 - Type 2 diabetes mellitus with hyperglycemia To empagliflozin 25 mg PO DAILY 30 tabs 5RF E11.65 - Type 2 diabetes mellitus with hyperglycemia
[2024-03-23 14:48] VITALS: BP 130/72; PULSE 109; TEMP 36.2; O2SAT 94; BMI 39.4
== END 2024-03-23 15:49 | disposition home or self-care (01) ==
PROVIDERS: PCP Internal Medicine; Visit Provider Internal Medicine
DX: E11.65 Type 2 diabetes mellitus with hyperglycemia (principal); E66.01 Morbid (severe) obesity due to excess calories; I71.20 Thoracic aortic aneurysm, without rupture, unspecified; Z68.39 Body mass index [BMI] 39.0-39.9, adult; G47.33 Obstructive sleep apnea (adult) (pediatric); I10 Essential (primary) hypertension; Z95.810 Presence of automatic (implantable) cardiac defibrillator; E78.00 Pure hypercholesterolemia, unspecified; K21.9 Gastro-esophageal reflux disease without esophagitis; K76.0 Fatty (change of) liver, not elsewhere classified; J45.909 Unspecified asthma, uncomplicated

== ENCOUNTER → 2024-04-27 23:59 | Outpatient (BNV) | payer BC, SELFPAY ==
--- NOTE | 2024-04-27 12:59 | MHC.OFFVIS ---
Intake Visit Reasons: Remote HF monitoring- [employer] Allergies morphine [Morphine] Allergy (Mild, Verified 03/23/24 14:48) FLUSH, SHORT OF BREATH SEASONAL ALLERGIES Allergy (Unknown, Uncoded 03/23/24 14:48) SHORT OF BREATH [facility] Medical History (Updated 03/23/24 @ 15:36 by Ondina France MD) Obesity Back pain of lumbar region with sciatica Pain in right femur Hip pain, right Balanitis Change in bowel function Diarrhea Morbid obesity Diabetes type 2, uncontrolled Fatty liver Ventricular tachycardia Peripheral vascular disease Vitamin D deficiency GERD (gastroesophageal reflux disease) Hypercholesterolemia Left bundle branch block AZEEM (obstructive sleep apnea) HTN (hypertension) Biventricular ICD (implantable cardioverter-defibrillator) in place Nonischemic cardiomyopathy Surgical History History of permanent cardiac pacemaker placement History of cardiac catheterization Family History Father CHF (congestive heart failure) Diabetes Mother No problems noted. Social History Housing: House Alcohol intake: current Alcohol intake frequency: a few times a week Patient Tobacco Use Status: Never used Tobacco e-Cigarette/Vaping Use: Never Used Second Hand Smoke Exposure: No service: No Current occupational status: employed Cognitive needs: No Hearing needs: No Vision needs: Yes (reading glasses) Office Procedures Cardiac Device Check Cardiac Device Check Details: Remote ICD report generated April 27 2024. ICD function is adequate. Bi V pacing 98% of the time [id number] Cardiac Interrogation, implant defibrillator w/interim Procedure code (CPT) selection complete Assessment & Plan Assessment & Plan (1) Biventricular ICD (implantable cardioverter-defibrillator) in place: Comment: September 2019 Code(s): Z95.810 - Presence of automatic (implantable) cardiac defibrillator Category: Medical Plan: See above Coding Level of Care Code Procedure Only Diagnoses Biventricular ICD (implantable cardioverter-defibrillator) in place Z95.810 CPT Codes Cardiac Device Check - Cardiac Device 13: [id number] Cardiac Interrogation, implant defibrillator w/interim ([id number])
== END ==
PROVIDERS: PCP Internal Medicine; Visit Provider Internal Medicine Cardiovascular Disease
DX: Z45.02 Encounter for adjustment and management of automatic implantable cardiac defibrillator (principal)
CPT/HCPCS: 93295

== ENCOUNTER → 2024-04-28 23:59 | Outpatient (BNV) | payer BC, SELFPAY ==
--- NOTE | 2024-05-01 15:44 | A.OFFVIS_ITS ---
Intake Visit Reasons: Remote HF monitoring- [employer] Allergies morphine [Morphine] Allergy (Mild, Verified 03/23/24 14:48) FLUSH, SHORT OF BREATH SEASONAL ALLERGIES Allergy (Unknown, Uncoded 03/23/24 14:48) SHORT OF BREATH [facility] Medical History (Updated 03/23/24 @ 15:36 by Ondina France MD) Obesity Back pain of lumbar region with sciatica Pain in right femur Hip pain, right Balanitis Change in bowel function Diarrhea Morbid obesity Diabetes type 2, uncontrolled Fatty liver Ventricular tachycardia Peripheral vascular disease Vitamin D deficiency GERD (gastroesophageal reflux disease) Hypercholesterolemia Left bundle branch block AZEEM (obstructive sleep apnea) HTN (hypertension) Biventricular ICD (implantable cardioverter-defibrillator) in place Nonischemic cardiomyopathy Surgical History History of permanent cardiac pacemaker placement History of cardiac catheterization Family History Father CHF (congestive heart failure) Diabetes Mother No problems noted. Social History Housing: House Alcohol intake: current Alcohol intake frequency: a few times a week Patient Tobacco Use Status: Never used Tobacco e-Cigarette/Vaping Use: Never Used Second Hand Smoke Exposure: No service: No Current occupational status: employed Cognitive needs: No Hearing needs: No Vision needs: Yes (reading glasses) Office Procedures Cardiac Device Check Cardiac Device Check Details: Remote ICD report generated 04/28/2024. ICD function is adequate [id number] Cardiac Interrogation, implant defibrillator w/interim Procedure code (CPT) selection complete Assessment & Plan Assessment & Plan (1) Biventricular ICD (implantable cardioverter-defibrillator) in place: Comment: September 2019 Code(s): Z95.810 - Presence of automatic (implantable) cardiac defibrillator Category: Medical Plan: See above Coding Level of Care Code Procedure Only Diagnoses Biventricular ICD (implantable cardioverter-defibrillator) in place Z95.810 CPT Codes Cardiac Device Check - Cardiac Device 13: [id number] Cardiac Interrogation, implant defibrillator w/interim ([id number])
== END ==
PROVIDERS: PCP Internal Medicine; Visit Provider Internal Medicine Cardiovascular Disease
DX: Z45.02 Encounter for adjustment and management of automatic implantable cardiac defibrillator (principal)
CPT/HCPCS: 93295

== ENCOUNTER → 2024-05-10 14:51 | Outpatient (REF) | payer BC, SELFPAY ==
--- NOTE | 2024-05-10 14:57 | CA_ITS ---
Transthoracic Echocardiogram Patient (Last, First, Middle): Mark Roth P Gender: Male Date of : 1965 Age: 58 Procedure Date: 05/10/2024 Procedure Type: Transthoracic Echocardiogram Location: OP Height: 175.26 cm Weight: 120.66 kg BSA: 2.33 m2 Heart Rate: 63 bpm BP: 130 / 72 mmHg Sas Developer Analyst: CINDY Referring MD: Papi Peterson MD Microstrategy Developer: Papi Peterson MD Symptoms: I42.8 - Other cardiomyopathies Study Quality: Technically Difficult ECG Rhythm: Sinus Conclusions: - 1. Normal LV ejection fraction 55-60% with mild asymmetric septal hypertrophy with impaired relaxation filling pattern 2. Normal cardiac valvular Dopplers 3. Mildly dilated ascending aorta at 4 cm Findings Procedure Information Contrast agent, definity, is being given per protocol without apparent complications. Left Ventricle Normal left ventricular size, thickness, and systolic function. The visually estimated ejection fraction is between 55-60%. There is paradoxical septal motion consistent with a right ventricular pacemaker. Spectral Doppler is indicative of an impaired relaxation filling pattern. E/E prime ratio is between 8 and 15 consistent with indeterminate filling pressures. There is mild septal asymmetric hypertrophy. Right Ventricle Moderately increased right ventricular cavity size. There is normal right ventricular systolic function. There is an ICD wire seen in the right ventricle. Atria The left atrium was not well visualized. Interatrial shunt cannot be excluded. The right atrium was not well visualized. A pacemaker wire is identified in the right atrium. Aortic Valve The aortic valve was not well visualized. There is no aortic valve stenosis. There is no aortic valve regurgitation. Mitral Valve Likely normal mitral valve structure and function. There is trace mitral valve regurgitation. There is no mitral valve stenosis. Pulmonic Valve The pulmonic valve was not well visualized. Tricuspid Valve The tricuspid valve was not well visualized. Tricuspid regurgitation envelope is inadequate for calculation of right ventricular systolic pressure. Great Vessels The aorta was not well visualized. The pulmonary artery was not well visualized. There is mild dilatation of the ascending aorta measuring 4.00 cm. Venous The inferior vena cava is normal in size and collapses greater than 50% with inspiration. Pericardium/Pleural The pericardium was not well visualized. Prior Study Comparison Changes noted compared to prior study dated: 04/27/2023. LV systolic function has marginally improved Measurements 2D Linear Measurements IVSd: 1.38 0.6-0.9/0.6-1.0 cm LVIDd: 4.68 3.9-5.3/4.2-5.9 cm LVIDd Index: 2.01 2.4-3.2/2.2-3.1 cm/m2 LVIDs: 3.24 2.0-3.6 cm LVPWd: 1.01 0.7-1.1 cm LA Diam: 4.10 2.7-3.8/3.0-4.0 cm LAIDs Index: 1.76 1.5-2.3 cm/m2 LV Mass: 260.93 67-162/88-224 g LV Mass Index: 111.99 43-95/49-115 g/m2 LVOT Diam: 2.40 3.0+(-)1.3 cm 2D Systolic Function EF 4C: 53.40 >55% EF 2C: 59.40 >55% EF BiP: 55.40 >55% Mitral Valve MV Pk E: 0.52 MV PK A: 0.60 MV Decel Time: 242.00 E/A: 0.90 E'Lateral: 6.96 E'Medial: 4.79 E/E' Med: 10.90 E/E' Lat: 7.50 PHT: 71.00 MVA PHT: 3.10 Decel Roseau: 2.16 Aortic Valve AoV Pk Gibran: 1.49 AoV Mn Gibran: 1.09 AoV VTI: 0.32 AoV Pk Grad: 9.00 Aov Mn Grad: 5.00 DIMITRY Cont.VTI: 2.62 LVOT LVOT Pk Gibran: 0.90 LVOT Mn Gibran: 0.64 LVOT VTI: 0.19 LVOT Pk Grad: 3.00 LVOT Mn Grad: 2.00 LVOT Diam: 2.40 LVOT Area: 4.52 Diastolic Function MV Pk E: 0.52 MV Pk A: 0.60 E/A: 0.90 E'Medial: 4.79 E/E' Med: 10.90 E' Laterial: 6.96 E/E' Lat: 7.50 Right Ventricle TAPSE (mm): 20.90 TVS' Gibran: 12.00 Great Vessels Aorta Sinus of Valsalva: 3.51 2.0-3.[address] [place]: 2.88 1.7-3.4 cm Ao Asc: 4.00 2.1-3.4 cm Updated in Other Vendor System with Status of Final Papi Peterson MD electronically signed on 05/11/2024 11:43:30 AM with status of Final
--- OUTSIDE RECORDS SUMMARY | 2024-05-10 17:57 | XMS_ITS | Clinical Summary ---
Author Organization [address] [place] [address] Care Team Providers Care Refrigeration Service Technician Name Role Phone Unavailable Primary Care Provider Unavailabl e Allergies Active Allergy Reactions Criticality Noted Date Comments Morphine Hives High 09/27/2019 Medications albuterol sulfate 90 mcg/actuation HFA aerosol inhaler 5 Active metoprolol succinate XL (TOPROL-XL) 100 mg 24 hr tablet Take 1.5 tablets (150 mg total) by mouth daily. 4 Active metFORMIN (GLUCOPHAGE) 500 mg Immediate Release tablet Take 1 tablet (500 mg total) by mouth. Active lisinopriL (PRINIVIL,ZEST RIL) 40 mg tablet Take 1 tablet (40 mg total) by mouth daily. Active lovastatin (MEVACOR) 40 mg tablet Take 1 tablet (40 mg total) by mouth daily. Active JARDIANCE 25 mg tablet 5 Active OZEMPIC 2 mg/dose (8 mg/3 mL) pen injector INJECT 2 MG (0.75 ML) SUBCUTANEOUSLY EVERY WEEK 4 Active Encounters Date Type Department Care Team Description 03/25/2024 1:16 PM EST - 03/25/2024 3:00 PM EST Emergency [facility] [address] [place] [address] Acute parotitis (Primary Dx) Discharge Disposition: Home or Self Care 03/25/2024 Travel 03/24/2024 4:20 PM EST Office Visit [facility] [address] [place] [address] Yamile Malcolm, SKINNY Parotitis, acute (Primary Dx) from Last 3 Months Social History Tobacco Use Types Packs/Day Years Used Date Smoking Tobacco: Never Tobacco Cessation:Counseling Given: Not Answered Alcohol Use Standard Drinks/Week Comments Yes 0 (1 standard drink = 0.6 oz pur e alcohol) Interpersonal Safety Answer Date Record ed Is there anyone in your life that is hurting or threatening you in anyway? no 03/25/2024 Physical Indicators of Abuse No evidence of phys ical abuse 03/25/2024 Sex and Gender Information Value Date Recorded Sex Assigned at Not on file Legal Sex Male 2:07 PM EST Gender Identity Not on file Sexual Orientation Not on file Last Filed Vital Signs Vital Sign Reading Time Taken Comments Blood Pressure 137/84 03/25/2024 2:39 PM EST Pulse 88 03/25/2024 2:39 PM EST Temperature 36.9 ??C (98.4 ??F) 03/25/2024 1:08 PM ES T Respiratory Rate 20 03/25/2024 1:08 PM EST Oxygen Saturation 98% 03/25/2024 2:39 PM EST Inhaled Oxygen Concentration - - Weight 120.7 kg (266 lb) 03/25/2024 1:08 PM EST Height 175.3 cm (5' 9 ) 03/25/2024 1:08 PM EST Body Mass Index 39.28 03/25/2024 1:08 PM EST Plan of Treatment Health Maintenance Due Date Last Done Comments HIV screening 1978 Hepatitis C screening 12/04/1983 Tetanus adult (Td q 10,TDAP once) 1985 Lipid disorder screening 2005 Colon cancer screening, Colonoscopy 2010 Shingles vaccine (Shingrix) (1 of 2 - Shingrix (RZV) 2 Dose Standard Series) 12/04/2015 Influenza vaccine 10/07/2023 Covid-19 vaccine series ( - season) 2023 Diabetes screening 03/25/2027 03/25/2024 Pneumococcal Vaccine (50+ ye ars) (1 of 1 - PCV) 2030 RSV Discussion (1 - 1-dose 7 5+ series) 2040 Meningococcal Vaccine Aged Out No fiona kyler eligible based on patient's age to complete this topic Pneumococcal Vaccine (2 - 49 years) Aged Out No longer eligible b ased on patient's age to complete this topic Procedures Procedure Name Priority Date/Time Associated Diagnosis Comments CT SOFT TISSUE NECK W IV CONTRAST Within 2 hours (STAT) 03/25/2024 2:17 PM EST BASIC METABOLIC PANEL STAT 03/25/2024 1:37 PM EST CBC AND DIFFERENTIAL STAT 03/25/2024 1:37 PM EST BASIC METABOLIC PANEL STAT 03/25/2024 1:37 PM EST CBC WITH AUTO DIFFERENTIAL STAT 03/25/2024 1:37 PM EST from Last 3 Months Results * CT Soft Tissue Neck w IV Contrast (03/25/2024 2:17 PM EST) Anatomical Region Laterality Modality Neck, Ortho Neck Computed Tomogr aphy 03/25/2024 2:17 PM EST Impressions 03/25/2024 2:24 PM EST No abscess is demonstrated. Mild inflammatory changes are present overlying the left parotid gland suggesting mild parotitis.. Reported and signed by: ??Ashanti Gallo MD Narrative 03/25/2024 2:[address] SOFT TISSUE NECK W IV CONTRAST ?? HISTORY: Soft tissue infection suspected, neck, no prior imaging Parotid gland swelling bilaterally. COMPARISON: None. G9637 - RADIATION DOSE ACQUIRED DURING SCAN: 386.02 mGy.cm. The [facility] Imaging Department strives for high quality imaging with the lowest possible radiation dose. For more information on medical radiation exposure please visit: [email or web address] . TECHNIQUE: Axial sections were obtained from the skull base to the sternum after the administration of intravenous contrast (70 cc of Omnipaque 350). Sagittal and coronal reformatted images were provided. ?? FINDINGS: The parotid glands appear slightly prominent and symmetric bilaterally. There is no intraparotid mass. The overlying subcutaneous tissue appears slightly inflamed on the left. No abscess is evident. The submandibular glands appear symmetric. There is a mass adjacent to the left submandibular gland, slightly more anterior, this has the appearance of ectopic salivary gland tissue. The palatine tonsils appear slightly prominent bilaterally and contain coarse calcifications. The epiglottis and aryepiglottic folds appear normal. There is no vocal cord abnormality. The thyroid gland appears normal. There are scattered cervical lymph nodes bilaterally. The largest is present on the left at level two measuring 8 x 15 mm. The included lung apex appears normal. Procedure Note Ashanti Gallo MD - 03/25/2024 CT SOFT TISSUE NECK W IV CONTRAST HISTORY: Soft tissue infection suspected, neck, no prior imaging Parotid gland swelling bilaterally. COMPARISON: None. G9637 - RADIATION DOSE ACQUIRED DURING SCAN: 386.02 mGy.cm. The [facility] Imaging Department strives for high qualityimaging with the lowest possible radiation dose. For more information onmedical radiation exposure please visit: [email or web address] . TECHNIQUE: Axial sections were obtained from the skull base to the sternumafter the administration of intravenous contrast (70 cc of Omnipaque 350).Sagittal and coronal reformatted images were provided. FINDINGS: The parotid glands appear slightly prominent and symmetricbilaterally. There is no intraparotid mass. The overlying subcutaneoustissue appears slightly inflamed on the left. No abscess is evident. Thesubmandibular glands appear symmetric. There is a mass adjacent to theleft submandibular gland, slightly more anterior, this has the appearanceof ectopic salivary gland tissue. The palatine tonsils appear slightlyprominent bilaterally and contain coarse calcifications. The epiglottisand aryepiglottic folds appear normal. There is no vocal cord abnormality.The thyroid gland appears normal. There are scattered cervical lymph nodesbilaterally. The largest is present on the left at level two measuring 8 x15 mm. The included lung apex appears normal. IMPRESSION: No abscess is demonstrated. Mild inflammatory changes are presentoverlying the left parotid gland suggesting mild parotitis.. Reported and signed by: Ashanti Gallo MD [facility] [place] ORDERABLES Final Result * (ABNORMAL) Basic metabolic panel (03/25/2024 1:37 PM EST) Glucose 316(H) 65 - 110 mg/dL 03/25/2024 2:[address] [facility] Comment: Non-fasting: ??65-110 mg/dL Fasting (minimum 6 hrs): ??65-99 mg/dL BUN 12 7 - 18 mg/dL 03/25/2024 2:[address] [facility] Creatinine 0.94 0.70 - 1.30 mg/dL 03/25/2024 2:[address] [facility] Sodium 135(L) 136 - 145 mmol/L 03/25/2024 2:[address] [facility] Potassium 3.7 3.5 - 5.1 mmol/L 03/25/2024 2:[address] [facility] Chloride 105 98 - 107 mmol/L 03/25/2024 2:[address] [facility] CO2 26 21 - 32 mmol/L 03/25/2024 2:[address] [facility] Anion Gap 4(L) 5 - 15 mmol/L 03/25/2024 2:[address] [facility] Calcium 9.6 8.5 - 10.1 mg/dL 03/25/2024 2:[address] [facility] eGFR (Creatinine) >60 >=60 mL/min/1.7 3m2 03/25/2024 2:[address] [facility] Comment: [facility] utilizes CKD-EPI Creatinine 2020 to report eGFR. Values < 60 mL/min/1.73 m2 may indicate CKD if present for more than three months AND creatinine is at steady state. The eGFR provides a rough estimate of kidney function. For further guidance, please refer to the CKD: Adult Surgeon/President Signature pathway. Creatinine Delta 03/25/2024 2:[address] [facility] Comment:No previous creatini ne <5.00 mg/dL is available within the previous 12 months to calculate a delta creatinine. Blood Venipuncture / Unknown 03/25/2024 1:37 PM EST 03/25/2024 1:40 PM EST us [facility] ORDERABLES Final Resu lt [facility] [address] [place] [address], [facility] [phone] * CBC auto differential (03/25/2024 1:37 PM EST) WBC 4.1 4.0 - 11.0 x1000/??L 03/25/2024 1:43 PM EST [facility] RBC 4.76 4.00 - 6.00 M/??L 03/25/2024 1:43 PM EST [facility] Hemoglobin 15.1 13.2 - 17.1 g/dL 03/25/2024 1:43 PM EST [facility] Hematocrit 43.90 38.50 - 50.00 % 03/25/2024 1:43 PM EST [facility] MCV 92.2 80.0 - 100.0 fL 03/25/2024 1:43 PM EST [facility] MCH 31.7 27.0 - 33.0 pg 03/25/2024 1:43 PM EST [facility] MCHC 34.4 31.0 - 36.0 g/dL 03/25/2024 1:43 PM EST [facility] RDW-CV 12.4 11.0 - 15.0 % 03/25/2024 1:43 PM EST [facility] Platelets 190 150 - 420 x1000/??L 03/25/2024 1:43 PM EST [facility] MPV 9.1 8.0 - 12.0 fL 03/25/2024 1:43 PM EST [facility] Neutrophils 56.0 39.0 - 72.0 % 03/25/2024 1:43 PM EST [facility] Lymphocytes 26.5 17.0 - 50.0 % 03/25/2024 1:43 PM EST [facility] Monocytes 11.9 4.0 - 12.0 % 03/25/2024 1:43 PM EST [facility] Eosinophils 4.4 0.0 - 5.0 % 03/25/2024 1:43 PM EST [facility] Basophil 0.7 0.0 - 1.4 % 03/25/2024 1:43 PM EST [facility] Immature Granulocytes 0.5 0.0 - 1.0 % 03/25/2024 1:43 PM EST [facility] nRBC 0.0 0.0 - 1.0 % 03/25/2024 1:[address] [facility] Absolute Lymphocyte Count 1.09 0.60 - 3.70 x 1000/??L 03/25/2024 1:[address] [facility] Monocyte Absolute Count 0.49 0.00 - 1.00 x 1000/??L 03/25/2024 1:[address] [facility] Eosinophil Absolute Count 0.18 0.00 - 1.00 x 1000/??L 03/25/2024 1:[address] [facility] Basophil Absolute Count 0.03 0.00 - 1.00 x 1000/??L 03/25/2024 1:[address] [facility] Absolute Immature Granulocyte Count 0.02 0.00 - 0.30 x 1000/??L 03/25/2024 1:[address] [facility] Absolute nRBC 0.00 0.00 - 1.00 x 1000/??L 03/25/2024 1:[address] [facility] ANC (Abs Neutrophil Count) 2.30 2.00 - 7.60 x 1000/??L 03/25/2024 1:[address] [facility] Blood Venipuncture / Unknown 03/25/2024 1:37 PM EST 03/25/2024 1:40 PM EST [facility] ORDERAB[facility] Final Resu lt Performing Organization Address City/State/[facility] Co de Phone Number [facility] [address] [place] [address], [facility] [phone] from Last [address] [employer] [address]
--- OUTSIDE RECORDS SUMMARY | 2024-05-10 17:57 | XMS_ITS ---
Author Name [facility] Organization Unknown Results Test Name/Text Value Interpretation Date Range Source Calcium SerPl-mCnc 9.6mg/dL Normal [id number] 8.5 - 10 .1 [facility] BUN SerPl-mCnc 12mg/dL Normal [id number] 7 - 18 [facility] Anion Gap3 SerPl-sCnc 4mmol/L Below low normal [id number] 5 - 15 [facility] BKR CREATININE DELTA Normal [id number] [facility] Creat SerPl-mCnc 0.94mg/dL Normal [id number] 0.7 - 1.3 [facility] HCO3 SerPl-sCnc 26mmol/L Normal [id number] 21 - 32 [facility] Chloride SerPl-sCnc 105mmol/L Normal [id number] 98 - 10 7 [facility] GFR/BSA.pred SerPlBld NFY-NRA-HeMUuk 60mL/min/1.73 m2 Normal [id number] - [facility] Potassium SerPl-sCnc 3.7mmol/L Normal [id number] 3.5 - 5.1 [facility] Glucose SerPl-mCnc 316mg/dL Above high normal [id number] 65 - 110 [facility] Sodium SerPl-sCnc 135mmol/L Below low normal [id number] 13 6 - 145 [facility] Monocytes # Bld Auto 0.76l2771/uL Normal [id number] 0 - 1 [facility] nRBC/100 WBC Bld Auto-Rto 0% Normal [id number] 0 - 1 [facility] Eosinophil # Bld Auto 0.81v7796/uL Normal [id number] 0 - 1 [facility] nRBC # Bld Auto 2w0866/uL Normal [id number] 0 - 1 [facility] Neutrophils # Bld Auto 2.2k8460/uL Normal [id number] 2 - 7.6 [facility] MCHC RBC Auto-mCnc 34.4g/dL Normal [id number] 31 - 36 [facility] Monocytes/leuk NFr Bld Auto 11.9% Normal [id number] 4 - 12 [facility] Basophils # Bld Auto 0.70w0866/uL Normal [id number] 0 - 1 [facility] WBC # Bld Auto 4.5t7984/uL Normal [id number] 4 - 11 [facility] Hct VFr Bld Auto 43.9% Normal [id number] 38.5 - 50 [facility] RDW RBC Auto-Rto 12.4% Normal [id number] 11 - 15 [facility] PMV Bld Auto 9.1fL Normal [id number] 8 - 12 [facility] Eosinophil/leuk NFr Bld Auto 4.4% Normal [id number] 0 - 5 [facility] MCH RBC Qn Auto 31.7pg Normal [id number] 27 - 33 [facility] Basophils/leuk NFr Bld Auto 0.7% Normal [id number] 0 - 1.4 [facility] Lymphocytes # Bld Auto 1.26c7651/uL Normal [id number] 0.6 - 3.7 [facility] RBC # Bld Auto 4.76M/uL Normal [id number] 4 - 6 [facility] Neutrophils/leuk NFr Bld Auto 56% Normal [id number] 39 - 72 [facility] Imm Granulocytes # Bld Auto 0.45i6439/uL Normal [id number] 0 - 0.3 [facility] Platelet # Bld Auto 608l1246/uL Normal [id number] 150 - 420 [facility] MCV RBC Auto 92.2fL Normal [id number] 80 - 100 [facility] Lymphocytes/leuk NFr Bld Auto 26.5% Normal [id number] 17 - 50 [facility] Imm Granulocytes/leuk NFr Bld Auto 0.5% Normal [id number] 0 - 1 [facility] Hgb Bld-mCnc 15.1g/dL Normal [id number] 13.2 - 17.1 [facility] History of Medication Use Medication Directions Dispensed Refills Start Date End Date Stat us OZEMPIC 2 mg/dose (8 mg/3 mL) pen injector INJECT 2 MG (0.75 ML) SUBCUTANEOUSLY EVERY WEEK 01/13/2024 active Problems Problem Status Onset Date Problem Type Date of Resoluti on Source Parotitis, acute active EncounterDiagnosisAct CT_YALEUC
== END ==
LOC: HO.CARD 14:51
PROVIDERS: PCP Internal Medicine; Visit Provider Internal Medicine Cardiovascular Disease
DX: I42.8 Other cardiomyopathies (principal)
CPT/HCPCS: 93306; Q9957

== ENCOUNTER → 2024-05-10 14:57 | Outpatient (BNV) | payer BC, SELFPAY | PROVIDERS: PCP Internal Medicine; Visit Provider Internal Medicine Cardiovascular Disease | DX: I42.2 Other hypertrophic cardiomyopathy (principal); Z95.810 Presence of automatic (implantable) cardiac defibrillator | CPT/HCPCS: 93306 ==

== ENCOUNTER → 2024-05-11 23:59 | Outpatient (BNV) | payer BC, SELFPAY ==
--- NOTE | 2024-05-17 15:08 | MHC.OFFVIS ---
Intake Visit Reasons: Remote HF monitoring- [employer] Allergies morphine [Morphine] Allergy (Mild, Verified 03/23/24 14:48) FLUSH, SHORT OF BREATH SEASONAL ALLERGIES Allergy (Unknown, Uncoded 03/23/24 14:48) SHORT OF BREATH [facility] Medical History (Updated 03/23/24 @ 15:36 by Ondina France MD) Obesity Back pain of lumbar region with sciatica Pain in right femur Hip pain, right Balanitis Change in bowel function Diarrhea Morbid obesity Diabetes type 2, uncontrolled Fatty liver Ventricular tachycardia Peripheral vascular disease Vitamin D deficiency GERD (gastroesophageal reflux disease) Hypercholesterolemia Left bundle branch block AZEEM (obstructive sleep apnea) HTN (hypertension) Biventricular ICD (implantable cardioverter-defibrillator) in place Nonischemic cardiomyopathy Surgical History History of permanent cardiac pacemaker placement History of cardiac catheterization Family History Father CHF (congestive heart failure) Diabetes Mother No problems noted. Social History Housing: House Alcohol intake: current Alcohol intake frequency: a few times a week Patient Tobacco Use Status: Never used Tobacco e-Cigarette/Vaping Use: Never Used Second Hand Smoke Exposure: No service: No Current occupational status: employed Cognitive needs: No Hearing needs: No Vision needs: Yes (reading glasses) Office Procedures Cardiac Device Check Cardiac Device Check Details: Remote heart failure report generated 05/11/2024. Heart failure reported suboptimal due to intermediate connection. There is no obvious signs of fluid overload [id number] Cardiac Device Interrogation, cardio physiologic monitor Procedure code (CPT) selection complete Assessment & Plan Assessment & Plan (1) Biventricular ICD (implantable cardioverter-defibrillator) in place: Comment: September 2019 Code(s): Z95.810 - Presence of automatic (implantable) cardiac defibrillator Category: Medical Plan: See above Coding Level of Care Code Procedure Only Diagnoses Biventricular ICD (implantable cardioverter-defibrillator) in place Z95.810 CPT Codes Cardiac Device Check - Cardiac Device 15: [id number] Cardiac Device Interrogation, cardio physiologic monitor ([id number])
== END ==
PROVIDERS: PCP Internal Medicine; Visit Provider Internal Medicine Cardiovascular Disease
DX: Z45.02 Encounter for adjustment and management of automatic implantable cardiac defibrillator (principal)
CPT/HCPCS: 93297

== ENCOUNTER 2024-05-29 14:00 | Outpatient (AMB) | payer BC, SELFPAY ==
--- NOTE | 2024-05-29 14:04 | MHC.OFFVIS ---
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 Allergies morphine [Morphine] Allergy (Mild, Verified 03/23/24 14:48) FLUSH, SHORT OF BREATH SEASONAL ALLERGIES Allergy (Unknown, Uncoded 03/23/24 14:48) SHORT OF BREATH Medication List - Last Reconciled 05/29/24 by Papi Peterson MD albuterol sulfate 90 mcg/actuation (Ventolin HFA) 2 puffs inhalation Q6H PRN [CPAP full face mask medium size 13 cm H2O humidified Air ] cyclobenzaprine 10 mg PO TID PRN empagliflozin 25 mg PO DAILY fexofenadine 180 mg PO DAILY PRN fluticasone propionate 50 mcg/actuation (Flonase Allergy Relief) 2 sprays intranasal DAILY furosemide 40 mg PO DAILY PRN lisinopril 40 mg PO DAILY lovastatin 40 mg PO DAILY metformin 1,000 mg PO BID metoprolol succinate ER 150 mg (1.5 x 100 mg) PO DAILY 90 days semaglutide 2 mg (0.75 mL) subcut QWEEK sildenafil 50 mg PO DAILY PRN HPI Comments Details: Mark comes for follow-up. He recently has suffering from upper respiratory symptoms which is suffered for long period time. Now he is complaining of lower back thoracic cage pain especially with deep breathing. He said he feels miserable with it. He has not had any recent muscular injury. Comes for evaluation. Denies any significant change in his cardiac symptoms. Denies any worsening shortness of breath, orthopnea, PND. No lightheadedness, syncope, ICD discharge. Denies any prolonged palpitations. [facility] Medical History Obesity Back pain of lumbar region with sciatica Pain in right femur Hip pain, right Balanitis Change in bowel function Diarrhea Morbid obesity Diabetes type 2, uncontrolled Fatty liver Ventricular tachycardia Peripheral vascular disease Vitamin D deficiency GERD (gastroesophageal reflux disease) Hypercholesterolemia Left bundle branch block AZEEM (obstructive sleep apnea) HTN (hypertension) Biventricular ICD (implantable cardioverter-defibrillator) in place Nonischemic cardiomyopathy Surgical History History of permanent cardiac pacemaker placement History of cardiac catheterization Family History Father CHF (congestive heart failure) Diabetes Mother No problems noted. Social History Housing: House Alcohol intake: current Alcohol intake frequency: a few times a week Patient Tobacco Use Status: Never used Tobacco e-Cigarette/Vaping Use: Never Used Second Hand Smoke Exposure: No service: No Current occupational status: employed Cognitive needs: No Hearing needs: No Vision needs: Yes (reading glasses) Review of Systems Const Denies chills, Denies fatigue, Denies fever(s), Denies frequent falls, Denies weakness, Denies weight gain and Denies weight loss ENT Denies dizziness Card Denies chest pain, Denies leg edema, Denies lightheadedness, Denies palpitations, Denies dyspnea, Denies dyspnea on exertion, Denies orthopnea and Denies other (loss of consciousness) Resp Denies cough, Denies dyspnea and Denies dyspnea on exertion GI Denies hematochezia and Denies change in stool character Musc Denies abnormal gait, Denies muscle weakness, Denies numbness, Denies radiating pain into limb and Denies tingling Neuro Denies abnormal gait, Denies dizziness, Denies frequent falls, Denies numbness, Denies tingling and Denies weakness Endo Denies fatigue and Denies palpitations Physical Exam Vital Signs: Last Vital Signs Pulse 94 05/29/24 14:05 BP 133/69 05/29/24 14:05 BMI result Body Mass Index 39.4 Const General: cooperative, comfortable, no acute distress, alert, awake and Physically active Nutritional Appearance: obese Orientation/consciousness: patient oriented x3 Limitations: no limitations Neck Neck: Yes trachea midline, Yes supple and Yes no JVD Resp Effort & Inspection: normal respiratory effort Auscultation: clear to auscultation bilaterally Cardio Jugular venous distension: no JVD Palpation: normal PMI Rate: regular rate Rhythm: regular rhythm Heart sounds: S1 normal heart sound present, S2 normal heart sound present and Other heart sounds present (S4 present) GI Inspection: Yes obesity Auscultation: normal bowel sounds Skin General skin exam: no rashes or lesions noted Neuro General: patient oriented x3 and no focal motor deficits Extrem General: Yes no clubbing, cyanosis or edema Psych Appearance: grossly normal Office Procedures Cardiac Device Check Cardiac Device Check Details: Biventricular Biotronik ICD in place. Programmed in DDDR at 60 beats per minute. Biventricular pacing 98% of the time. One episode of VT noted in the 210 beats per minute range which was treated with antitachycardia pacing. There were no shocks delivered. VT zone was reprogrammed from 200-220 and VF zone was reprogrammed to 220 beats per minute and above. Therapies were reprogrammed as well. Atrial and biventricular pacing thresholds adequate. Atrial and ventricular sensing is adequate. Pacing and shock lead impedance is stable. Battery life is at 60% [id number] Cardiac Device Check, multi lead implantable defibrillator Procedure code (CPT) selection complete Assessment & Plan Assessment & Plan (1) Pleuritic chest pain: Code(s): R07.81 - Pleurodynia Plan: Pleuritic chest pain after recent upper respiratory infection could represent pleuritis or pericarditis. Will obtain inflammatory markers and treat accordingly. Also suggest a chest x-ray to rule out any significant pleural effusion. Further treatment based on the findings. (2) Nonischemic cardiomyopathy: Comment: 04/27/2023 Low normal LV ejection fraction of 50-55% with mild LVH with grade 1 diastolic dysfunction 2. Normal cardiac valvular Dopplers 3. Normal RV systolic pressure 4. Mildly dilated ascending aorta at 4 cm 5. No pericardial effusion Code(s): I42.8 - Other cardiomyopathies Category: Medical Plan: Prior nonischemic cardiomyopathy with improved LV ejection fraction with neurohormonal modulators with metoprolol as well as lisinopril. No signs or symptoms of heart failure. Continue the same. Also has improved with Bi V pacing. Continue aggressive risk factor modification with regular physical exercise as well as weight reduction. Continue CPAP therapy. Importance of good blood pressure control was discussed. (3) Biventricular ICD (implantable cardioverter-defibrillator) in place: Comment: September 2019 Code(s): Z95.810 - Presence of automatic (implantable) cardiac defibrillator Category: Medical Plan: Biventricular ICD in place, working well. Reprogrammed for adequate functioning especially with episode of nonsustained VT. Will continue monitor by cardiac telemetry both for heart failure as well as device and arrhythmias. Follow up in the clinic in 6 months time, sooner p.r.n.. Thank you for allowing me to partake in his care Orders: Orders XR chest 2V 05/29/24 R07.81 - Pleurodynia Erythrocyte Sedimentation Rate 05/29/24 R07.81 - Pleurodynia Coding Level of Care Code Est Pt Level 4 (14936) Complex EM visit Add On G2211 Diagnoses Pleuritic chest pain R07.81 Nonischemic cardiomyopathy I42.8 Biventricular ICD (implantable cardioverter-defibrillator) in place Z95.810 CPT Codes Cardiac Device Check - Cardiac Device 6: 18290-WL Cardiac Device Check, multi lead implantable defibrillator ([id number])
[2024-05-29 14:05] VITALS: BP 133/69; PULSE 94; BMI 39.4
== END 2024-05-29 15:02 | disposition home or self-care (01) ==
PROVIDERS: PCP Internal Medicine; Visit Provider Internal Medicine Cardiovascular Disease
DX: R07.81 Pleurodynia (principal); I42.8 Other cardiomyopathies; Z95.810 Presence of automatic (implantable) cardiac defibrillator
CPT/HCPCS: 93284; 99214

== ENCOUNTER 2024-05-29 14:00 | Outpatient (REF) | payer BC, SELFPAY ==
--- NOTE | ~2024-05-29 | XR_ITS ---
EXAMINATION: XR CHEST 2 VIEWS HISTORY: R07.81 - Pleurodynia COMPARISON: Comparison is made with the prior examination dated 10/28/2020. FINDINGS: PA and lateral views of the chest are submitted. A left-sided dual-chamber pacemaker is unchanged in position. There are low lung volumes. The lungs are clear. There is no pleural effusion, pneumothorax, or pulmonary vascular congestion. The heart is normal in size. There is degenerative disc disease of the spine. XR/XR chest 2V IMPRESSION: Low lung volumes. No acute cardiopulmonary abnormality. Electronically signed by: Jasvir Maynard MD 05/30/2024 08:53 AM EDT
[2024-05-29 17:33] LABS: Erythrocyte Sedimentation Rate 17 MM/HR (0-15)
== END 2024-05-29 14:01 | disposition home or self-care (01) ==
LOC: HO.LAB 14:00
PROVIDERS: PCP Internal Medicine; Visit Provider Internal Medicine Cardiovascular Disease
DX: R07.81 Pleurodynia (principal)
CPT/HCPCS: 36415; 71046; 85652

== ENCOUNTER → 2024-05-29 16:10 | Outpatient (BNV) | payer BC, SELFPAY | PROVIDERS: PCP Internal Medicine; Visit Provider Radiology Diagnostic Radiology | DX: R07.81 Pleurodynia (principal); Z95.0 Presence of cardiac pacemaker | CPT/HCPCS: 71046 ==

== ENCOUNTER → 2024-05-30 23:59 | Outpatient (BNV) | payer BC, SELFPAY ==
--- NOTE | 2024-05-30 16:27 | MHC.OFFVIS ---
Intake Visit Reasons: Remote HF monitoring- [employer] Allergies morphine [Morphine] Allergy (Mild, Verified 03/23/24 14:48) FLUSH, SHORT OF BREATH SEASONAL ALLERGIES Allergy (Unknown, Uncoded 03/23/24 14:48) SHORT OF BREATH [facility] Medical History (Updated 03/23/24 @ 15:36 by Ondina France MD) Obesity Back pain of lumbar region with sciatica Pain in right femur Hip pain, right Balanitis Change in bowel function Diarrhea Morbid obesity Diabetes type 2, uncontrolled Fatty liver Ventricular tachycardia Peripheral vascular disease Vitamin D deficiency GERD (gastroesophageal reflux disease) Hypercholesterolemia Left bundle branch block AZEEM (obstructive sleep apnea) HTN (hypertension) Biventricular ICD (implantable cardioverter-defibrillator) in place Nonischemic cardiomyopathy Surgical History History of permanent cardiac pacemaker placement History of cardiac catheterization Family History Father CHF (congestive heart failure) Diabetes Mother No problems noted. Social History Housing: House Alcohol intake: current Alcohol intake frequency: a few times a week Patient Tobacco Use Status: Never used Tobacco e-Cigarette/Vaping Use: Never Used Second Hand Smoke Exposure: No service: No Current occupational status: employed Cognitive needs: No Hearing needs: No Vision needs: Yes (reading glasses) Office Procedures Cardiac Device Check Cardiac Device Check Details: Remote ICD report generated 05/30/2024. ICD function is adequate [id number] Cardiac Interrogation, implant defibrillator w/interim Procedure code (CPT) selection complete Assessment & Plan Assessment & Plan (1) Biventricular ICD (implantable cardioverter-defibrillator) in place: Comment: September 2019 Code(s): Z95.810 - Presence of automatic (implantable) cardiac defibrillator Category: Medical Plan: See above Coding Level of Care Code Procedure Only Diagnoses Biventricular ICD (implantable cardioverter-defibrillator) in place Z95.810 CPT Codes Cardiac Device Check - Cardiac Device 13: [id number] Cardiac Interrogation, implant defibrillator w/interim ([id number])
== END ==
PROVIDERS: PCP Internal Medicine; Visit Provider Internal Medicine Cardiovascular Disease
DX: Z45.02 Encounter for adjustment and management of automatic implantable cardiac defibrillator (principal)
CPT/HCPCS: 93295

== ENCOUNTER 2024-06-05 14:23 | Outpatient (AMB) | payer BC, SELFPAY ==
[2024-06-05 14:25] VITALS: BP 134/78; PULSE 87; TEMP 36.1; O2SAT 98; BMI 40.3
--- NOTE | 2024-06-05 14:25 | MHC.PC.OV ---
Vital Signs 06/05/24 14:25 Height 5 ft 9 in Weight 273 lb 4 oz BMI 40.3 BP 134/78 Blood Pressure Location Lt brachial Position Sitting Pulse 87 Pulse Source Pulse Oximeter Temp 97.0 F Temp Source Temporal Artery Scan Pulse Oximetry (%) 98 Oxygen Delivery Method Room Air Intake Visit Reasons: neuropathy rt foot Allergies morphine [Morphine] Allergy (Mild, Verified 06/05/24 14:28) FLUSH, SHORT OF BREATH SEASONAL ALLERGIES Allergy (Unknown, Uncoded 06/05/24 14:28) SHORT OF BREATH Medication List - Last Reconciled 06/05/24 by Ondina France MD albuterol sulfate 90 mcg/actuation (Ventolin HFA) 2 puffs inhalation Q6H PRN [CPAP full face mask medium size 13 cm H2O humidified Air ] cyclobenzaprine 10 mg PO TID PRN empagliflozin 25 mg PO DAILY fexofenadine 180 mg PO DAILY PRN fluticasone propionate 50 mcg/actuation (Flonase Allergy Relief) 2 sprays intranasal DAILY furosemide 40 mg PO DAILY PRN lisinopril 40 mg PO DAILY lovastatin 40 mg PO DAILY metformin 1,000 mg PO BID metoprolol succinate ER 150 mg (1.5 x 100 mg) PO DAILY 90 days semaglutide 2 mg (0.75 mL) subcut QWEEK sildenafil 50 mg PO DAILY PRN Tobacco use date assessed: 06/05/24 Dental Screening Dental Screen Date: 06/05/24 Did you have a dental visit in the last 12 months?: No Did you have a dental problem in the last 6 months where you did not have access to dental care?: No Was dental information given to patient?: Patient has dentist [facility] Medical History Obesity Back pain of lumbar region with sciatica Pain in right femur Hip pain, right Balanitis Change in bowel function Diarrhea Morbid obesity Diabetes type 2, uncontrolled Fatty liver Ventricular tachycardia Peripheral vascular disease Vitamin D deficiency GERD (gastroesophageal reflux disease) Hypercholesterolemia Left bundle branch block AZEEM (obstructive sleep apnea) HTN (hypertension) Biventricular ICD (implantable cardioverter-defibrillator) in place Nonischemic cardiomyopathy Surgical History History of permanent cardiac pacemaker placement History of cardiac catheterization Family History Father CHF (congestive heart failure) Diabetes Mother No problems noted. Social History Housing: House Alcohol intake: current Alcohol intake frequency: a few times a week Patient Tobacco Use Status: Never used Tobacco e-Cigarette/Vaping Use: Never Used Second Hand Smoke Exposure: No service: No Current occupational status: employed Cognitive needs: No Hearing needs: No Vision needs: Yes (reading glasses) Questionnaire PHQ-9 Over the last 2 weeks, how often have you been bothered by any of the following problems? 1. Little interest or pleasure in doing things: not at all 2. Feeling down, depressed, or hopeless: not at all 3. Trouble falling or staying asleep, or sleeping too much: not at all 4. Feeling tired or having little energy: not at all 5. Poor appetite or overeating: not at all 6. Feeling bad about yourself - or that you are a failure or have let yourself or your family down: not at all 7. Trouble concentrating on things, such as reading the newspaper or watching television: not at all 8. Moving or speaking so slowly that other people could have noticed. Or the opposite - being so fidgety or restless that you have been moving around a lot more than usual: not at all 9. Thoughts that you would be better off or of hurting yourself in some way: not at all Total score: 0 Depression Screening Interpretation: Negative Depression Screening Done: Yes Source: Developed by Drs. Jasvir Salazar, Jory Sanchez, Akira Fairbanks and colleagues, with an educational saloni from [employer]. Thrive Questionnaire Date Thrive assessed: 03/23/24 I am a: Patient What is your living situation today?: I have a steady place to live Within the past 12 months, did the food you bought not last and you didn't have the money to get more?: Never true Within the past 12 months, did you worry whether your food would run out before you got money to buy more?: Never true Do you have trouble paying for medicines?: No Do you have trouble getting transportation to medical appointments?: No Do you have trouble paying your heating and electricity bill?: No Do you have trouble taking care of your child, family member or friend?: No Do you have trouble with day-to-day activities such as bathing, preparing meals, shopping, managing finances, etc.?: No Are you currently unemployed and looking for a job?: No Are you interested in more education?: No Please select the resources that you would like help with: None Currently or been in a relationship where the following occur: No concerns reported THRIVE Score: 0 AUDIT C Alcohol Use Questionnaire (AUDIT-C) 1. How often do you have a drink containing alcohol?: 2-3 times a week 2. How many drinks containing alcohol do you have on a typical day when you are drinking?: 1 or 2 Total Score: 3 VERONICA-7 AMB Questionnaire VERONICA-7 Date VERONICA - 7 assessed: 03/23/24 Feeling nervous, anxious, or on edge: 0 = Not at all Not being able to stop or control worryin = Not at all Worrying too much about different things: 0 = Not at all Trouble relaxin = Not at all Being so restless that it is hard to sit still: 0 = Not at all Becoming easily annoyed or irritable: 0 = Not at all Feeling afraid as if something awful might happen: 0 = Not at all Total VERONICA-7 score (0-4 normal; 5-9 mild; 10-14 moderate; 15-21 severe): 0 Source: Developed by Drs. Jasvir Salazar, Jory Sanchez, Akira Fairbanks and colleagues, with an educational saloni from [employer]. Physical exam (Primary Care) Vital Signs: Last Vital Signs Temp 97.0 F 06/05/24 14:25 Pulse 87 06/05/24 14:25 BP 134/78 06/05/24 14:25 Pulse Ox 98 06/05/24 14:25 Oxygen Delivery Method Room Air 06/05/24 14:25 BMI result Body Mass Index 40.3 Tobacco/Smoking Status: Tobacco use Status Tobacco use date assessed 06/05/24 06/05/24 14:30 Patient Tobacco Use Status Never used Tobacco 06/05/24 14:30 e-Cigarette/Vaping Use Never Used 06/05/24 14:30 PHQ-9: PHQ-9 Score PHQ-9: Total score 0 06/05/24 14:57 Depression Screening Interpretation: Negative Thrive Assessment: Date of Thrive Assessment Date Thrive assessed 03/23/24 06/05/24 14:30 Currently or been in a relationship where the following occur: No concerns reported Const General: alert; No acute distress Eyes Conjunctivae: conjunctivae normal Resp Auscultation: clear to auscultation bilaterally Cardio Rate: regular rate Rhythm: regular rhythm GI Inspection: Yes normal to inspection Extrem General: Yes normal to inspection and No edema Coding Level of Care Code Est Pt Level 4 (47328) Complex EM visit Add On G2211 Diagnoses Thoracic aortic aneurysm I71.20 Morbid (severe) obesity due to excess calories E66.01 Type 2 diabetes mellitus with hyperglycemia, without long-term current use of insulin E11.65 Diabetes mellitus correction insulin use: without 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 Normal cardiac valvular Dopplers 3. Normal RV systolic pressure 4. Mildly dilated ascending aorta at 4 cm 5. No pericardial effusion Code(s): I71.20 - Thoracic aortic aneurysm, without rupture, unspecified Category: Medical Plan: discussed with the patient the need to monitor the ascending aorta with echocardiogram (2) Morbid (severe) obesity due to excess calories: Code(s): E66.01 - Morbid (severe) obesity due to excess calories Category: Medical Plan: Diet and exercise (3) Type 2 diabetes mellitus with hyperglycemia: Comment: Dr. Streeter Code(s): E11.65 - Type 2 diabetes mellitus with hyperglycemia Category: Medical Qualifiers: Diabetes mellitus regional intermodal truck driver insulin use: without correction use Qualified Code(s): E11.65 - Type 2 diabetes mellitus with hyperglycemia Plan: Decrease the amount of carbohydrate intake, pasta, bread, rice and potatoes are all sugar and that is aside from all the sweet stuff, remember that fruits are good but they are Sweet also. Hemoglobin A1c goal of less than 6.5 patient on Jardiance 25 mg once a day metformin a 1000 mg twice a day. Patient has been placed on semaglutide (4) GERD (gastroesophageal reflux disease): Code(s): K21.9 - Gastro-esophageal reflux disease without esophagitis Category: Medical Qualifiers: Esophagitis presence: without esophagitis Qualified Code(s): K21.9 - Gastro-esophageal reflux disease without esophagitis Plan: Avoid the foods that causes that usually spicy foods, tomato products, juices, coffee, soda and foods that your sensitive to. After eating do not lie down, allow 3-4 hours before in lie down. And keep the head of bed above 30 degrees to avoid the acid from going up. (5) Hypercholesterolemia: Code(s): E78.00 - Pure hypercholesterolemia, unspecified Category: Medical Plan: Avoid fried foods, chicken skin, eggs, butter margarine, pastries and meat. Be it pork or beef they have a lot of cholesterol LDL goal of less than 70 and triglyceride of less than 150 patient on lovastatin 40 mg once a day need blood work (6) Nonischemic cardiomyopathy: Comment: 04/27/2023 Low normal LV ejection fraction of 50-55% with mild LVH with grade 1 diastolic dysfunction 2. Normal cardiac valvular Dopplers 3. Normal RV systolic pressure 4. Mildly dilated ascending aorta at 4 cm 5. No pericardial effusion Code(s): I42.8 - Other cardiomyopathies Category: Medical Plan: continue to follow up with Cardiology, has the ICD monitored by Cardiology (7) HTN (hypertension): Code(s): I10 - Essential (primary) hypertension Category: Medical Qualifiers: Hypertension type: essential hypertension Qualified Code(s): I10 - Essential (primary) hypertension Plan: Continue with blood pressure medication. Decrease salt intake and exercis (8) AZEEM (obstructive sleep apnea): Comment: CPAP use Code(s): G47.33 - Obstructive sleep apnea (adult) (pediatric) Category: Medical Plan: continue to use the CPAP more than 4 hours (9) Peripheral neuropathic pain: Code(s): M79.2 - Neuralgia and neuritis, unspecified Category: Medical Plan: advised aspercream and decliner work up for now Plan History of Present Illness The patient is a 58-year-old male presenting with follow-up on chronic conditions including diabetes mellitus, obstructive sleep apnea, hypertension, and nonischemic cardiomyopathy. There is a recent gain of 7 pounds since May and his hemoglobin A1c is elevated at 8.5% as of March. He is managed on Jardiance and Metformin, and has commenced semaglutide treatment. There is also a chronic elevation in liver enzymes and hypercholesterolemia with treatment goals laid out. His hypertension is actively monitored, and for obstructive sleep apnea, he adheres to CPAP usage effectively. Cardiovascular monitoring is ongoing with a recent echocardiogram to assess an aneurysm, which is stable. The patient has been evaluated for arthritis-related spine pain and neuropathy, potentially stemming from diabetes. The neuropathic symptoms started after a foot injury and have resulted in ongoing numbness on the right side. Parotid gland infection was also treated earlier with antibiotics post CT scan evaluation. Health Maintenance - Monitor hemoglobin A1c with a goal of less than 6.5%. - Regular exercise and dietary modifications for weight and cholesterol management. - Monitor LDL cholesterol to be less than 70 mg/dL and triglycerides to less than 150 mg/dL. - Continual use of CPAP device for obstructive sleep apnea. - Conduct periodic echocardiograms for thoracic aortic aneurysm monitoring. - Regular ICD checks and cardiology follow-up. Social History Review of Systems - Musculoskeletal: Reports back pain and arthritis symptoms. - Neurological: Reports numbness and potential neuropathy. - Cardiovascular: Denies shortness of breath, dizziness. - Respiratory: Denies current respiratory symptoms. - Gastrointestinal: Denies GERD symptoms beyond noted diagnosis. - ENT: Reports previous parotid gland infection. - General: Reports recent 7-pound weight gain. Physical Exam Results - Labs: Elevated hemoglobin A1c of 8.5% (March), elevated liver enzymes chronically, and elevated sedimentation rate. - Tests: Recent echocardiogram showed stability of aneurysm size. - Diagnostics: CT scan confirmed prior parotid gland swelling. Plan 1. 5%. Lifestyle changes are encouraged for weight and cholesterol management, with Lovastatin controlling lipid panels. Hypertension continues under cardiology guidance with CPAP consistently used for sleep apnea. The ICD and thoracic aneurysm are under regular review. Potential neuropathy may require nerve testing, should symptoms worsen, while parotid gland considerations remain as observational unless recurrence occurs.: Patient was informed and verbally consented to the use of an ambient scribe for clinic note documentation during this visit. Discussion Notes I discussed with the patient the significance of managing his chronic conditions including the ongoing need for blood glucose control and regular follow-up for his numerous comorbidities. Management strategies were emphasized, including medication adherence, weight management, and lifestyle changes. The ongoing cardiovascular monitoring, including ICD evaluations and echocardiogram scheduling in relation to his aortic aneurysm, was reviewed. Concerns regarding the side effects of Motrin, particularly on renal function, were addressed, and alternatives for managing arthritis pain were considered. The potential progression of neuropathy was explained with the possibility of diagnostic nerve testing if symptoms present aggressively. Additionally, discussions on monitoring for recurrence of parotid gland infection were held, including prior interventions. I ensured understanding and agreement with the proposed management strategies, emphasizing the importance of adherence and follow-up. Patient Instructions - Maintain medication regimen as prescribed, including Jardiance, Metformin, Semaglutide, and Lovastatin. - Regularly monitor blood glucose and aim for a hemoglobin A1c of less than 6.5%. - Adhere to dietary modifications and implement regular exercise as advised. - Ensure consistent CPAP usage for obstructive sleep apnea. - Pursue follow-up imaging and cardiac checkups as scheduled. - Monitor cholesterol with a focus on lowering LDL and triglyceride levels. - Observe for any recurrence of parotid gland symptoms and report promptly. - Consider seeking additional pain management options if required. - Monitor symptoms for potential neuropathy progression and discuss further testing if necessary. Orders: Referrals Podiatry Referral E11.65 - Type 2 diabetes mellitus with hyperglycemia, M79.2 - Neuralgia and neuritis, unspecified
--- OUTSIDE RECORDS SUMMARY | 2024-06-05 16:15 | XMS_ITS | Clinical Summary ---
Author Organization [address] [place] [address] Care Team Providers Care Collection Team Lead Name Role Phone Unavailable Primary Care Provider [...] EST Emergency [facility] [address] [place] [address] Acute parotitis (Primary Dx) Discharge Disposition: Home or Self Care 03/25/2024 Travel 03/24/2024 4:20 PM EST Office Visit [facility] [address] [place] [address] Yamile Malcolm, SKINNY Parotitis, acute (Primary Dx) [...] 12/04/2015 Influenza vaccine 10/07/2023 Covid-19 vaccine series (1 - season) 2023 Diabetes screening 03/25/2027 03/25/2024 Pneumococcal Vaccine (50+ ye ars) (1 of 1 - PCV) 2030 RSV Immunization (1 - 1-dose 75+ series) 2040 Meningococcal Vaccine Aged Out No [...] DOSE ACQUIRED DURING SCAN: 386.02 mGy.cm. [facility] Imaging Department strives for high quality imaging [...] DOSE ACQUIRED DURING SCAN: 386.02 mGy.cm. [facility] Imaging Department strives for high qualityimaging with [...] signed by: Ashanti Gallo MD [facility] ORDERABLES Final Result * (ABNORMAL) Basic metabolic panel (03/25/2024 1:37 PM EST) Glucose 316(H) 65 - 110 mg/dL 03/25/2024 2:22 PM [facility] Comment: Non-fasting: ??65-110 mg/dL Fasting (minimum 6 hrs): ??65-99 mg/dL BUN 12 7 - 18 mg/dL 03/25/2024 2:22 PM [facility] Creatinine 0.94 0.70 - 1.30 mg/dL 03/25/2024 2:22 PM [facility] Sodium 135(L) 136 - 145 mmol/L 03/25/2024 2:22 PM [facility] Potassium 3.7 3.5 - 5.1 mmol/L 03/25/2024 2:22 PM [facility] Chloride 105 98 - 107 mmol/L 03/25/2024 2:22 PM [facility] CO2 26 21 - 32 mmol/L 03/25/2024 2:22 PM [facility] Anion Gap 4(L) 5 - 15 mmol/L 03/25/2024 2:22 PM [facility] Calcium 9.6 8.5 - 10.1 mg/dL 03/25/2024 2:22 PM [facility] eGFR (Creatinine) >60 >=60 mL/min/1.7 3m2 03/25/2024 2:22 PM [facility] Comment: [facility] utilizes CKD-EPI Creatinine 2020 to report eGFR. Values < 60 mL/min/1.73 m2 may indicate CKD if present for more than three months AND creatinine is at steady state. The eGFR provides a rough estimate of kidney function. For further guidance, please refer to the CKD: Adult Studio Set Up Worker Signature pathway. Creatinine Delta 03/25/2024 2:22 PM [facility] Comment:No previous creatini ne <5.00 mg/dL is available within the previous 12 months to calculate a delta creatinine. Blood Venipuncture / Unknown 03/25/2024 1:37 PM EST 03/25/2024 1:40 PM EST us [facility] ORDERABLES Final Resu lt [facility] [address] [facility] [place] [address], [facility] [phone] * CBC auto differential (03/25/2024 1:37 PM [...] - 36.0 g/dL 03/25/2024 1:43 PM EST [facility] RDW-CV 12.4 11.0 - 15.0 [...] 0.0 - 1.0 % 03/25/2024 1:43 PM [facility] nRBC 0.0 0.0 - 1.0 % 03/25/2024 1:43 PM [facility] Absolute Lymphocyte Count 1.09 0.60 - 3.70 x 1000/??L 03/25/2024 1:43 PM [facility] Monocyte Absolute Count 0.49 0.00 - 1.00 x 1000/??L 03/25/2024 1:43 PM [facility] Eosinophil Absolute Count 0.18 0.00 - 1.00 x 1000/??L 03/25/2024 1:43 PM [facility] Basophil Absolute Count 0.03 0.00 - 1.00 x 1000/??L 03/25/2024 1:43 PM [facility] Absolute Immature Granulocyte Count 0.02 0.00 - 0.30 x 1000/??L 03/25/2024 1:43 PM [facility] Absolute nRBC 0.00 0.00 - 1.00 x 1000/??L 03/25/2024 1:43 PM [facility] ANC (Abs Neutrophil Count) 2.30 2.00 - 7.60 x 1000/??L 03/25/2024 1:43 PM [facility] Blood Venipuncture / Unknown 03/25/2024 1:37 PM EST 03/25/2024 1:40 PM EST [facility] ORDERABLES Final Resu lt Performing Organization Address City/State/[facility] Co de Phone Number [facility] [address] [place] [address], [facility] [phone] from Last 3 Months Insurance [place] [address] [address] [place] [address]
== END 2024-06-05 15:12 | disposition home or self-care (01) ==
LOC: HO.HMCH 14:24
PROVIDERS: PCP Internal Medicine; Visit Provider Internal Medicine
DX: I71.20 Thoracic aortic aneurysm, without rupture, unspecified (principal); E66.01 Morbid (severe) obesity due to excess calories; E11.65 Type 2 diabetes mellitus with hyperglycemia; Z68.41 Body mass index [BMI] 40.0-44.9, adult; I42.8 Other cardiomyopathies; K21.9 Gastro-esophageal reflux disease without esophagitis; E78.00 Pure hypercholesterolemia, unspecified; I10 Essential (primary) hypertension; G47.33 Obstructive sleep apnea (adult) (pediatric); M79.2 Neuralgia and neuritis, unspecified

== ENCOUNTER → 2024-06-05 14:23 | Outpatient (BNVA) | payer BC, SELFPAY | PROVIDERS: PCP Internal Medicine; Visit Provider Internal Medicine ==

== ENCOUNTER → 2024-06-09 23:59 | Outpatient (BNV) | payer BC, SELFPAY ==
--- NOTE | 2024-06-12 13:25 | MHC.OFFVIS ---
Intake Visit Reasons: Remote HF monitoring- [employer] Allergies morphine [Morphine] Allergy (Mild, Verified 06/05/24 14:28) FLUSH, SHORT OF BREATH SEASONAL ALLERGIES Allergy (Unknown, Uncoded 06/05/24 14:28) SHORT OF BREATH PFSH Medical History Obesity Back pain of lumbar region with sciatica Pain in right femur Hip pain, right Balanitis Change in bowel function Diarrhea Morbid obesity Diabetes type 2, uncontrolled Fatty liver Ventricular tachycardia Peripheral vascular disease Vitamin D deficiency GERD (gastroesophageal reflux disease) Hypercholesterolemia Left bundle branch block AZEEM (obstructive sleep apnea) HTN (hypertension) Biventricular ICD (implantable cardioverter-defibrillator) in place Nonischemic cardiomyopathy Surgical History History of permanent cardiac pacemaker placement History of cardiac catheterization Family History Father CHF (congestive heart failure) Diabetes Mother No problems noted. Social History Housing: House Alcohol intake: current Alcohol intake frequency: a few times a week Patient Tobacco Use Status: Never used Tobacco e-Cigarette/Vaping Use: Never Used Second Hand Smoke Exposure: No service: No Current occupational status: employed Cognitive needs: No Hearing needs: No Vision needs: Yes (reading glasses) Office Procedures Cardiac Device Check Cardiac Device Check Details: Remote heart failure report generated 06/09/2024. Heart failure parameters are stable [id number] Cardiac Device Interrogation, cardio physiologic monitor Procedure code (CPT) selection complete Assessment & Plan Assessment & Plan (1) Biventricular ICD (implantable cardioverter-defibrillator) in place: Comment: September 2019 Code(s): Z95.810 - Presence of automatic (implantable) cardiac defibrillator Category: Medical Plan: See above Coding Level of Care Code Procedure Only Diagnoses Biventricular ICD (implantable cardioverter-defibrillator) in place Z95.810 CPT Codes Cardiac Device Check - Cardiac Device 15: [id number] Cardiac Device Interrogation, cardio physiologic monitor ([id number])
== END ==
PROVIDERS: PCP Internal Medicine; Visit Provider Internal Medicine Cardiovascular Disease
DX: Z45.09 Encounter for adjustment and management of other cardiac device (principal)
CPT/HCPCS: 93297

== ENCOUNTER → 2024-06-14 23:59 | Outpatient (BNV) | payer BC, SELFPAY ==
--- NOTE | 2024-07-10 14:49 | A.OFFVIS_ITS ---
Intake Visit Reasons: remote HF monitoring- [employer] Allergies morphine [Morphine] Allergy (Mild, Verified 06/15/24 09:41) FLUSH, SHORT OF BREATH SEASONAL ALLERGIES Allergy (Unknown, Uncoded 06/15/24 09:41) SHORT OF BREATH [facility] Medical History Anal pain Perirectal abscess Rectal pain Obesity Back pain of lumbar region with sciatica Pain in right femur Hip pain, right Balanitis Change in bowel function Diarrhea Morbid obesity Diabetes type 2, uncontrolled Fatty liver Ventricular tachycardia Peripheral vascular disease Vitamin D deficiency GERD (gastroesophageal reflux disease) Hypercholesterolemia Left bundle branch block AZEEM (obstructive sleep apnea) HTN (hypertension) Biventricular ICD (implantable cardioverter-defibrillator) in place Nonischemic cardiomyopathy Surgical History History of permanent cardiac pacemaker placement History of cardiac catheterization Family History Father CHF (congestive heart failure) Diabetes Mother No problems noted. Social History Housing: House Alcohol intake: current Alcohol intake frequency: a few times a week Patient Tobacco Use Status: Never used Tobacco e-Cigarette/Vaping Use: Never Used Second Hand Smoke Exposure: No service: No Current occupational status: employed Cognitive needs: No Hearing needs: No Vision needs: Yes (reading glasses) Office Procedures Cardiac Device Check Cardiac Device Check Details: Remote ICD report generated 07/07/2024. ICD function is adequate. Bi V pacing 98% of the time [id number] Cardiac Interrogation, implant defibrillator w/interim Procedure code (CPT) selection complete Assessment & Plan Assessment & Plan (1) Biventricular ICD (implantable cardioverter-defibrillator) in place: Comment: September 2019 Code(s): Z95.810 - Presence of automatic (implantable) cardiac defibrillator Category: Medical Plan: See above Coding Level of Care Code Procedure Only Diagnoses Biventricular ICD (implantable cardioverter-defibrillator) in place Z95.810 CPT Codes Cardiac Device Check - Cardiac Device 13: [id number] Cardiac Interrogation, implant defibrillator w/interim ([id number])
== END ==
PROVIDERS: PCP Internal Medicine; Visit Provider Internal Medicine Cardiovascular Disease
DX: Z45.02 Encounter for adjustment and management of automatic implantable cardiac defibrillator (principal)
CPT/HCPCS: 93295

== ENCOUNTER → 2024-06-14 23:59 | Outpatient (BNV) | payer BC, SELFPAY ==
--- NOTE | 2024-06-23 11:47 | A.OFFVIS_ITS ---
Intake Visit Reasons: remote HF monitoring- [employer] Allergies morphine [Morphine] Allergy (Mild, Verified 06/15/24 09:41) FLUSH, SHORT OF BREATH SEASONAL ALLERGIES Allergy (Unknown, Uncoded 06/15/24 09:41) SHORT OF BREATH PFSH Medical History Anal pain Perirectal abscess Rectal pain Obesity Back pain of lumbar region with sciatica Pain in right femur Hip pain, right Balanitis Change in bowel function Diarrhea Morbid obesity Diabetes type 2, uncontrolled Fatty liver Ventricular tachycardia Peripheral vascular disease Vitamin D deficiency GERD (gastroesophageal reflux disease) Hypercholesterolemia Left bundle branch block AZEEM (obstructive sleep apnea) HTN (hypertension) Biventricular ICD (implantable cardioverter-defibrillator) in place Nonischemic cardiomyopathy Surgical History History of permanent cardiac pacemaker placement History of cardiac catheterization Family History Father CHF (congestive heart failure) Diabetes Mother No problems noted. Social History Housing: House Alcohol intake: current Alcohol intake frequency: a few times a week Patient Tobacco Use Status: Never used Tobacco e-Cigarette/Vaping Use: Never Used Second Hand Smoke Exposure: No service: No Current occupational status: employed Cognitive needs: No Hearing needs: No Vision needs: Yes (reading glasses) Office Procedures Cardiac Device Check Cardiac Device Check Details: Remote heart failure report generated 06/14/2024. Heart failure parameters are stable [id number] Cardiac Device Interrogation, cardio physiologic monitor Procedure code (CPT) selection complete Assessment & Plan Assessment & Plan (1) Biventricular ICD (implantable cardioverter-defibrillator) in place: Comment: September 2019 Code(s): Z95.810 - Presence of automatic (implantable) cardiac defibrillator Category: Medical Plan: See above Coding Level of Care Code Procedure Only Diagnoses Biventricular ICD (implantable cardioverter-defibrillator) in place Z95.810 CPT Codes Cardiac Device Check - Cardiac Device 15: [id number] Cardiac Device I nterrogation, cardio physiologic monitor ([id number])
== END ==
PROVIDERS: PCP Internal Medicine; Visit Provider Internal Medicine Cardiovascular Disease
DX: Z45.02 Encounter for adjustment and management of automatic implantable cardiac defibrillator (principal)
CPT/HCPCS: 93297

== ENCOUNTER 2024-06-15 08:28 | Outpatient (AMB) | payer BC, SELFPAY ==
--- NOTE | 2024-06-15 08:34 | MHC.PC.OV ---
Vital Signs 06/15/24 08:35 Height 5 ft 9 in Weight 270 lb BMI 39.9 BP 120/80 Blood Pressure Location Lt brachial Position Sitting Pulse 91 Pulse Source Pulse Oximeter Temp 97.5 F Temp Source Temporal Artery Scan Pulse Oximetry (%) 96 Oxygen Delivery Method Room Air Intake Visit Reasons: polyp or hernia Intake Note: Patient is here to follow up on Polyp or Hernia. Chief Sustainability Officer Required: No Metalizer: Not Required per policy Accompanied by: Self / Same As Patient Allergies morphine [Morphine] Allergy (Mild, Verified 06/15/24 09:41) FLUSH, SHORT OF BREATH SEASONAL ALLERGIES Allergy (Unknown, Uncoded 06/15/24 09:41) SHORT OF BREATH Medication List - Last Reconciled 06/15/24 by Jessica Thomas PA-C albuterol sulfate 90 mcg/actuation (Ventolin HFA) 2 puffs inhalation Q6H PRN [CPAP full face mask medium size 13 cm H2O humidified Air ] cyclobenzaprine 10 mg PO TID PRN empagliflozin 25 mg PO DAILY fexofenadine 180 mg PO DAILY PRN fluticasone propionate 50 mcg/actuation (Flonase Allergy Relief) 2 sprays intranasal DAILY furosemide 40 mg PO DAILY PRN lisinopril 40 mg PO DAILY lovastatin 40 mg PO DAILY metformin 1,000 mg PO BID metoprolol succinate ER 150 mg (1.5 x 100 mg) PO DAILY 90 days semaglutide 2 mg (0.75 mL) subcut QWEEK sildenafil 50 mg PO DAILY PRN Tobacco use date assessed: 06/15/24 Dental Screening Dental Screen Date: 06/05/24 HPI polyp or hernia HPI Details History of Present Illness The patient is a 58-year-old male presenting with a concern regarding a mass located in the anorectal area. He first observed the mass last . Reports pain while sitting. Reports normal bowel movements. Denies any abdominal pain. Denies any rectal trauma, recent falls, recent rectal intercourse or history of abscesses to the perirectal area in the past. Denies any fevers, chills or any other symptoms complaints or concerns at this time Review of Systems - Gastrointestinal: Reports pain in the rectal area; Denies bleeding - General: Reports pain when sitting for prolonged periods PFSH Medical History Anal pain Perirectal abscess Rectal pain Obesity Back pain of lumbar region with sciatica Pain in right femur Hip pain, right Balanitis Change in bowel function Diarrhea Morbid obesity Diabetes type 2, uncontrolled Fatty liver Ventricular tachycardia Peripheral vascular disease Vitamin D deficiency GERD (gastroesophageal reflux disease) Hypercholesterolemia Left bundle branch block AZEEM (obstructive sleep apnea) HTN (hypertension) Biventricular ICD (implantable cardioverter-defibrillator) in place Nonischemic cardiomyopathy Surgical History History of permanent cardiac pacemaker placement History of cardiac catheterization Family History Father CHF (congestive heart failure) Diabetes Mother No problems noted. Social History Housing: House Alcohol intake: current Alcohol intake frequency: a few times a week Patient Tobacco Use Status: Never used Tobacco e-Cigarette/Vaping Use: Never Used Second Hand Smoke Exposure: No service: No Current occupational status: employed Cognitive needs: No Hearing needs: No Vision needs: Yes (reading glasses) Questionnaire Thrive Questionnaire Date Thrive assessed: 03/23/24 VERONICA-7 AMB Questionnaire VERONICA-7 Date VERONICA - 7 assessed: 03/23/24 Source: Developed by Drs. Jasvir Salazar, Jory Sanchez, Akira Fairbanks and colleagues, with an educational saloni from [employer]. Physical exam (Primary Care) Vital Signs: Last Vital Signs Temp 97.5 F 06/15/24 08:35 Pulse 91 06/15/24 08:35 BP 120/80 06/15/24 08:35 Pulse Ox 96 06/15/24 08:35 Oxygen Delivery Method Room Air 06/15/24 08:35 BMI result Body Mass Index 39.9 Tobacco/Smoking Status: Tobacco use Status Tobacco use date assessed 06/15/24 06/15/24 08:43 Patient Tobacco Use Status Never used Tobacco 06/15/24 08:43 e-Cigarette/Vaping Use Never Used 06/15/24 08:43 Thrive Assessment: Date of Thrive Assessment Date Thrive assessed 03/23/24 06/15/24 08:43 Const Other: Physical Exam Appearance: Alert. Oriented X3. No acute distress. Head: Normal external exam. Normocephalic. Atraumatic. Eyes: Pupils are equal, round, and reactive to light. Extraocular movements intact. Conjunctiva and sclera normal. Eyelids normal. Throat: Pharynx normal. Uvula midline. Moist mucous membranes. Neck: Normal inspection. Neck supple. Full range of motion. Cardiovascular: Normal heart rate and rhythm. Respiratory: No respiratory distress. Painless inspiration. Rectum: To the perirectal left-sided patient has a fluctuant tender area concerned to be abscess versus hemorrhoid. No purulent drainage noted at this time or signs of trauma. Back: Full range of motion noted. Skin: Skin warm and dry. Normal skin color. Normal skin turgor. No rashes/lesions/lacerations noted. Extremities: Extremities exhibit normal range of motion. Neuro: Oriented X 3. No motor deficit. No sensory deficit. Reflexes normal. Results AMB Hemoglobin A1c AMB Hemoglobin A1c 8.9 % Last Edit by KEVIN Granado on 06/15/24 08:49 Results Reviewed Results Reviewed: Laboratory Last Values Hgb A1c (Clinic) 8.9 % (4.0-6.0) H 06/15/24 08:34 Coding Level of Care Code Est Pt Level 3 (52773) Diagnoses Rectal pain K62.89 Perirectal abscess K61.1 Assessment & Plan Assessment & Plan (1) Rectal pain: Code(s): K62.89 - Other specified diseases of anus and rectum Category: Medical Plan: Patient with most likely perirectal hemorrhoid versus abscess. I discussed this case with the general surgeon Dr. Gab Mcqueen reported the patient can come over at this time to be evaluated by him. Patient to go directly over to general surgery for further evaluation treatment of rectal pain. Condition is acute and stable at this time. (2) Perirectal abscess: Code(s): K61.1 - Rectal abscess Category: Medical Plan: Patient with most likely perirectal hemorrhoid versus abscess. I discussed this case with the general surgeon Dr. Gab Mcqueen reported the patient can come over at this time to be evaluated by him. Patient to go directly over to general surgery for further evaluation treatment of rectal pain. Condition is acute and stable at this time. Plan Plan Patient was informed and verbally consented to the use of an ambient scribe for clinic note documentation during this visit. 1. Anorectal Pain Patient with most likely perirectal hemorrhoid versus abscess. I discussed this case with the general surgeon Dr. Gab Mcqueen reported the patient can come over at this time to be evaluated by him. Patient to go directly over to general surgery for further evaluation treatment of rectal pain. Orders: Orders AMB Hemoglobin A1c Today E11.65 - Type 2 diabetes mellitus with hyperglycemia Referrals General Surgery Referral K61.1 - Rectal abscess, K62.89 - Other specified diseases of anus and rectum Patient Instructions: Patient Instructions - Walk over to Dr. Gab Mcqueen?s office for further evaluation and treatment today. - Discuss any symptoms like increased pain or swelling immediately with the surgeon. - Follow the recommended care and management plan as discussed during evaluation.
[2024-06-15 08:35] VITALS: BP 120/80; PULSE 91; TEMP 36.4; O2SAT 96; BMI 39.9
--- OUTSIDE RECORDS SUMMARY | 2024-06-15 08:40 | XMS_ITS | Clinical Summary ---
Author Organization [address] Address [address] [place] [address] Care Team Providers Care E Mail System Administrator Name Role Phone Unavailable Primary Care Provider [...] EST Emergency [facility] [address] [place] [address] Acute parotitis (Primary Dx) Discharge Disposition: Home or Self Care 03/25/2024 Travel 03/24/2024 4:20 PM EST Office Visit [facility] [place] [address] [place] [address] Yamile Malcolm, DENTURE PACKER Parotitis, acute (Primary Dx) from Last 3 [...] screening 2005 Colon cancer screening, Colonoscopy 2010 Pneumococcal Vaccine (50+ ye ars) (1 of 1 - PCV) 12/04/2015 Shingles vaccine (Shingrix) (1 of 2 - Shingrix (RZV) 2 Dose Standard Series) 12/04/2015 Covid-19 vaccine series (1 - 2023- season) 2023 Influenza vaccine 11/06/2024 Diabetes screening 03/25/2027 03/25/2024 RSV Immunization (1 - 1-dose 75+ series) [...] DOSE ACQUIRED DURING SCAN: 386.02 mGy.cm. The [facility] Imaging Department strives for high quality imaging [...] DOSE ACQUIRED DURING SCAN: 386.02 mGy.cm. The [facility] Imaging Department strives for high qualityimaging with [...] signed by: Ashanti Gallo MD [facility] [place] Final Result * (ABNORMAL) Basic metabolic panel (03/25/2024 1:37 PM EST) Glucose 316(H) 65 - 110 mg/dL 03/25/2024 2:22 PM [facility] Comment: Non-fasting: ??65-110 mg/dL Fasting (minimum 6 hrs): ??65-99 mg/dL BUN 12 7 - 18 mg/dL 03/25/2024 2:22 PM [facility] Creatinine 0.94 0.70 - 1.30 mg/dL 03/25/2024 2:22 PM [facility] Sodium 135(L) 136 - 145 mmol/L 03/25/2024 2:22 PM [facility] Potassium 3.7 3.5 - 5.1 mmol/L 03/25/2024 2:22 PM [facility] Chloride 105 98 - 107 mmol/L 03/25/2024 2:22 PM [facility] CO2 26 21 - 32 mmol/L 03/25/2024 2:22 PM [facility] Anion Gap 4(L) 5 - 15 mmol/L 03/25/2024 2:22 PM [facility] Calcium 9.6 8.5 - 10.1 mg/dL 03/25/2024 2:22 PM [facility] eGFR (Creatinine) >60 >=60 mL/min/1.7 3m2 03/25/2024 2:22 PM [facility] Comment: [facility] utilizes CKD-EPI Creatinine 2020 to report eGFR. Values < 60 mL/min/1.73 m2 may indicate CKD if present for more than three months AND creatinine is at steady state. The eGFR provides a rough estimate of kidney function. For further guidance, please refer to the CKD: Adult Web Retailer Signature pathway. Creatinine Delta 03/25/2024 2:22 PM [facility] Comment:No previous creatini ne <5.00 mg/dL is available within the previous 12 months to calculate a delta creatinine. Blood Venipuncture / Unknown 03/25/2024 1:37 PM EST 03/25/2024 1:40 PM EST us [facility] LAB BLOOD ORDERABLES Final Resu lt [facility] [address] [facility] [address] [place], [place] [id number] [place] [address] * CBC auto differential (03/25/2024 1:37 PM EST) WBC 4.1 4.0 - 11.0 x1000/??L 03/25/2024 1:43 PM EST [facility] RBC 4.76 4.00 - 6.00 M/??L 03/25/2024 1:43 PM EST [facility] Hemoglobin 15.1 13.2 - 17.1 g/dL 03/25/2024 1:43 PM EST [facility] Hematocrit 43.90 38.50 - 50.00 % 03/25/2024 1:43 PM EST [facility] MCV 92.2 80.0 - 100.0 fL 03/25/2024 1:43 PM EST [facility] MCH 31.7 27.0 - 33.0 pg 03/25/2024 1:43 PM EST [facility] MCHC 34.4 31.0 - 36.0 g/dL 03/25/2024 1:43 PM EST [facility] RDW-CV 12.4 11.0 - 15.0 % 03/25/2024 1:43 PM EST [facility] Platelets 190 150 - 420 x1000/??L 03/25/2024 1:43 PM EST [facility] MPV 9.1 8.0 - 12.0 [...] - 1.0 % 03/25/2024 1:43 PM EST [facility] nRBC 0.0 0.0 - 1.0 % 03/25/2024 1:43 PM [facility] Absolute Lymphocyte Count 1.09 0.60 - 3.70 x 1000/??L 03/25/2024 1:43 PM [facility] Monocyte Absolute Count 0.49 0.00 - 1.00 x 1000/??L 03/25/2024 1:43 PM [facility] Eosinophil Absolute Count 0.18 0.00 - 1.00 x 1000/??L 03/25/2024 1:43 PM [facility] Basophil Absolute Count 0.03 0.00 - 1.00 x 1000/??L 03/25/2024 1:43 PM [facility] Absolute Immature Granulocyte Count 0.02 0.00 - 0.30 x 1000/??L 03/25/2024 1:43 PM [facility] Absolute nRBC 0.00 0.00 - 1.00 x 1000/??L 03/25/2024 1:43 PM [facility] ANC (Abs Neutrophil Count) 2.30 2.00 - 7.60 x 1000/??L 03/25/2024 1:43 PM [facility] Blood Venipuncture / Unknown 03/25/2024 1:37 PM EST 03/25/2024 1:40 PM EST us [facility] BLOOD ORDERABLES Final Resu lt Performing Organization Address City/State/[facility] Co de Phone Number [facility] [address] [place] [address], [facility] [phone] from Last 3 Months Insurance BS [facility] [place] [address] [address] [place] [address]
== END 2024-06-15 09:13 | disposition home or self-care (01) ==
PROVIDERS: PCP Internal Medicine; Visit Provider Physician Assistant Medical
DX: E11.65 Type 2 diabetes mellitus with hyperglycemia (principal)

== ENCOUNTER → 2024-06-15 08:28 | Outpatient (BNVA) | payer BC, SELFPAY | PROVIDERS: PCP Internal Medicine; Visit Provider Physician Assistant Medical | DX: K62.89 Other specified diseases of anus and rectum (principal); K64.8 Other hemorrhoids; K42.9 Umbilical hernia without obstruction or gangrene; K61.1 Rectal abscess; E11.65 Type 2 diabetes mellitus with hyperglycemia | CPT/HCPCS: 46600; 83036 ==

== ENCOUNTER 2024-06-15 09:18 | Outpatient (AMB) | payer BC, SELFPAY ==
--- NOTE | 2024-06-15 09:20 | A.OFFVIS_ITS ---
Intake Visit Reasons: Abscess~ Intake Note: Patient pcp Jessica Thomas PA-C called for patient to be seen this morning for perianal abscess. First noticed Wednesday after traveling and sitting for long period of time. Patient c/o: painful when sitting. Smaller since first noticed. Report no hx of external hemorrhoids. Vice President Of Human Resources Required: No Accompanied by: Self / Same As Patient Allergies morphine [Morphine] Allergy (Mild, Verified 06/15/24 09:41) FLUSH, SHORT OF BREATH SEASONAL ALLERGIES Allergy (Unknown, Uncoded 06/15/24 09:41) SHORT OF BREATH HPI HPI Abscess~: Details: 58-year-old male referred by the primary care office today because of a painful perianal cyst. He actually describes pain on the left side of his anus for ab out 4 days now. He says that this started when he was on a flight to [place] and had been sitting for a long period of time He denies any drainage. Denies any fever or chills He does state that the pain seems to be better today. He denies any bleeding. He denies a problem with constipation. [facility] Medical History (Updated 06/15/24 @ 09:43 by Gab Mcqueen MD) Anal pain Perirectal abscess Rectal pain Obesity Back pain of lumbar region with sciatica Pain in right femur Hip pain, right Balanitis Change in bowel function Diarrhea Morbid obesity Diabetes type 2, uncontrolled Fatty liver Ventricular tachycardia Peripheral vascular disease Vitamin D deficiency GERD (gastroesophageal reflux disease) Hypercholesterolemia Left bundle branch block AZEEM (obstructive sleep apnea) HTN (hypertension) Biventricular ICD (implantable cardioverter-defibrillator) in place Nonischemic cardiomyopathy Surgical History History of permanent cardiac pacemaker placement History of cardiac catheterization Family History Father CHF (congestive heart failure) Diabetes Mother No problems noted. Social History Housing: House Alcohol intake: current Alcohol intake frequency: a few times a week Patient Tobacco Use Status: Never used Tobacco e-Cigarette/Vaping Use: Never Used Second Hand Smoke Exposure: No service: No Current occupational status: employed Cognitive needs: No Hearing needs: No Vision needs: Yes (reading glasses) Review of Systems Const Denies chills and Denies fever(s) Card Denies chest pain, Denies dyspnea and Denies dyspnea on exertion Resp Denies cough, Denies dyspnea and Denies dyspnea on exertion GI Denies hematochezia and Denies change in bowel habits Denies hematuria and Denies difficulty urinating Musc Denies back pain and Denies limited range of motion Neuro Denies focal weakness and Denies convulsions Psych Denies depression and Denies mood swings Physical Exam Const General: comfortable and no acute distress Nutritional Appearance: obese Orientation/consciousness: patient oriented x3 Neck Neck: Yes no lymphadenopathy Resp Auscultation: clear to auscultation bilaterally Cardio Rhythm: regular rhythm GI Other: Abdomen very protuberant, small umbilical hernia, about 1.5 cm Rectal exam shows no perianal induration, redness or swelling, no fissure, digital exam done, some tenderness in the left side but he was able to tolerate this. Palpation (GI): Soft to palpation, nontender and no guarding Neuro General: patient oriented x3 Office Procedures Anoscopy He was in a kneeling shashi-knife position. The anoscope was gently inserted a full exam of the anal canal was done. He did have this large internal hemorrhoid that appears to be edematous on the left side. There was no evidence of any abscess, induration, or discharge. He did not have any significant pain tenderness with insertion of the anoscope and he tolerated the procedure well. There were no other lesions. [id number] Results AMB Hemoglobin A1c AMB Hemoglobin A1c 8.9 % Last Edit by KEVIN Granado on 06/15/24 08:49 Assessment & Plan Assessment & Plan (1) Anal pain: Code(s): K62.89 - Other specified diseases of anus and rectum Category: Medical Plan: This actually appears to be because of a large internal hemorrhoid that is mildly swollen. He does state that this is better today I do not see any evidence of any perianal abscess or cyst. He was able to tolerate digital exam as well as anoscopy easily so it was unlikely that etiology is an abscess or inflammation. I told him therefore the it does not appear that he will need any I and D at this time. However, I did tell him that he should come back to the office if he notices worsening or non improvement. He is comfortable with the plan. (2) Umbilical hernia: Code(s): K42.9 - Umbilical hernia without obstruction or gangrene Category: Medical Plan: He has this umbilical hernia I described above. This is reducible. He does state that this has increased in size over the years. I explained to him the option of proceeding with repair with possible mesh. I reviewed the risks, benefits, and alternatives He says he will think about this for now and will come back to the office if he decides to proceed. Coding Level of Care Code New Pt Level 3 (90502) Diagnoses Anal pain K62.89 Umbilical hernia K42.9 CPT Codes Details - CPT: 03141-[id number] ([id number])
--- OUTSIDE RECORDS SUMMARY | 2024-06-15 10:04 | XMS_ITS | Clinical Summary ---
Author Organization [address] Address [address] [place] [address] Care Team Providers Care Metal Sander And Finisher Name Role Phone Unavailable Primary Care Provider [...] EST Emergency [facility] [address] [place] [address] Acute parotitis (Primary Dx) Discharge Disposition: Home or Self Care 03/25/2024 Travel 03/24/2024 4:20 PM EST Office Visit [facility] [place] [address] [place] [address] Yamile Malcolm, CHALK MACHINE OPERATOR Parotitis, acute (Primary Dx) from Last 3 [...] DOSE ACQUIRED DURING SCAN: 386.02 mGy.cm. The [facility] Imaging Department strives for [...] DOSE ACQUIRED DURING SCAN: 386.02 mGy.cm. The [facility] Imaging Department strives for [...] signed by: Ashanti Gallo MD [facility] [place] ORDERABLES Final Result * (ABNORMAL) Basic metabolic panel (03/25/2024 1:37 PM EST) Glucose 316(H) 65 - 110 mg/dL 03/25/2024 2:22 PM [facility] Comment: Non-fasting: ??65-110 mg/dL Fasting (minimum 6 hrs): ??65-99 mg/dL BUN 12 7 - 18 mg/dL 03/25/2024 2:22 PM [facility] Creatinine 0.94 0.70 - 1.30 mg/dL 03/25/2024 2:22 PM [facility] Sodium 135(L) 136 - 145 mmol/L 03/25/2024 2:22 PM [facility] Potassium 3.7 3.5 - 5.1 mmol/L 03/25/2024 2:22 PM [facility] Chloride 105 98 - 107 mmol/L 03/25/2024 2:22 PM [facility] CO2 26 21 - 32 mmol/L 03/25/2024 2:22 PM [facility] Anion Gap 4(L) 5 - 15 mmol/L 03/25/2024 2:22 PM [facility] Calcium 9.6 8.5 - 10.1 mg/dL 03/25/2024 2:22 PM [facility] eGFR (Creatinine) >60 >=60 mL/min/1.7 3m2 03/25/2024 2:22 PM [facility] Comment: [facility] utilizes CKD-EPI Creatinine 2020 to report eGFR. Values < 60 mL/min/1.73 m2 may indicate CKD if present for more than three months AND creatinine is at steady state. The eGFR provides a rough estimate of kidney function. For further guidance, please refer to the CKD: Adult Refinery Process Engineer Signature pathway. Creatinine Delta 03/25/2024 2:22 PM [facility] Comment:No previous creatini ne <5.00 mg/dL is available within the previous 12 months to calculate a delta creatinine. Blood Venipuncture / Unknown 03/25/2024 1:37 PM EST 03/25/2024 1:40 PM EST us [facility] BLOOD ORDERABLES Final Resu lt [facility] [address] [facility] Man. [place], [place] [id number] [place] [address] * CBC auto differential (03/25/2024 1:37 PM [...] - 1.0 % 03/25/2024 1:43 PM EST [facility] nRBC 0.0 0.0 - 1.0 % 03/25/2024 1:43 PM [facility] Absolute Lymphocyte Count 1.09 0.60 - 3.70 x 1000/??L 03/25/2024 1:43 PM [facility] Monocyte Absolute Count 0.49 0.00 - 1.00 x 1000/??L 03/25/2024 1:43 PM [facility] Eosinophil Absolute Count 0.18 0.00 - 1.00 x 1000/??L 03/25/2024 1:43 PM [facility] Basophil Absolute Count 0.03 0.00 - 1.00 x 1000/??L 03/25/2024 1:43 PM [facility] Absolute Immature Granulocyte Count 0.02 0.00 - 0.30 x 1000/??L 03/25/2024 1:43 PM [facility] Absolute nRBC 0.00 0.00 - 1.00 x 1000/??L 03/25/2024 1:43 PM [facility] ANC (Abs Neutrophil Count) 2.30 2.00 - 7.60 x 1000/??L 03/25/2024 1:43 PM [facility] Blood Venipuncture / Unknown 03/25/2024 1:37 PM EST 03/25/2024 1:40 PM EST us [facility] BLO[facility] ORDERABLES Final Resu lt Performing Organization Address City/State/[facility] Co de Phone Number [facility] [address] [place] [address], [facility] [phone] from Last 3 Months Insurance BS [facility] [place] [address]
== END 2024-06-15 09:39 | disposition home or self-care (01) ==
LOC: HO.HGS 09:18
PROVIDERS: PCP Internal Medicine; Visit Provider Surgery
DX: K62.89 Other specified diseases of anus and rectum (principal); K42.9 Umbilical hernia without obstruction or gangrene
CPT/HCPCS: 46600; 99203

== ENCOUNTER 2024-06-19 08:39 | Outpatient (AMB) | payer BC, SELFPAY ==
--- OUTSIDE RECORDS SUMMARY | 2024-06-19 09:12 | XMS_ITS | Clinical Summary ---
Author Organization [address] Address [address] [place] [address] Care Team Providers Care Music Agent Name Role Phone Unavailable Primary Care Provider [...] EST Emergency [facility] [place] [address] [place] [address] Acute parotitis (Primary Dx) Discharge Disposition: Home or Self Care 03/25/2024 Travel 03/24/2024 4:20 PM EST Office Visit [facility] [address] [place] [address] Yamile Malcolm, OPERATING SYSTEMS PROGRAMMER Parotitis, acute (Primary Dx) from Last 3 [...] DOSE ACQUIRED DURING SCAN: 386.02 mGy.cm. The [facility] Imaging Department strives for high [...] DOSE ACQUIRED DURING SCAN: 386.02 mGy.cm. The [facility] Imaging Department strives for high [...] signed by: Ashanti Gallo MD [facility] ORDERABLES Final Result * (ABNORMAL) Basic metabolic panel (03/25/2024 1:37 PM EST) Glucose 316(H) 65 - 110 mg/dL 03/25/2024 2:22 PM [facility] Comment: Non-fasting: ??65-110 mg/dL Fasting (minimum 6 hrs): ??65-99 mg/dL BUN 12 7 - 18 mg/dL 03/25/2024 2:22 PM [facility] Creatinine 0.94 0.70 - 1.30 mg/dL 03/25/2024 2:22 PM [facility] Sodium 135(L) 136 - 145 mmol/L 03/25/2024 2:22 PM [facility] Potassium 3.7 3.5 - 5.1 mmol/L 03/25/2024 2:22 PM [facility] Chloride 105 98 - 107 mmol/L 03/25/2024 2:22 PM [facility] CO2 26 21 - 32 mmol/L 03/25/2024 2:22 PM [facility] Anion Gap 4(L) 5 - 15 mmol/L 03/25/2024 2:22 PM [facility] Calcium 9.6 8.5 - 10.1 mg/dL 03/25/2024 2:22 PM [facility] eGFR (Creatinine) >60 >=60 mL/min/1.7 3m2 03/25/2024 2:22 PM [facility] Comment: [facility] utilizes CKD-EPI Creatinine 2020 to report eGFR. Values < 60 mL/min/1.73 m2 may indicate CKD if present for more than three months AND creatinine is at steady state. The eGFR provides a rough estimate of kidney function. For further guidance, please refer to the CKD: Adult Stoker Erector Signature pathway. Creatinine Delta 03/25/2024 2:22 PM [facility] Comment:No previous creatini ne <5.00 mg/dL is available within the previous 12 months to calculate a delta creatinine. Blood Venipuncture / Unknown 03/25/2024 1:37 PM EST 03/25/2024 1:40 PM EST us [facility] ORDERABLES Final Resu lt [facility] [address] [facility] [address] [place], [place] [id number] [place] [address] * CBC auto differential (03/25/2024 1:37 PM [...] - 1.0 % 03/25/2024 1:43 PM EST [facility] nRBC 0.0 0.0 - 1.0 % 03/25/2024 1:43 PM [facility] Absolute Lymphocyte Count 1.09 0.60 - 3.70 x 1000/??L 03/25/2024 1:43 PM [facility] Monocyte Absolute Count 0.49 0.00 - 1.00 x 1000/??L 03/25/2024 1:43 PM [facility] Eosinophil Absolute Count 0.18 0.00 - 1.00 x 1000/??L 03/25/2024 1:43 PM [facility] Basophil Absolute Count 0.03 0.00 - 1.00 x 1000/??L 03/25/2024 1:43 PM [facility] Absolute Immature Granulocyte Count 0.02 0.00 - 0.30 x 1000/??L 03/25/2024 1:43 PM [facility] Absolute nRBC 0.00 0.00 - 1.00 x 1000/??L 03/25/2024 1:43 PM [facility] ANC (Abs Neutrophil Count) 2.30 2.00 - 7.60 x 1000/??L 03/25/2024 1:43 PM [facility] Blood Venipuncture / Unknown 03/25/2024 1:37 PM EST 03/25/2024 1:40 PM EST [facility] ORDERABLES Final Resu lt Performing Organization Address City/State/[facility] Co de Phone Number [facility] [address] [place] [address], [facility] [phone] from Last 3 Months Insurance BS [facility] [place] [address] [place] [address]
--- NOTE | 2024-06-19 17:26 | MHC.OFFVIS ---
Intake Visit Reasons: device ck ok per DC Allergies morphine [Morphine] Allergy (Mild, Verified 06/15/24 09:41) FLUSH, SHORT OF BREATH SEASONAL ALLERGIES Allergy (Unknown, Uncoded 06/15/24 09:41) SHORT OF BREATH PFSH Medical History Anal pain Perirectal abscess Rectal pain Obesity Back pain of lumbar region with sciatica Pain in right femur Hip pain, right Balanitis Change in bowel function Diarrhea Morbid obesity Diabetes type 2, uncontrolled Fatty liver Ventricular tachycardia Peripheral vascular disease Vitamin D deficiency GERD (gastroesophageal reflux disease) Hypercholesterolemia Left bundle branch block AZEEM (obstructive sleep apnea) HTN (hypertension) Biventricular ICD (implantable cardioverter-defibrillator) in place Nonischemic cardiomyopathy Surgical History History of permanent cardiac pacemaker placement History of cardiac catheterization Family History Father CHF (congestive heart failure) Diabetes Mother No problems noted. Social History Housing: House Alcohol intake: current Alcohol intake frequency: a few times a week Patient Tobacco Use Status: Never used Tobacco e-Cigarette/Vaping Use: Never Used Second Hand Smoke Exposure: No service: No Current occupational status: employed Cognitive needs: No Hearing needs: No Vision needs: Yes (reading glasses) Office Procedures Cardiac Device Check Cardiac Device Check Details: Secret [employer] device check today shows DDD R mode, low rate 60, battery MS 0 1, 60%, therapies reviewed, atrial threshold 0.7 volts at 0.4 milliseconds, RV threshold 0.7 volts at 0.4 milliseconds, LV threshold was 3.75 volts at 0.4 milliseconds from LVH 1 to LV4, adjusted from LV 1 to can and threshold now 1.3 volts at 0.4 millisecond [id number] Cardiac Device Check, multi lead implantable defibrillator Procedure code (CPT) selection complete Assessment & Plan Assessment & Plan (1) Biventricular ICD (implantable cardioverter-defibrillator) in place: Comment: September 2019 Code(s): Z95.810 - Presence of automatic (implantable) cardiac defibrillator Category: Medical Plan: Device check for LV threshold alert Coding Level of Care Code Procedure Only Diagnoses Biventricular ICD (implantable cardioverter-defibrillator) in place Z95.810 CPT Codes Cardiac Device Check - Cardiac Device 6: [id number] Cardiac Device Check, multi lead implantable defibrillator ([id number])
== END 2024-06-19 09:59 | disposition home or self-care (01) ==
LOC: HO.HCS 08:40
PROVIDERS: PCP Internal Medicine; Visit Provider Internal Medicine Cardiovascular Disease
DX: Z45.02 Encounter for adjustment and management of automatic implantable cardiac defibrillator (principal)
CPT/HCPCS: 93284

== ENCOUNTER 2024-07-25 07:17 | Outpatient (REF) | payer BC, SELFPAY ==
--- OUTSIDE RECORDS SUMMARY | 2024-07-25 07:20 | XMS_ITS | Clinical Summary ---
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 Name Role Phone Unavailable Primary Care Provider [...] (0.75 ML) SUBCUTANEOUSLY EVERY WEEK 4 Active Social History Tobacco Use Types Packs/Day Years [...] Procedure Name Priority Date/Time Associated Diagnosis Comments BASIC METABOLIC PANEL STAT 03/25/2024 1:37 PM EST from Last 3 Months or Most Recently Relevant to Health Maintenance Results * (ABNORMAL) Basic metabolic panel (03/25/2024 1:37 PM EST) Glucose 316(H) 65 - 110 mg/dL 03/25/2024 2:22 PM EST [facility] Comment: Non-fasting: ??65-110 mg/dL Fasting (minimum 6 hrs): ??65-99 mg/dL BUN 12 7 - 18 mg/dL 03/25/2024 2:22 PM [facility] Creatinine 0.94 0.70 - 1.30 mg/dL 03/25/2024 2:22 PM [facility] Sodium 135(L) 136 - 145 mmol/L 03/25/2024 2:22 PM [facility] Potassium 3.7 3.5 - 5.1 mmol/L 03/25/2024 2:22 PM [facility] Chloride 105 98 - 107 mmol/L 03/25/2024 2:22 PM [facility] CO2 26 21 - 32 mmol/L 03/25/2024 2:22 PM [facility] Anion Gap 4(L) 5 - 15 mmol/L 03/25/2024 2:22 PM [facility] Calcium 9.6 8.5 - 10.1 mg/dL 03/25/2024 2:22 PM [facility] eGFR (Creatinine) >60 >=60 mL/min/1.7 3m2 03/25/2024 2:22 PM [facility] Comment: [facility] utilizes CKD-EPI Creatinine 2020 to report eGFR. Values < 60 mL/min/1.73 m2 may indicate CKD if present for more than three months AND creatinine is at steady state. The eGFR provides a rough estimate of kidney function. For further guidance, please refer to the CKD: Adult Registry Rn Signature pathway. Creatinine Delta 03/25/2024 2:22 PM [facility] Comment:No previous creatini ne <5.00 mg/dL is available within the previous 12 months to calculate a delta creatinine. Blood Venipuncture / Unknown 03/25/2024 1:37 PM EST 03/25/2024 1:40 PM EST us [facility] ORDERABLES Final Resu lt [facility] [address] [facility] [place] [address], [facility] [phone] from Last 3 Months or Most Recently Relevant to Health Maintenance Insurance ry [address] BS BS Member Subscriber Plan / Payer (Ef fective 2023-Present) Name:Mark Sena Relation to Subscriber:Spouse Name:DELIA SENA (Home) Address: [address] [place] [address] Payer ID:[id number] (NAIC) Type:Not on file Address: [address] [place] [id number]
[2024-07-25 07:31] LABS: MANUAL DIFF FLAG NO
[2024-07-25 07:45] LABS: Basophils Absolute Auto 0.1 X10*3/uL (0.0-0.2); Basophils Percent Auto 0.8 % (0-2); Eosinophils Absolute Auto 0.3 X10*3/uL (0.0-0.4); Eosinophils Percent Auto 4.2 % (0-4); Hematocrit 43.1 % (42.0-52.0); Hemoglobin 15.2 g/dl (14.0-18.0); Imm Gran Abs Auto 0.03 X10*3/uL (0.00-0.03); Imm Gran Pct Auto 0.5 % (0.0-0.4); Lymphocytes Absolute Auto 1.5 X10*3/uL (1.2-4.9); Lymphocytes Percent Auto 24.8 % (20-40); Mean Corpuscular HGB Conc 35.3 g/dl (31.0-36.0); Mean Corpuscular Hemoglobin 31.9 pg (27.0-33.0); Mean Corpuscular Volume 90.5 fL (80.0-98.0); Mean Platelet Volume 9.9 fL (9.4-12.4); Monocytes Absolute Auto 0.6 X10*3/uL (0.1-1.2); Monocytes Percent Auto 10.6 % (2-11); Neutrophils Absolute Auto 3.5 x10*3/uL (2.0-8.3); Neutrophils Percent Auto 59.1 % (45-73); Platelet Count 195 X10*3/uL (160-400); Red Blood Count 4.76 X10*6/uL (4.60-5.80); Red Cell Distribution Width 12.7 % (11.0-16.0)
[2024-07-25 07:58] LABS: Estimated Average Glucose 229 mg/dL; Hemoglobin A1C 320.1557 umol/L; Hemoglobin A1c % 9.6 % (<6.0); Total Hemoglobin (HGBA1C) 3957.4667 umol/L
[2024-07-25 08:19] LABS: B Type Natriuretic Peptide 71 pg/mL (<100)
[2024-07-25 08:24] LABS: Alanine Aminotransferase 61 U/L (0-40); Alkaline Phosphatase 65 U/L (39-117); Anion Gap 11 (12-20); Aspartate Amino Transferase 30 U/L (5-37); Bilirubin Total 1.2 mg/dL (0.0-1.0); Blood Urea Nitrogen 20 mg/dL (9-16); Calcium 9.1 mg/dL (8.4-10.2); Carbon Dioxide 25 mmol/L (22-29); Chloride 105 mmol/L (96-108); Cholesterol 174 mg/dL (<200); Estimated Glomerular Filt Rate > 60; Glucose Random 247 mg/dL (60-115); HDL Cholesterol 30 mg/dL (>40); LDL Cholesterol Calculated 104 mg/dL (<100); Magnesium 2.1 mg/dL (1.6-2.6); Potassium 4.1 mmol/L (3.3-5.1); Sodium 137 mmol/L (135-145); Triglycerides 200 mg/dL (<150)
[2024-07-25 08:33] LABS: Free T4 (Free Thyroxine) 0.95 ng/dL (0.71-1.85); Thyroid Stimulating Hormone 2.15 uIU/mL (0.32-4.0)
[2024-07-25 08:53] LABS: Folate 11.6 ng/mL (> or = 4.0); Prostate Specific Antigen Scr 0.68 ng/mL (<0.05-4.0); Vitamin B12 398 pg/mL (200-900)
[2024-07-25 09:24] LABS: Creatinine Urine 125.56 mg/dL; Microalbum/Creatinine Ratio Ur 8.7 ug/mg cr (<30)
== END 2024-07-25 07:18 | disposition home or self-care (01) ==
LOC: HO.LAB 07:17
PROVIDERS: Visit Provider Internal Medicine
DX: E11.65 Type 2 diabetes mellitus with hyperglycemia (principal); E78.00 Pure hypercholesterolemia, unspecified; Z12.5 Encounter for screening for malignant neoplasm of prostate
CPT/HCPCS: 36415; 80053; 80061; 82043; 82570; 82607; 82746; 83036; 83735; 83880; 84153; 84439; 84443; 85025

== ENCOUNTER 2024-07-25 09:32 | Outpatient (AMB) | payer BC, SELFPAY ==
[2024-07-25 09:35] VITALS: BP 136/82; PULSE 75; O2SAT 98; BMI 40.3
--- NOTE | 2024-07-25 09:35 | A.OFFPC_ITS ---
Vital Signs 07/25/24 09:35 Height 5 ft 9 in Weight 273 lb BMI 40.3 BP 136/82 Blood Pressure Location Lt brachial Position Sitting Pulse 75 Pulse Source Pulse Oximeter Pulse Oximetry (%) 98 Oxygen Delivery Method Room Air Intake Visit Reasons: 3 month f/u Allergies morphine [Morphine] Allergy (Mild, Verified 07/25/24 09:35) FLUSH, SHORT OF BREATH SEASONAL ALLERGIES Allergy (Unknown, Uncoded 07/25/24 09:35) SHORT OF BREATH Medication List - Last Reconciled 07/25/24 by Ondina France MD albuterol sulfate 90 mcg/actuation (Ventolin HFA) 2 puffs inhalation Q6H PRN [CPAP full face mask medium size 13 cm H2O humidified Air ] cyclobenzaprine 10 mg PO TID PRN empagliflozin (Jardiance) 25 mg PO DAILY fexofenadine 180 mg PO DAILY PRN fluticasone propionate 50 mcg/actuation (Flonase Allergy Relief) 2 sprays intranasal DAILY furosemide 40 mg PO DAILY PRN lisinopril 40 mg PO DAILY lovastatin 40 mg PO DAILY metformin 1,000 mg PO BID metoprolol succinate ER 150 mg (1.5 x 100 mg) PO DAILY 90 days semaglutide 2 mg (0.75 mL) subcut QWEEK sildenafil 50 mg PO DAILY PRN Tobacco use date assessed: 06/15/24 Dental Screening Dental Screen Date: 06/05/24 HPI 3 month f/u HPI Details admits to indiscriminate eating and not taking med and will change [facility] Medical History Anal pain Perirectal abscess Rectal pain Obesity Back pain of lumbar region with sciatica Pain in right femur Hip pain, right Balanitis Change in bowel function Diarrhea Morbid obesity Diabetes type 2, uncontrolled Fatty liver Ventricular tachycardia Peripheral vascular disease Vitamin D deficiency GERD (gastroesophageal reflux disease) Hypercholesterolemia Left bundle branch block AZEEM (obstructive sleep apnea) HTN (hypertension) Biventricular ICD (implantable cardioverter-defibrillator) in place Nonischemic cardiomyopathy Surgical History History of permanent cardiac pacemaker placement History of cardiac catheterization Family History Father CHF (congestive heart failure) Diabetes Mother No problems noted. Social History Housing: House Alcohol intake: current Alcohol intake frequency: a few times a week Patient Tobacco Use Status: Never used Tobacco Tobacco use type: Cigarette e-Cigarette/Vaping Use: Never Used Second Hand Smoke Exposure: No service: No Current occupational status: employed Cognitive needs: No Hearing needs: No Vision needs: Yes (reading glasses) Questionnaire PHQ-9 Over the last 2 weeks, how often have you been bothered by any of the following problems? 1. Little interest or pleasure in doing things: not at all 2. Feeling down, depressed, or hopeless: not at all 3. Trouble falling or staying asleep, or sleeping too much: not at all 4. Feeling tired or having little energy: not at all 5. Poor appetite or overeating: not at all 6. Feeling bad about yourself - or that you are a failure or have let yourself or your family down: not at all 7. Trouble concentrating on things, such as reading the newspaper or watching television: not at all 8. Moving or speaking so slowly that other people could have noticed. Or the opposite - being so fidgety or restless that you have been moving around a lot more than usual: not at all 9. Thoughts that you would be better off or of hurting yourself in some way: not at all Total score: 0 Depression Screening Interpretation: Negative Depression Screening Done: Yes Source: Developed by Drs. Jasvir Salazar, Jory Sanchez, Akira Fairbanks and colleagues, with an educational saloni from [employer]. Thrive Questionnaire Date Thrive assessed: 03/23/24 I am a: Patient What is your living situation today?: I have a steady place to live Within the past 12 months, did the food you bought not last and you didn't have the money to get more?: Often true Within the past 12 months, did you worry whether your food would run out before you got money to buy more?: Never true Do you have trouble paying for medicines?: No Do you have trouble getting transportation to medical appointments?: No Do you have trouble paying your heating and electricity bill?: No Do you have trouble taking care of your child, family member or friend?: No Do you have trouble with day-to-day activities such as bathing, preparing meals, shopping, managing finances, etc.?: No Are you currently unemployed and looking for a job?: No Are you interested in more education?: No Please select the resources that you would like help with: None Currently or been in a relationship where the following occur: No concerns reported THRIVE Score: 1 AUDIT C Alcohol Use Questionnaire (AUDIT-C) 1. How often do you have a drink containing alcohol?: 2-3 times a week 2. How many drinks containing alcohol do you have on a typical day when you are drinking?: 5 or 6 3. How often do you have six or more drinks on one occasion?: Monthly Total Score: 7 VERONICA-7 AMB Questionnaire VERONICA-7 Date VERONICA - 7 assessed: 03/23/24 Feeling nervous, anxious, or on edge: 0 = Not at all Not being able to stop or control worryin = Not at all Worrying too much about different things: 0 = Not at all Trouble relaxin = Not at all Being so restless that it is hard to sit still: 0 = Not at all Becoming easily annoyed or irritable: 0 = Not at all Feeling afraid as if something awful might happen: 0 = Not at all Total VERONICA-7 score (0-4 normal; 5-9 mild; 10-14 moderate; 15-21 severe): 0 Source: Developed by Drs. Jasvir Salazar, Jory Sanchez, Akira Fairbanks and colleagues, with an educational saloni from [employer]. Physical exam (Primary Care) Vital Signs: Last Vital Signs Pulse 75 07/25/24 09:35 BP 136/82 07/25/24 09:35 Pulse Ox 98 07/25/24 09:35 Oxygen Delivery Method Room Air 07/25/24 09:35 BMI result Body Mass Index 40.3 Tobacco/Smoking Status: Tobacco use Status Tobacco use date assessed 06/15/24 07/25/24 09:38 Patient Tobacco Use Status Never used Tobacco 07/25/24 09:38 Tobacco use type Cigarette 07/25/24 09:38 e-Cigarette/Vaping Use Never Used 07/25/24 09:38 PHQ-9: PHQ-9 Score PHQ-9: Total score 0 07/25/24 09:38 Depression Screening Interpretation: Negative Thrive Assessment: Date of Thrive Assessment Date Thrive assessed 03/23/24 07/25/24 09:38 Currently or been in a relationship where the following occur: No concerns reported Const General: alert; No acute distress Eyes Conjunctivae: conjunctivae normal Resp Auscultation: clear to auscultation bilaterally Cardio Rate: regular rate Rhythm: regular rhythm GI Inspection: Yes normal to inspection Extrem General: Yes normal to inspection and No edema Coding Level of Care Code Est Pt Level 4 (67273) Complex EM visit Add On G2211 Diagnoses Type 2 diabetes mellitus with hyperglycemia, without long-term current use of insulin E11.65 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 Hemoglobin A1c goal of less than 6.5. Patient is on Jardiance 25 mg once a day metformin a 1000 mg twice a day semaglutide at 2 mg once a week (2) Hypercholesterolemia: Code(s): E78.00 - Pure hypercholesterolemia, unspecified Category: Medical Plan: Cholesterol plan LDL goal of less than 100 and triglyceride of less than 150 on lovastatin 40 mg once a day (3) GERD (gastroesophageal reflux disease): Code(s): K21.9 - Gastro-esophageal reflux disease without esophagitis Category: Medical Qualifiers: Esophagitis presence: without esophagitis Qualified Code(s): K21.9 - Gastro-esophageal reflux disease without esophagitis Plan: Avoid the foods that causes that usually spicy foods, tomato products, juices, coffee, soda and foods that your sensitive to. After eating do not lie down, allow 3-4 hours before in lie down. And keep the head of bed above 30 degrees to avoid the acid from going up. (4) HTN (hypertension): Code(s): I10 - Essential (primary) hypertension Category: Medical Qualifiers: Hypertension type: essential hypertension Qualified Code(s): I10 - Essential (primary) hypertension Plan: Continue with blood pressure medication. Decrease salt intake and exercise patient has sleep apnea on lisinopril 40 mg once a day (5) AZEEM (obstructive sleep apnea): Comment: CPAP use Code(s): G47.33 - Obstructive sleep apnea (adult) (pediatric) Category: Medical Plan: Continue to use the CPAP more than 4 hours a night and benefits from this. (6) Nonischemic cardiomyopathy: Comment: 04/27/2023 Low normal LV ejection fraction of 50-55% with mild LVH with grade 1 diastolic dysfunction 2. Normal cardiac valvular Dopplers 3. Normal RV systolic pressure 4. Mildly dilated ascending aorta at 4 cm 5. No pericardial effusion Code(s): I42.8 - Other cardiomyopathies Category: Medical Plan: Continue to follow-up with cardiology. (7) Morbid (severe) obesity due to excess calories: Code(s): E66.01 - Morbid (severe) obesity due to excess calories Category: Medical Plan History of Present Illness The patient is a 58-year-old male presenting with follow-up for multiple chronic conditions, focusing primarily on diabetes management, hypercholesterolemia, and obesity. He has a significant history of morbid obesity contributing to obstructive sleep apnea, now managed with CPAP usage. His hypertension is controlled with lisinopril, and he also has non-ischemic cardiomyopathy, monitored with an ICD recently checked by cardiology. The patient's diabetes mellitus remains poorly controlled with a hemoglobin A1c of 9.6. Current treatment includes Jardiance, metformin, and semaglutide. The patient has acknowledged dietary indiscretions, particularly fast food consumption, impacting the management of his diabetes and hypercholesterolemia, with an elevated LDL of 104 mg/dL. He is taking lovastatin for cholesterol control. The patient also suffers from gastroesophageal reflux disease and hepatic steatosis, evidenced by elevated liver enzymes. A thoracic aortic aneurysm has been measured at 4 cm, requiring monitoring. Recently noted bilateral reducible hernias have not necessitated surgical intervention, and episodes of anal pain have been evaluated, ruling out an abscess. Health Maintenance - Diabetes management with a target for hemoglobin A1c less than 6.5% - Hypertension management with lisinopril - Hypercholesterolemia management with a target LDL <100 mg/dL, currently on lovastatin 40 mg - Dietary modifications advised to manage obesity, diabetes, and hypercholesterolemia - Use of CPAP for obstructive sleep apnea - Monitoring of thoracic aortic aneurysm Social History - Reports significant work-related stress - Diet consists of frequent fast-food intake - Acknowledges need for dietary and lifestyle modifications - Recent increase in alcohol consumption - Reports being highly committed to improving personal health Review of Systems - Cardiovascular: Reports non-ischemic cardiomyopathy, checked ICD, no recent changes per echocardiogram - Endocrine/Metabolic: Reports diabetes mellitus with recent A1c of 9.6; reports hypercholesterolemia - Gastrointestinal: Reports gastroesophageal reflux disease, hepatic steatosis with elevated liver enzymes - Respiratory: Reports obstructive sleep apnea, uses CPAP nightly - Musculoskeletal: Denies any musculoskeletal pain apart from arthritic discomfort noted on the x-ray - General: Denies significant weight gain; reports morbid obesity - Dermatologic: Denies any draining wounds Physical Exam Results - Labs: Hemoglobin A1c at 9.6%, elevated liver enzymes, LDL cholesterol at 104 mg/dL - Imaging: Thoracic aortic aneurysm measured at 4 cm (previous report) - Echocardiogram in May 2024 for cardiomyopathy, no changes noted Plan 1. 5% and LDL less than 100 mg/dL. The patient should adhere strictly to the prescribed lovastatin regimen, while focusing on diet to mitigate obesity. A consistent hypertension management plan with lisinopril stays effective. Regular usage of CPAP for obstructive sleep apnea is emphasized. Cardiology follow-up f or non-ischemic cardiomyopathy and surveillance of a thoracic aortic aneurysm are necessary. Lifestyle modifications to prevent further weight gain and reduce stress are crucial.: Patient was informed and verbally consented to the use of an ambient scribe for clinic note documentation during this visit. Discussion Notes I discussed with the patient the necessity of achieving better control of diabetes with a current A1c of 9.6%, emphasizing the need for lifestyle and dietary modifications to accompany pharmacologic interventions. I reviewed the importance of maintaining LDL levels below 100 mg/dL along with the benefits of lovastatin, highlighting risks related to hypercholesterolemia and associated cardiovascular risks. Continued use of CPAP for sleep apnea management was underscored, noting the improvement with usage over 4 hours each night. We discussed the significance of closely monitoring the thoracic aortic aneurysm, understanding potential risks. I reinforced the importance of annual health screenings and continual cardiology evaluation to assess cardiac function, alongside encouraging reductions in alcohol intake and healthier dietary practices to aid in weight management. I emphasized the need for regular follow- up visits to re-evaluate these chronic conditions. 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
--- OUTSIDE RECORDS SUMMARY | 2024-07-25 10:28 | XMS_ITS | Clinical Summary ---
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 Role Phone Unavailable Primary Care Provider [...] - 110 mg/dL 03/25/2024 2:22 PM EST [facility] Comment: Non-fasting: ??65-110 mg/dL Fasting (minimum 6 hrs): ??65-99 mg/dL BUN 12 7 - 18 mg/dL 03/25/2024 2:22 PM [facility] Creatinine 0.94 0.70 - 1.30 mg/dL 03/25/2024 2:22 PM [facility] Sodium 135(L) 136 - 145 mmol/L 03/25/2024 2:22 PM [facility] Potassium 3.7 3.5 - 5.1 mmol/L 03/25/2024 2:22 PM [facility] Chloride 105 98 - 107 mmol/L 03/25/2024 2:22 PM [facility] CO2 26 21 - 32 mmol/L 03/25/2024 2:22 PM [facility] Anion Gap 4(L) 5 - 15 mmol/L 03/25/2024 2:22 PM [facility] Calcium 9.6 8.5 - 10.1 mg/dL 03/25/2024 2:22 PM [facility] eGFR (Creatinine) >60 >=60 mL/min/1.7 3m2 03/25/2024 2:22 PM [facility] Comment: [facility] utilizes CKD-EPI Creatinine 2020 to report eGFR. Values < 60 mL/min/1.73 m2 may indicate CKD if present for more than three months AND creatinine is at steady state. The eGFR provides a rough estimate of kidney function. For further guidance, please refer to the CKD: Adult Collection Specialist Signature pathway. Creatinine Delta 03/25/2024 2:22 PM [facility] Comment:No previous creatini ne <5.00 mg/dL is available within the previous 12 months to calculate a delta creatinine. Blood Venipuncture / Unknown 03/25/2024 1:37 PM EST 03/25/2024 1:40 PM EST [facility] LAB BLOOD ORDERABLES Final Resu lt [facility] [address] [facility] [place] [address], [facility] [phone] from Last 3 Months or Most Recently Relevant to Health Maintenance Insurance ry [address] BS BS Member Subscriber Plan / Payer (Ef fective 2023-Present) Name:Mark Sena Relation to Subscriber:Spouse Name:DELIA SENA (Home) Address: [address] [place] [address] Payer ID:[id number] (NAIC) Type:Not on file Address: [address] [place] [phone]
== END 2024-07-25 10:15 | disposition home or self-care (01) ==
LOC: HO.HMCH 09:33
PROVIDERS: PCP Internal Medicine; Visit Provider Internal Medicine
DX: E11.65 Type 2 diabetes mellitus with hyperglycemia (principal); I42.8 Other cardiomyopathies; E66.01 Morbid (severe) obesity due to excess calories; Z68.41 Body mass index [BMI] 40.0-44.9, adult; E78.00 Pure hypercholesterolemia, unspecified; K21.9 Gastro-esophageal reflux disease without esophagitis; I10 Essential (primary) hypertension; G47.33 Obstructive sleep apnea (adult) (pediatric)

== ENCOUNTER → 2024-08-14 23:59 | Outpatient (BNV) | payer BC, SELFPAY ==
--- NOTE | 2024-08-15 18:15 | A.OFFVIS_ITS ---
Intake Visit Reasons: Remote ICD check- [employer] Allergies morphine [Morphine] Allergy (Mild, Verified 07/25/24 09:35) FLUSH, SHORT OF BREATH SEASONAL ALLERGIES Allergy (Unknown, Uncoded 07/25/24 09:35) SHORT OF BREATH [facility] Medical History Anal pain Perirectal abscess Rectal pain Obesity Back pain of lumbar region with sciatica Pain in right femur Hip pain, right Balanitis Change in bowel function Diarrhea Morbid obesity Diabetes type 2, uncontrolled Fatty liver Ventricular tachycardia Peripheral vascular disease Vitamin D deficiency GERD (gastroesophageal reflux disease) Hypercholesterolemia Left bundle branch block AZEEM (obstructive sleep apnea) HTN (hypertension) Biventricular ICD (implantable cardioverter-defibrillator) in place Nonischemic cardiomyopathy Surgical History History of permanent cardiac pacemaker placement History of cardiac catheterization Family History Father CHF (congestive heart failure) Diabetes Mother No problems noted. Social History Housing: House Alcohol intake: current Alcohol intake frequency: a few times a week Patient Tobacco Use Status: Never used Tobacco Tobacco use type: Cigarette e-Cigarette/Vaping Use: Never Used Second Hand Smoke Exposure: No service: No Current occupational status: employed Cognitive needs: No Hearing needs: No Vision needs: Yes (reading glasses) Office Procedures Cardiac Device Check Cardiac Device Check Details: Remote ICD report generated 08/14/2024. ICD function is adequate. Bi V pacing 100% of the time [id number] Cardiac Interrogation, implant defibrillator w/interim Procedure code (CPT) selection complete Assessment & Plan Assessment & Plan (1) Biventricular ICD (implantable cardioverter-defibrillator) in place: Comment: September 2019 Code(s): Z95.810 - Presence of automatic (implantable) cardiac defibrillator Category: Medical Plan: See above Coding Level of Care Code Procedure Only Diagnoses Biventricular ICD (implantable cardioverter-defibrillator) in place Z95.810 CPT Codes Cardiac Device Check - Cardiac Device 13: [id number] Cardiac Interrogation, implant defibrillator w/interim ([id number])
== END ==
PROVIDERS: PCP Internal Medicine; Visit Provider Internal Medicine Cardiovascular Disease
DX: Z45.02 Encounter for adjustment and management of automatic implantable cardiac defibrillator (principal)
CPT/HCPCS: 93295

== ENCOUNTER → 2024-10-17 23:59 | Outpatient (BNV) | payer BC, SELFPAY ==
--- NOTE | 2024-10-19 12:49 | A.OFFVIS_ITS ---
Intake Visit Reasons: Remote ICD check- [employer] Allergies morphine (Morphine) Allergy (Mild, Verified 07/25/24 09:35) FLUSH, SHORT OF BREATH SEASONAL ALLERGIES Allergy (Unknown, Uncoded 07/25/24 09:35) SHORT OF BREATH [facility] Medical History Anal pain Perirectal abscess Rectal pain Obesity Back pain of lumbar region with sciatica Pain in right femur Hip pain, right Balanitis Change in bowel function Diarrhea Morbid obesity Diabetes type 2, uncontrolled Fatty liver Ventricular tachycardia Peripheral vascular disease Vitamin D deficiency GERD (gastroesophageal reflux disease) Hypercholesterolemia Left bundle branch block AZEEM (obstructive sleep apnea) HTN (hypertension) Biventricular ICD (implantable cardioverter-defibrillator) in place Nonischemic cardiomyopathy Surgical History History of permanent cardiac pacemaker placement History of cardiac catheterization Family History Father CHF (congestive heart failure) Diabetes Mother No problems noted. Social History Housing: House Alcohol intake: current Alcohol intake frequency: a few times a week Patient Tobacco Use Status: Never used Tobacco Tobacco use type: Cigarette e-Cigarette/Vaping Use: Never Used Second Hand Smoke Exposure: No service: No Current occupational status: employed Cognitive needs: No Hearing needs: No Vision needs: Yes (reading glasses) Office Procedures Cardiac Device Check Cardiac Device Check Details: Remote ICD report generated 10/17/2024. ICD function is adequate. Bi V pacing 98% of the time [id number] Cardiac Interrogation, implant defibrillator w/interim Procedure code (CPT) selection complete Assessment & Plan Assessment & Plan (1) Biventricular ICD (implantable cardioverter-defibrillator) in place: Comment: September 2019 Code(s): Z95.810 - Presence of automatic (implantable) cardiac defibrillator Category: Medical Plan: See above Coding Level of Care Code Procedure Only Diagnoses Biventricular ICD (implantable cardioverter-defibrillator) in place Z95.810 CPT Codes Cardiac Device Check - Cardiac Device 13: [id number] Cardiac Interrogation, implant defibrillator w/interim ([id number])
== END ==
PROVIDERS: PCP Internal Medicine; Visit Provider Internal Medicine Cardiovascular Disease
DX: Z45.02 Encounter for adjustment and management of automatic implantable cardiac defibrillator (principal)
CPT/HCPCS: 93295

== ENCOUNTER → 2024-11-11 23:59 | Outpatient (BNV) | payer BC, SELFPAY ==
--- NOTE | 2024-11-22 13:03 | MHC.OFFVIS ---
Intake Visit Reasons: remote HF monitoring- [employer] Allergies morphine (Morphine) Allergy (Mild, Verified 07/25/24 09:35) FLUSH, SHORT OF BREATH SEASONAL ALLERGIES Allergy (Unknown, Uncoded 07/25/24 09:35) SHORT OF BREATH PFSH Medical History Anal pain Perirectal abscess Rectal pain Obesity Back pain of lumbar region with sciatica Pain in right femur Hip pain, right Balanitis Change in bowel function Diarrhea Morbid obesity Diabetes type 2, uncontrolled Fatty liver Ventricular tachycardia Peripheral vascular disease Vitamin D deficiency GERD (gastroesophageal reflux disease) Hypercholesterolemia Left bundle branch block AZEEM (obstructive sleep apnea) HTN (hypertension) Biventricular ICD (implantable cardioverter-defibrillator) in place Nonischemic cardiomyopathy Surgical History History of permanent cardiac pacemaker placement History of cardiac catheterization Family History Father CHF (congestive heart failure) Diabetes Mother No problems noted. Social History Housing: House Alcohol intake: current Alcohol intake frequency: a few times a week Patient Tobacco Use Status: Never used Tobacco Tobacco use type: Cigarette e-Cigarette/Vaping Use: Never Used Second Hand Smoke Exposure: No service: No Current occupational status: employed Cognitive needs: No Hearing needs: No Vision needs: Yes (reading glasses) Office Procedures Cardiac Device Check Cardiac Device Check Details: Remote heart failure report generated 11/11/2024. Heart failure parameters are stable [id number] Cardiac Device Interrogation, cardio physiologic monitor Procedure code (CPT) selection complete Assessment & Plan Assessment & Plan (1) Biventricular ICD (implantable cardioverter-defibrillator) in place: Comment: September 2019 Code(s): Z95.810 - Presence of automatic (implantable) cardiac defibrillator Category: Medical Plan: See above Coding Level of Care Code Procedure Only Diagnoses Biventricular ICD (implantable cardioverter-defibrillator) in place Z95.810 CPT Codes Cardiac Device Check - Cardiac Device 15: [id number] Cardiac Device Interrogation, cardio physiologic monitor ([id number])
== END ==
PROVIDERS: PCP Internal Medicine; Visit Provider Internal Medicine Cardiovascular Disease
DX: Z45.02 Encounter for adjustment and management of automatic implantable cardiac defibrillator (principal)
CPT/HCPCS: 93297

== ENCOUNTER 2024-11-27 13:36 | Outpatient (AMB) | payer BC, SELFPAY ==
[2024-11-27 13:38] VITALS: BP 120/78; PULSE 84; BMI 40.0
--- NOTE | 2024-11-27 13:38 | A.OFFVIS_ITS ---
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 He said he has not been taking all his medications religiously including metoprolol, lisinopril, Jardiance. He takes metformin adequately. He also has not taken Lasix as needed. He said he took metoprolol last night because he was coming for follow up visit today. He has not had any significant worsening shortness of breath, orthopnea, PND, leg edema. Denies any palpitations, lightheadedness, syncope, ICD discharge. No exertional chest pain. And I asked him why he was not take his medication he said that has some GI side effects with diarrhea that he does not know in his generally just been lazy about taking his medications. Denies any other cardiovascular symptoms. [facility] Medical History Anal pain Perirectal abscess Rectal pain Obesity Back pain of lumbar region with sciatica Pain in right femur Hip pain, right Balanitis Change in bowel function Diarrhea Morbid obesity Diabetes type 2, uncontrolled Fatty liver Ventricular tachycardia Peripheral vascular disease Vitamin D deficiency GERD (gastroesophageal reflux disease) Hypercholesterolemia Left bundle branch block AZEEM (obstructive sleep apnea) HTN (hypertension) Biventricular ICD (implantable cardioverter-defibrillator) in place Nonischemic cardiomyopathy Surgical History History of permanent cardiac pacemaker placement History of cardiac catheterization Family History Father CHF (congestive heart failure) Diabetes Mother No problems noted. Social History Housing: House Alcohol intake: current Alcohol intake frequency: a few times a week Patient Tobacco Use Status: Never used Tobacco Tobacco use type: Cigarette e-Cigarette/Vaping Use: Never Used Second Hand Smoke Exposure: No service: No Current occupational status: employed Cognitive needs: No Hearing needs: No Vision needs: Yes (reading glasses) Review of Systems Const Denies chills, Denies fatigue, Denies fever(s), Denies frequent falls, Denies weakness, Denies weight gain and Denies weight loss ENT Denies dizziness Card Denies chest pain, Denies leg edema, Denies lightheadedness, Denies palpitations, Denies dyspnea, Denies dyspnea on exertion, Denies orthopnea and Denies other (loss of consciousness) Resp Denies cough, Denies dyspnea and Denies dyspnea on exertion GI Denies hematochezia and Denies change in stool character Musc Denies abnormal gait, Denies muscle weakness, Denies numbness, Denies radiating pain into limb and Denies tingling Neuro Denies abnormal gait, Denies dizziness, Denies frequent falls, Denies numbness, Denies tingling and Denies weakness Endo Denies fatigue and Denies palpitations Physical Exam Vital Signs: Last Vital Signs Pulse 84 11/27/24 13:38 BP 120/78 11/27/24 13:38 BMI result Body Mass Index 40.0 Const General: cooperative, comfortable, no acute distress, alert, awake and Physically active Nutritional Appearance: obese Orientation/consciousness: patient oriented x3 Limitations: no limitations Neck Neck: Yes trachea midline, Yes supple and Yes no JVD Resp Effort & Inspection: normal respiratory effort Auscultation: clear to auscultation bilaterally Cardio Jugular venous distension: no JVD Palpation: normal PMI Rate: regular rate Rhythm: regular rhythm Heart sounds: S1 normal heart sound present, S2 normal heart sound present and Other heart sounds present (S4 present) GI Inspection: Yes obesity Auscultation: normal bowel sounds Skin General skin exam: no rashes or lesions noted Neuro General: patient oriented x3 and no focal motor deficits Extrem General: Yes no clubbing, cyanosis or edema Psych Appearance: grossly normal Office Procedures Cardiac Device Check Cardiac Device Check Details: Biventricular Biotronik ICD in place. Programmed in DDDR at 60 beats per minute. Biventricular pacing 100% of the time. No arrhythmias noted except for couple episodes listed as SVT. Atrial and ventricular sensing is excellent. Atrial and biventricular pacing thresholds adequate. Pacing and shock lead impedance is stable. Battery life is at 53% 28718-CD Cardiac Device Check, multi lead implantable defibrillator Procedure code (CPT) selection complete EKG Details: EKG shows atrially sensed, ventricularly paced rhythm with LV pacing 99795-[id number], Complete Assessment & Plan Assessment & Plan (1) Nonischemic cardiomyopathy: Comment: 04/27/2023 Low normal LV ejection fraction of 50-55% with mild LVH with grade 1 diastolic dysfunction 2. Normal cardiac valvular Dopplers 3. Normal RV systolic pressure 4. Mildly dilated ascending aorta at 4 cm 5. 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 Suspected to be left bundle-branch block related. He has now stopped taking his guideline based medical therapy for unclear reasons. Discussed with him importance of medical therapy to reduce recurrent likelihood of cardiomyopathy. He appears to be euvolemic well compensated with good functional capacity. I have advised him to 1st start metoprolol therapy at 50 mg daily. If he tolerates this for the next 2 weeks I have advised him to start valsartan therapy at 160 mg daily. If he tolerates this I have advised him to restart Jardiance 10 mg daily. Importance of neurohormonal modulation was discussed. Follow-up echocardiogram in 6 months time. Advised to call me with any heart failure symptoms. PRN use of Lasix. Encouraged to maintain activity level and weight loss program. (2) Biventricular ICD (implantable cardioverter-defibrillator) in place: Comment: September 2019 Code(s): Z95.810 - Presence of automatic (implantable) cardiac defibrillator Category: Medical Plan: Biventricular ICD in place with good cardiac resynchronization therapy. Will continue monitor remotely for heart failure as well as device function. Will follow up in 6 months time. (3) SVT (supraventricular tachycardia): Code(s): I47.10 - Supraventricular tachycardia, unspecified Category: Medical Plan: SVT which is currently suppressed with brief episode without symptoms. Restart metoprolol therapy as above. Advised to avoid stimulants. Stress mitigation strategies were discussed. (4) Thoracic aortic aneurysm: Comment: 04/27/2023 Low normal LV ejection fraction of 50-55% with mild LVH with grade 1 diastolic dysfunction 2. Normal cardiac valvular Dopplers 3. Normal RV systolic pressure 4. Mildly dilated ascending aorta at 4 cm 5. No pericardial effusion 05/2024 Code(s): I71.20 - Thoracic aortic aneurysm, without rupture, unspecified Category: Medical Plan: Mild thoracic aortic aneurysm. Follow-up by echocardiogram next 6 months. Also suggest to continue metoprolol therapy and aggressive blood pressure control. Follow up in the clinic in 6 months time, sooner PRN. Thank you for allowing me to partake in his care Orders: Orders CA echo transthorac w con 6 Months I42.8 - Other cardiomyopathies Medications: New empagliflozin (Jardiance) 10 mg PO DAILY 30 tabs 5RF metoprolol succinate ER (Toprol XL) 50 mg PO DAILY 30 tabs 5RF valsartan 160 mg PO DAILY 30 tabs 5RF Coding Level of Care Code Est Pt Level 4 (11120) Complex EM visit Add On G2211 Diagnoses Nonischemic cardiomyopathy I42.8 Biventricular ICD (implantable cardioverter-defibrillator) in place Z95.810 SVT (supraventricular tachycardia) I47.10 Thoracic aortic aneurysm I71.20 CPT Codes Cardiac Device Check - Cardiac Device 6: 72765-TW Cardiac Device Check, multi lead implantable defibrillator ([id number]) EKG - CPT: 15587-Zzkavzjlflkfuxjvz, Complete ([id number])
--- OUTSIDE RECORDS SUMMARY | 2024-11-27 16:05 | XMS_ITS | Encounter Summary ---
Author Organization [facility] Address [address] [place] [id number] Phone
== END 2024-11-27 14:28 | disposition home or self-care (01) ==
LOC: HO.HCS 13:37
PROVIDERS: PCP Internal Medicine; Visit Provider Internal Medicine Cardiovascular Disease
DX: I42.8 Other cardiomyopathies (principal); Z95.810 Presence of automatic (implantable) cardiac defibrillator; I47.10 Supraventricular tachycardia, unspecified; I71.20 Thoracic aortic aneurysm, without rupture, unspecified
CPT/HCPCS: 93010; 93284; 99214

== ENCOUNTER → 2024-11-27 13:36 | Outpatient (BNVA) | payer BC, SELFPAY | PROVIDERS: PCP Internal Medicine; Visit Provider Internal Medicine Cardiovascular Disease | DX: I47.10 Supraventricular tachycardia, unspecified (principal) | CPT/HCPCS: 93005 ==

== ENCOUNTER 2024-11-28 09:29 | Outpatient (AMB) | payer BC, SELFPAY ==
[2024-11-28 09:37] VITALS: BP 130/76; PULSE 77; O2SAT 97; BMI 39.4
--- NOTE | 2024-11-28 09:37 | A.OFFPC_ITS ---
Vital Signs 11/28/24 09:37 Height 5 ft 9 in Weight 267 lb BMI 39.4 BP 130/76 Blood Pressure Location Lt brachial Position Sitting Pulse 77 Pulse Source Pulse Oximeter Pulse Oximetry (%) 97 Oxygen Delivery Method Room Air Intake Visit Reasons: 3 month f/u Allergies morphine (Morphine) Allergy (Mild, Verified 11/28/24 09:38) FLUSH, SHORT OF BREATH SEASONAL ALLERGIES Allergy (Unknown, Uncoded 11/28/24 09:38) SHORT OF BREATH Tobacco use date assessed: 06/15/24 Dental Screening Dental Screen Date: 06/05/24 [facility] Medical History Anal pain Perirectal abscess Rectal pain Obesity Back pain of lumbar region with sciatica Pain in right femur Hip pain, right Balanitis Change in bowel function Diarrhea Morbid obesity Diabetes type 2, uncontrolled Fatty liver Ventricular tachycardia Peripheral vascular disease Vitamin D deficiency GERD (gastroesophageal reflux disease) Hypercholesterolemia Left bundle branch block AZEEM (obstructive sleep apnea) HTN (hypertension) Biventricular ICD (implantable cardioverter-defibrillator) in place Nonischemic cardiomyopathy Surgical History History of permanent cardiac pacemaker placement History of cardiac catheterization Family History Father CHF (congestive heart failure) Diabetes Mother No problems noted. Social History Housing: House Alcohol intake: current Alcohol intake frequency: a few times a week Patient Tobacco Use Status: Never used Tobacco Tobacco use type: Cigarette e-Cigarette/Vaping Use: Never Used Second Hand Smoke Exposure: No service: No Current occupational status: employed Cognitive needs: No Hearing needs: No Vision needs: Yes (reading glasses) Questionnaire Thrive Questionnaire Date Thrive assessed: 07/20/24 I am a: Patient What is your living situation today?: I have a steady place to live Within the past 12 months, did the food you bought not last and you didn't have the money to get more?: Often true Within the past 12 months, did you worry whether your food would run out before you got money to buy more?: Never true Do you have trouble paying for medicines?: No Do you have trouble getting transportation to medical appointments?: No Do you have trouble paying your heating and electricity bill?: No Do you have trouble taking care of your child, family member or friend?: No Do you have trouble with day-to-day activities such as bathing, preparing meals, shopping, managing finances, etc.?: No Are you currently unemployed and looking for a job?: No Are you interested in more education?: No Please select the resources that you would like help with: None Currently or been in a relationship where the following occur: No concerns reported THRIVE Score: 1 VERONICA-7 AMB Questionnaire VERONICA-7 Date VERONICA - 7 assessed: 03/23/24 Source: Developed by Drs. Jasvir Salazar, Jory Sanchez, Akira Fairbanks and colleagues, with an educational saloni from [employer]. Physical exam (Primary Care) Vital Signs: Last Vital Signs Pulse 77 11/28/24 09:37 BP 130/76 11/28/24 09:37 Pulse Ox 97 11/28/24 09:37 Oxygen Delivery Method Room Air 11/28/24 09:37 BMI result Body Mass Index 39.4 Tobacco/Smoking Status: Tobacco use Status Tobacco use date assessed 06/15/24 11/28/24 09:38 Patient Tobacco Use Status Never used Tobacco 11/28/24 09:38 Tobacco use type Cigarette 11/28/24 09:38 e-Cigarette/Vaping Use Never Used 11/28/24 09:38 Thrive Assessment: Date of Thrive Assessment Date Thrive assessed 07/20/24 11/28/24 09:38 Currently or been in a relationship where the following occur: No concerns reported Const General: alert; No acute distress Eyes Conjunctivae: conjunctivae normal Resp Auscultation: clear to auscultation bilaterally Cardio Rate: regular rate Rhythm: regular rhythm GI Inspection: Yes normal to inspection Extrem General: Yes normal to inspection and No edema Results AMB Hemoglobin A1c AMB Hemoglobin A1c 9.1 % Last Edit by Kristi Paula CMA on 11/28/24 09 :51 Results Reviewed Results Reviewed: Laboratory Last Values Hgb A1c (Clinic) 9.1 % (4.0-6.0) H 11/28/24 09:39 Coding Level of Care Code Est Pt Level 4 (28496) Complex EM visit Add On G2211 Diagnoses Type 2 diabetes mellitus with hyperglycemia, without long-term current use of insulin E11.65 Diabetes mellitus adjunct faculty for medical terminology insulin use: without adjunct faculty for medical terminology use Hypercholesterolemia E78.00 Essential hypertension I10 Hypertension type: essential hypertension Nonischemic cardiomyopathy I42.8 Biventricular ICD (implantable cardioverter-defibrillator) in place Z95.810 Gastroesophageal reflux disease without esophagitis K21.9 Esophagitis presence: without esophagitis AZEEM (obstructive sleep apnea) G47.33 Obesity (BMI 30-39.9) E66.9 Assessment & Plan Assessment & Plan (1) Type 2 diabetes mellitus with hyperglycemia: Comment: Dr. Streeter Code(s): E11.65 - Type 2 diabetes mellitus with hyperglycemia Category: Medical Qualifiers: Diabetes mellitus longterm insulin use: without adjunct faculty for medical terminology use Qualified Code(s): E11.65 - Type 2 diabetes mellitus with hyperglycemia Plan: Decrease the amount of carbohydrate intake, pasta, bread, rice and potatoes are all sugar and that is aside from all the sweet stuff, remember that fruits are good but they are Sweet also. Hemoglobin A1c goal of less than 6.5. Patient on Jardiance 10 mg once a day metformin a 1000 mg twice a day (2) Hypercholesterolemia: Code(s): E78.00 - Pure hypercholesterolemia, unspecified Category: Medical Plan: Avoid fried foods, chicken skin, eggs, butter margarine, pastries and meat. Be it pork or beef they have a lot of cholesterol LDL goal of less than 100 and triglyceride of less than 150 patient is not on cholesterol medication (3) HTN (hypertension): Code(s): I10 - Essential (primary) hypertension Category: Medical Qualifiers: Hypertension type: essential hypertension Qualified Code(s): I10 - Essential (primary) hypertension Plan: Continue with blood pressure medication. Decrease salt intake and exercise continue with metoprolol 50 mg once a day Voltaren 160 mg once a day (4) Nonischemic cardiomyopathy: Comment: 04/27/2023 Low normal LV ejection fraction of 50-55% with mild LVH with grade 1 diastolic dysfunction 2. Normal cardiac valvular Dopplers 3. Normal RV systolic pressure 4. Mildly dilated ascending aorta at 4 cm 5. No pericardial effusion Code(s): I42.8 - Other cardiomyopathies Category: Medical Plan: Patient is being followed up by Cardiology continuing with ICD checks (5) Biventricular ICD (implantable cardioverter-defibrillator) in place: Comment: September 2019 Code(s): Z95.810 - Presence of automatic (implantable) cardiac defibrillator Category: Medical Plan: Continue to follow up with Cardiology (6) GERD (gastroesophageal reflux disease): Code(s): K21.9 - Gastro-esophageal reflux disease without esophagitis Category: Medical Qualifiers: Esophagitis presence: without esophagitis Qualified Code(s): K21.9 - Gastro-esophageal reflux disease without esophagitis Plan: Avoid the foods that causes that usually spicy foods, tomato products, juices, coffee, soda and foods that your sensitive to. After eating do not lie down, allow 3-4 hours before in lie down. And keep the head of bed above 30 degrees to avoid the acid from going up. (7) AZEEM (obstructive sleep apnea): Comment: CPAP use Code(s): G47.33 - Obstructive sleep apnea (adult) (pediatric) Category: Medical Plan: Continue to use the CPAP more than 4 hours a night and benefits from this. (8) Obesity (BMI 30-39.9): Code(s): E66.9 - Obesity, unspecified Category: Medical Plan: Continue with diet and exercise Plan History of Present Illness The patient is a 58-year-old male presenting for a follow-up visit. The patient has a history of hypertension, managed with metoprolol and valsartan, but has been noncompliant due to stress and forgetfulness. He has obstructive sleep apnea and uses a CPAP machine effectively for more than 4 hours a night. The patient has non-ischemic cardiomyopathy with an ICD, and he follows up with cardiology for device checks. His diabetes mellitus is poorly controlled with a hemoglobin A1c of 9.1, and he has been noncompliant with Jardiance and metformin. The patient has hypercholesterolemia with an LDL level of 104 mg/dL and has been noncompliant with lovastatin. He manages gastroesophageal reflux disease with lifestyle modifications. The patient has peripheral vascular disease and hepatic steatosis as part of his chronic conditions. He is overdue for a colon cancer screening, with the last test in 2017. Health Maintenance - Vaccinations: Up to date with shingles, tetanus, and pneumonia vaccines. - Screening: Overdue for colon cancer screening since 2017. - Lifestyle: Encouraged to continue diet and exercise for weight management. Social History - Stress: Reports significant stress related to personal responsibilities, including home renovations for his daughter. - Exercise: Engages in physical activity, including playing golf. Review of Systems - General: Reports feeling tired, denies any recent heart episodes. - Cardiovascular: Denies chest pain, reports occasional swelling. - Neurological: Reports intermittent neuropathy symptoms. Physical Exam Results - Labs: Hemoglobin A1c 9.1, LDL cholesterol 104 mg/dL, blood sugar 247 mg/dL, elevated liver enzymes, normal blood count, normal electrolytes, normal renal function, no proteinuria. Plan Patient was informed and verbally consented to the use of an ambient scribe for clinic note documentation during this visit. 1. Hypertension The patient is advised to continue with metoprolol 50 mg once daily and valsartan 160 mg once daily for hypertension management. Emphasis was placed on medication adherence to improve blood pressure control. 2. Diabetes Mellitus The patient is encouraged to achieve a hemoglobin A1c goal of less than 6.5%. He is prescribed Jardiance 10 mg once daily and metformin 1000 mg twice daily, with a focus on improving medication adherence. 3. Hypercholesterolemia The patient is advised to aim for an LDL cholesterol goal of less than 70 mg/dL. He is reminded of the importance of taking lovastatin regularly to manage cholesterol levels. 4. Obstructive Sleep Apnea The patient is advised to continue using the CPAP machine for more than 4 hours nightly, as it provides significant benefits. 5. Non-Ischemic Cardiomyopathy With Icd The patient is to continue follow-up with cardiology for ICD checks and an echocardiogram is recommended in six months. 6. Gastroesophageal Reflux Disease (Gerd) The patient is advised to continue managing GERD with lifestyle modifications. 7. Preventative Care The patient is overdue for a colon cancer screening, with the last test conducted in 2017. He is up to date with shingles, tetanus, and pneumonia vaccinations. Discussion Notes During the visit, I discussed the importance of medication adherence with the patient, particularly for managing hypertension, diabetes, and hypercholesterolemia. We reviewed the need for regular follow-ups with cardiology for ICD checks and the upcoming echocardiogram. I emphasized the significance of lifestyle modifications for managing GERD and encouraged continued use of the CPAP machine for sleep apnea. We also discussed the overdue colon cancer screening and the patient's current vaccination status. Patient Instructions - Take all prescribed medications as directed, including metoprolol, valsartan, Jardiance, metformin, and lovastatin. - Continue using the CPAP machine for more than 4 hours each night. - Follow up with cardiology for ICD checks and schedule an echocardiogram in six months. - Maintain lifestyle modifications for GERD management. - Schedule a colon cancer screening as soon as possible. - Stay up to date with vaccinations, including flu and COVID-19 vaccines. Orders: Orders AMB Hemoglobin A1c Today Z13.9 - Encounter for screening, unspecified Medications: Refilled lovastatin 40 mg PO DAILY 90 tabs 3RF
--- OUTSIDE RECORDS SUMMARY | 2024-11-28 11:14 | XMS_ITS | Clinical Summary ---
Author Organization [facility] Address [address] [facility] [address] [place] [address] Phone Care Team Providers Care Timber Framer Helper Name Role Phone Ondina France MD Primary Care Provider [phone] Papi Peterson MD Unavailable [phone] Allergies Active Allergy Reactions Criticality Noted Date Comments Morphine 09/27/2019 Medications metFORMIN (GLUCOPHAGE) 500 MG tablet Take 500 mg by mouth daily with breakfast. Active furosemide (LASIX) 20 MG tabletIndications:pul monary edema due to chronic heart failure Take 40 mg by mouth. Indications: fluid in the lungs due to chronic heart failure Active lovastatin (MEVACOR) 40 MG tablet Take 40 mg by mouth daily. Active lisinopril (PRINIVIL,ZESTRIL) 40 MG tabletIndications:hyp ertension Take 40 mg by mouth daily. Indications: high blood pressure Active metoprolol succinate (TOPROL-XL) 100 MG 24 hr tabletIndications:Car diac resynchronization therapy defibrillator (ROTARY SHEAR OPERATOR-D) in place Take 1 tablet (100 mg total) by mouth daily. 0 11/17/19 20 Active Active Problems Problem Noted Date Diagnosed Date Cardiac resynchronization th erapy defibrillator (ROTARY SHEAR OPERATOR-D) in place 11/17/2019 Overview (11/17/2019): ROTARY SHEAR OPERATOR-D implant 09/28/2019 Biotronik Assessment & Plan (01/03/2020 3:38 PM EDT): Device interrogation today shows excellent BiV pacing. Lead parameters are reasonable. Of note he as programmed LV 3-1 at implant with good thresholds but is currently programmed LV 1 - 4. Currently does not capture from LV3, and given relatively narrow QRS and good remodeling response we did not change it. LV output increased. No arrhythmias noted. He can continue with remotes every 3 months and annual IPDE. Assessment & Plan (11/17/2019 9:21 AM EDT): Excellent device diagnostics although it improved his overall heart rate control. He will concentrate on remembering to take his medications on a daily basis. He is on metoprolol succinate and will consider taking 50 mg twice daily instead of 100 mg once a day. He will focus on getting at least two 15-minute walks per day. [facility] 6 to 8 weeks with echo optimization as well as evaluation from the advanced heart failure team for medication adjustments. LBBB (left bundle branch block) 11/17/2019 Dilated cardiomyopathy 09/28/2019 Overview (01/03/2020): H/o HTN, LBBB. Thought to have DCM. Assessment & Plan (01/03/2020 3:40 PM EDT): On reasonable dosage of ACEI and BBL. Has not needed diuretics. Prelim ECHO read suggests close to 50% LVEF, so no need to consider Entresto or Farxiga or ARNI. Will check labs today. He can graduate from [facility] and will arrange follow-up with Dr. Nguyen and his local automotive parts specialist. Social History Tobacco Use Types Packs/Day Years Used Date Smoking Tobacco: Never Smokeless Tobacco: Never Education Answer Date Recorded Are you interested in more education? Not on hanna e 07/03/2022 Are you concerned about learning? Not on file 07/03/2022 No 07/03/2022 No 07/03/2022 Digital Access Answer Date Recorded No 08/01/2022 No 08/01/2022 No 08/01/2022 Reliable internet access at home? Not on file 08/01/2022 Device with a working camera? Not on file Sex and Gender Information Value Date Recorded Sex Assigned at Male 03/21/2019 11:40 AM EST Legal Sex Male 11:25 AM EST Gender Identity Male 03/21/2019 11:40 AM EST Sexual Orientation Straight 03/21/2019 11 :40 AM EST Last Filed Vital Signs Vital Sign Reading Time Taken Comments Blood Pressure 146/80 01/03/2020 2:04 PM EDT Pulse 65 01/03/2020 2:04 PM EDT Temperature 36.2 C (97.1 F) 09/29/2019 8:51 AM EDT Respiratory Rate 16 09/29/2019 10:34 AM EDT Oxygen Saturation 98% 09/29/2019 8:51 AM EDT Inhaled Oxygen Concentration 21% 09/29/2019 3 :36 AM EDT Weight 134.7 kg (297 lb) 01/03/2020 2:04 PM EDT Height 175.3 cm (5' 9 ) 01/03/2020 2:04 PM EDT Body Mass Index 43.86 01/03/2020 2:04 PM EDT Plan of Treatment Health Maintenance Due Date Last Done Comments LIPID PANEL 1965 DEPRESSION SCREENING 1977 HEPATITIS C SCREENING 12/04/1983 HIV ONE-TIME SCREENING (18-6 5 YEARS) 12/04/1983 COLOGUARD 2010 COLONOSCOPY 2010 COLORECTAL CANCER SCREENING 2010 FIT TEST 2010 FOBT 2010 SIGMOIDOSCOPY 2010 VIRTUAL COLONOSCOPY 2010 ZOSTER VACCINES (1 of 2) 12/04/2015 PNEUMOCOCCAL VACCINES (50+ years) (2 of 2 - PCV) 05/28/2017 05/28/2016 CREATININE LEVEL 01/02/2021 01/03/2020, 09/29/2019, 09/25/2019 POTASSIUM LEVEL 01/02/2021 01/03/2020, 09/29/2019, 09/25/2019 INFLUENZA VACCINE (#1) 2024 12/26/2015 COVID-19 VACCINE (2 - 2024-2 6 season) 2024 06/03/2020 Adult Td,Tdap Booster 06/16/2025 06/17/2015 SMOKING STATUS SCREENING (On ce After 26 Yrs) Completed 01/03/2020 HEPATITIS A VACCINES Aged Out No long er eligible based on patient's age to complete this topic HIB VACCINES Aged Out No longer eligi ble based on patient's age to complete this topic MENINGOCOCCAL VACCINES (ACWY) Aged Out No longer eligible based on patient's age to complete this topic MENINGOCOCCAL VACCINES (B) Aged Out N o longer eligible based on patient's age to complete this topic Medical Devices Implanted Type Area Splicing Supervisor Device Identifier Shelf Expiration Date Model / Serial / Lot Land Leasing Examiner-D Rivacor Hf-T Qp Df4 High [employer] With Promri Ti And Cls - [id number] Implanted:Qty: 1 on 09/28/2019 by Ewa Nguyen MD, PhD at [facility] ICD Left: Chest BIOTRONIK 06/05/2021 [id number] / [id number] / Lead Icd Plexa Df4 65cm Promri S 65 Single Coil - [id number] Implanted:Qty: 1 on 09/28/2019 by Ewa Nguyen MD, PhD at [facility] Lead BIOTRONIK 05/05/2021 [id number] / [id number] / Lead Pacing Solia 53cm Steroid Eluting Ra Is 1 Bipolar Promri Maldonado - [id number] Implanted:Qty: 1 on 09/28/2019 by Ewa Nguyen MD, PhD at [facility] Lead BIOTRONIK 07/05/2021 [id number] / [id number] / Lead Lv Sentus Promri Otw Qp S-85/49 Quadripolar - [id number] Implanted:Qty: 1 on 09/28/2019 by Ewa Nguyen MD, PhD at [facility] Lead BIOTRONIK 12/05/2020 [id number] / [id number] / Procedures Procedure Name Priority Date/Time Associated Diagnosis Comments BASIC METABOLIC PANEL Routine 01/03/2020 3:09 PM EDT Chronic combined systolic and diastolic heart failure from Last 3 Months or Most Recently Relevant to Health Maintenance Results * (ABNORMAL) Basic metabolic panel (01/03/2020 3:09 PM EDT) SODIUM 138 135 - 145 mmol/L [facility] POTASSIUM 3.8 3.4 - 5.0 mmol/L [facility] CHLORIDE 102 98 - 108 mmol/L [facility] CO2 25 23 - 32 mmol/L [facility] BUN 18 8 - 25 mg/dL [facility] CREATININE 0.90 0.60 - 1.50 mg/dL [facility] GLUCOSE 201(H) 70 - 110 mg/dL [facility] CALCIUM 9.7 8.5 - 10.5 mg/dL [facility] EGFR 96 >59 mL/min/1. 73m2 [facility] Comment:Estimated glomerular filtration rate calculated using the CKD-EPI equation. ANION GAP 11 3 - 17 mmol/L [facility] Blood 01/03/2020 3:09 PM EDT 01/03/2020 6:07 PM EDT Pily Moe MD, PhD LAB BLOOD ORDERABLES Final Re sult [address] [address] from Last 3 Months or Most Recently Relevant to Health Maintenance [facility] Advance Directives For more information, please contact: [phone] (9AM - 5PM [place], Wednesday-Wednesday) * Full Code (Presumed) (Latest Code Status on File) Date Activated Date Inactivated Comments 09/28/2019 3:08 PM * Full Code (Presumed) Date Activated Date Inactivated Comments 09/28/2019 1:16 PM 09/28/2019 3:08 PM * Full Code (Presumed) Date Activated Date Inactivated Comments 09/28/2019 8:28 AM 09/28/2019 1:16 PM Care Teams Timber Framer Helper Relationship Specialty Start Date End Date Ondina France MD [address] [place] [address] Drive [address] [place] [phone] PCP - General Internal Medicine 03/21/19 Papi Peterson MD [address] [place] [address] Dr [address] [place] [address] Freight Car Inspector Cardiology 03/21/19 Additional Source Comments The information contained in this document represents components of the legal health record. It is not the complete legal health record.[facility]
--- OUTSIDE RECORDS SUMMARY | 2024-11-28 11:14 | XMS_ITS | Clinical Summary ---
Author Organization [address] [place] [address] Care Team Providers Care Floral Artist Name Role Phone Unavailable Primary Care Provider [...] (0.75 ML) SUBCUTANEOUSLY EVERY WEEK 4 Active Active Problems No known active problems Encounters Date Type Department Care Team Description 10/11/2024 1:45 PM EDT Office Visit [facility] [address] [place] [address] Nehal Harrington PA Eye irritation (Primary Dx); Hordeolum externum of right upper eyelid from Last 3 Months Social History Tobacco [...] Sign Reading Time Taken Comments Blood Pressure 153/87 10/11/2024 2:19 PM EDT Pulse 82 10/11/2024 2:19 PM EDT Temperature 36.7 C (98 F) 10/11/2024 2:19 PM EDT Respiratory Rate 17 10/11/2024 2:19 PM EDT Oxygen Saturation 98% 10/11/2024 2:19 PM EDT Inhaled Oxygen Concentration - - Weight 122.5 kg (270 lb) 10/11/2024 2:19 PM EDT Height 175.3 cm (5' 9 ) 10/11/2024 2:19 PM EDT Body Mass Index 39.87 10/11/2024 2:19 PM EDT Plan of Treatment Health Maintenance Due Date Last Done Comments HIV screening 1978 Hepatitis C screening 12/04/1983 Tetanus adult (Td q 10,TDAP once) 1985 Lipid disorder screening 2005 Colon cancer screening, Colonoscopy 2010 Pneumococcal Vaccine (50+ ye ars) (1 of 1 - PCV) 12/04/2015 Shingles vaccine (Shingrix) (1 of 2 - Shingrix (RZV) 2 Dose Standard Series) 12/04/2015 Influenza vaccine 10/06/2024 Covid-19 vaccine series (1 - season) 2024 Diabetes screening 03/25/2027 03/25/2024 RSV Immunization (1 - 1-dose 75+ series) 2040 Meningococcal B Vaccine Aged Out No l onger eligible based on patient's age to complete this topic Meningococcal Vaccine Aged Out No fiona kyler eligible based on patient's age to complete this topic Procedures Procedure Name Priority Date/Time Associated Diagnosis Comments BASIC METABOLIC PANEL STAT 03/25/2024 1:37 PM EST from Last 3 Months or Most Recently Relevant to Health Maintenance Results * (ABNORMAL) Basic metabolic panel (03/25/2024 1:37 PM EST) [facility] Glucose 316(H) 65 - 110 mg/dL 03/25/2024 2:22 PM [facility] Comment: Non-fastin-110 mg/dL Fasting (minimum 6 hrs): 65-99 mg/dL BUN 12 7 - 18 mg/dL [...] 2:22 PM [facility] Comment: [facility] utilizes CKD-EPI Creatinine 2020 to report eGFR. Values < 60 mL/min/1.73 m2 may indicate CKD if present for more than three months AND creatinine is at steady state. The eGFR provides a rough estimate of kidney function. For further guidance, please refer to the CKD: Adult Shank Turner Signature pathway. Creatinine Delta 03/25/2024 2:22 PM [facility] Comment:No previous creatini ne <5.00 mg/dL is available within the previous 12 months to calculate a delta creatinine. Blood Venipuncture / Unknown 03/25/2024 1:37 PM EST 03/25/2024 1:40 PM EST [facility] LAB BLOOD ORDERABLES Final Resu lt [facility] [address] [place] [address], [facility] [[email or web address]] [phone] from Last 3 Months or Most Recently Relevant to Health Maintenance Insurance BCBS BCBS
--- OUTSIDE RECORDS SUMMARY | 2024-11-28 11:15 | XMS_ITS | Encounter Summary ---
Author Organization [facility] Address [address] [place] [address] Phone Care Team Providers Care Form Grader Operator Name Role Phone Ondina France MD Primary Care Provider [phone] Papi Peterson MD Unavailable Encounter Details Date Type Department Care Team (Late st Contact Info) Description 09/29/2019 Orders Only [facility] [address], [address] [place] [address] Ewa Nguyen MD, PhD [address] [place] [address] [email or web address] Atrial fibrillation, unspecified type (Primary Dx) Social History Tobacco Use Types Packs/Day Years Used Date Smoking Tobacco: Never Smokeless Tobacco: Never Sex and Gender Information Value Date Recorded Sex Assigned at Male 03/21/2019 11:40 AM EST Legal Sex Male 11:25 AM EST Gender Identity Male 03/21/2019 11:40 AM EST Sexual Orientation Straight 03/21/2019 11 :40 AM EST documented as of this encounter Plan of Treatment Not on file documented as of this encounter Visit Diagnoses Diagnosis Atrial fibrillation, unspecified type- Primary documented in this encounter Care Teams Form Grader Operator Relationship Specialty Start Date End Date Ondina France MD [address] [place] [address] PCP - General Internal Medicine 03/21/19 Papi Peterson MD [address] [place] [address] [place] [address] Airline Radio Operator Cardiology 03/21/19 documented as of this encounter Additional Source Comments The information contained in this document represents components of the legal health record. It is not the complete legal health record.[facility]
--- OUTSIDE RECORDS SUMMARY | 2024-11-28 11:15 | XMS_ITS | Encounter Summary ---
Author Organization [facility] Address [address] [place] [address] Phone Care Team Providers Care Barrel Filler Name Role Phone Ondina France MD Primary Care Provider [phone] Papi Peterson MD Unavailable [phone] Encounter Details Date Type Department Care Team (Late st Contact Info) Description 09/28/2019 Procedure Pass [facility] EP Pacer Lab [address], [address], [address] [place] [address] Social History Tobacco Use Types Packs/Day Years [...] documented as of this encounter Visit Diagnoses Not on filedocumented in this encounter Care Teams Barrel Filler Relationship Specialty Start Date End Date Ondina France MD [address] [place] [address] PCP - General Internal Medicine 03/21/19 Papi Peterson MD [address] [place] [address] [address] [place], [place] [phone] Senior Bi Developer Cardiology 03/21/19 documented as of this encounter Additional Source Comments The information contained in this document represents components of the legal health record. It is not the complete legal health record.[facility]
--- OUTSIDE RECORDS SUMMARY | 2024-11-28 11:15 | XMS_ITS | Encounter Summary ---
Author Organization [facility] Address [address] [place] [address] Phone Care Team Providers Care Marine Engineer Name Role Phone Ondina France MD Primary Care Provider [phone] Papi Peterson MD Unavailable [phone] Encounter Details Date Type Department Care Team (Late st Contact Info) Description 03/04/2020 Procedure Pass [facility] Cardiology Division [address] [place] [address], [address] [place] [address] Social History Tobacco Use Types Packs/Day Years [...] on filedocumented in this encounter Care Teams Marine Engineer Relationship Specialty Start Date End Date Ondina France MD [address] [place] [id number] PCP - General Internal Medicine 03/21/19 Papi Peterson MD [address] [place] [address] [address] [place] [address] Ad Operations Intern Cardiology 03/21/19 documented as of this encounter Additional Source Comments The information contained in this document represents components of the legal health record. It is not the complete legal health record.[facility]
--- OUTSIDE RECORDS SUMMARY | 2024-11-28 11:15 | XMS_ITS | Encounter Summary ---
Author Organization [facility] Address [address] [place] [address] Phone Care Team Providers Care Build Engineer Name Role Phone Ondina France MD Primary Care Provider [phone] Papi Peterson MD Unavailable [phone] Encounter Details Date Type Department Care Team (Late st Contact Info) Description 12/27/2019 Procedure Pass [facility] Cardiac US [address] [place] [address] Social History Tobacco Use Types Packs/Day Years [...] on filedocumented in this encounter Care Teams Build Engineer Relationship Specialty Start Date End Date Ondina France MD [address] [place] [address] PCP - General Internal Medicine 03/21/19 Papi Peterson MD [address] [place] [address] Dr [address] [place] [address] Chief Internal Auditor Cardiology 03/21/19 documented as of this encounter Additional Source Comments The information contained in this document represents components of the legal health record. It is not the complete legal health record.[facility]
== END 2024-11-28 10:09 | disposition home or self-care (01) ==
LOC: HO.HMCH 09:30
PROVIDERS: PCP Internal Medicine; Visit Provider Internal Medicine
DX: E11.65 Type 2 diabetes mellitus with hyperglycemia (principal); I42.8 Other cardiomyopathies; E66.9 Obesity, unspecified; Z68.39 Body mass index [BMI] 39.0-39.9, adult; E78.00 Pure hypercholesterolemia, unspecified; I10 Essential (primary) hypertension; Z95.810 Presence of automatic (implantable) cardiac defibrillator; K21.9 Gastro-esophageal reflux disease without esophagitis; G47.33 Obstructive sleep apnea (adult) (pediatric)

== ENCOUNTER → 2024-11-28 09:29 | Outpatient (BNVA) | payer BC, SELFPAY | PROVIDERS: PCP Internal Medicine; Visit Provider Internal Medicine | DX: E11.65 Type 2 diabetes mellitus with hyperglycemia (principal); E11.51 Type 2 diabetes mellitus with diabetic peripheral angiopathy without gangrene; E78.00 Pure hypercholesterolemia, unspecified; I10 Essential (primary) hypertension; I42.8 Other cardiomyopathies; K21.9 Gastro-esophageal reflux disease without esophagitis; G47.33 Obstructive sleep apnea (adult) (pediatric); E66.9 Obesity, unspecified; K76.0 Fatty (change of) liver, not elsewhere classified; Z68.39 Body mass index [BMI] 39.0-39.9, adult; Z99.89 Dependence on other enabling machines and devices; Z95.810 Presence of automatic (implantable) cardiac defibrillator | CPT/HCPCS: 83036 ==

== ENCOUNTER → 2024-12-28 23:59 | Outpatient (BNV) | payer BC, SELFPAY ==
--- NOTE | 2025-01-01 15:49 | MHC.OFFVIS ---
Intake Visit Reasons: remote HF monitoring- Biotronik Allergies morphine (Morphine) Allergy (Mild, Verified 11/28/24 09:38) FLUSH, SHORT OF BREATH SEASONAL ALLERGIES Allergy (Unknown, Uncoded 11/28/24 09:38) SHORT OF BREATH PFSH Medical History Anal pain Perirectal abscess Rectal pain Obesity Back pain of lumbar region with sciatica Pain in right femur Hip pain, right Balanitis Change in bowel function Diarrhea Morbid obesity Diabetes type 2, uncontrolled Fatty liver Ventricular tachycardia Peripheral vascular disease Vitamin D deficiency GERD (gastroesophageal reflux disease) Hypercholesterolemia Left bundle branch block AZEEM (obstructive sleep apnea) HTN (hypertension) Biventricular ICD (implantable cardioverter-defibrillator) in place Nonischemic cardiomyopathy Surgical History History of permanent cardiac pacemaker placement History of cardiac catheterization Family History Father CHF (congestive heart failure) Diabetes Mother No problems noted. Social History Housing: House Alcohol intake: current Alcohol intake frequency: a few times a week Patient Tobacco Use Status: Never used Tobacco Tobacco use type: Cigarette e-Cigarette/Vaping Use: Never Used Second Hand Smoke Exposure: No service: No Current occupational status: employed Cognitive needs: No Hearing needs: No Vision needs: Yes (reading glasses) Office Procedures Cardiac Device Check Cardiac Device Check Details: Remote heart failure report generated 12/28/2024. Heart failure parameters are stable [id number] Cardiac Device Interrogation, cardio physiologic monitor Procedure code (CPT) selection complete Assessment & Plan Assessment & Plan (1) Biventricular ICD (implantable cardioverter-defibrillator) in place: Comment: September 2019 Code(s): Z95.810 - Presence of automatic (implantable) cardiac defibrillator Category: Medical Plan: See above Coding Level of Care Code Procedure Only Diagnoses Biventricular ICD (implantable cardioverter-defibrillator) in place Z95.810 CPT Codes Cardiac Device Check - Cardiac Device 15: [id number] Cardiac Device Interrogation, cardio physiologic monitor ([id number])
== END ==
PROVIDERS: PCP Internal Medicine; Visit Provider Internal Medicine Cardiovascular Disease
DX: I50.9 Heart failure, unspecified (principal); Z95.810 Presence of automatic (implantable) cardiac defibrillator
CPT/HCPCS: 93297

== ENCOUNTER → 2025-01-25 12:43 | Outpatient (BNV) | payer BC, SELFPAY | PROVIDERS: PCP Internal Medicine | DX: I50.9 Heart failure, unspecified (principal); Z45.02 Encounter for adjustment and management of automatic implantable cardiac defibrillator | CPT/HCPCS: 93295 ==

== ENCOUNTER → 2025-02-21 14:48 | Outpatient (BNV) | payer BC, SELFPAY | PROVIDERS: PCP Internal Medicine; Visit Provider Internal Medicine Cardiovascular Disease | DX: Z45.02 Encounter for adjustment and management of automatic implantable cardiac defibrillator (principal) | CPT/HCPCS: 93297 ==